=== PATIENT | male | born 1965 | race Caucasian/White ===

== ENCOUNTER → 2016-11-08 | Outpatient (CLI) | payer OTHER ==
--- NOTE | 2016-11-13 09:52 | SLEEPHOME ---
DATE OF PROCEDURE: 11/08/2016 ORDERED BY: Merna Canales NP Diagnostic home sleep testing was performed due to concern for the obstructive sleep apnea syndrome in this patient with a history of nonrestorative. For testing, NOX-T3 respiratory monitoring device was utilized. Continuous record was made of pulse, oxygen saturation, chest and abdominal strain, airflow, and body position. 4 hours and 34 minutes of data were reviewed. Of these, 4 hours and 7 minutes were marked as time in bed. During the interval marked time in bed, there were 56 respiratory events identified of 10 seconds in duration or greater for a respiratory event index of 13.6. The events were primarily obstructive. Occasional central and mixed apneas were also seen. Baseline pulse rate 66 beats per minute. Pulse rate ranged 58-89 beats per minute. Baseline oxygen saturation 91%. Lowest oxygen saturation 83%. Testing was performed in both the supine and non-supine positions. IMPRESSION: Abnormal home sleep testing with repetitive respiratory events and oxygen desaturations to 83% with a respiratory event index of 13.6 is consistent with the obstructive sleep apnea syndrome. RECOMMENDATION: The patient should be referred for a formal sleep evaluation and in-laboratory pressure titration given the significant oxygen desaturations and occurrence of central apneic events.
== END ==
LOC: M SLEEP 09:03
PROVIDERS: ATTEND Nurse Practitioner Adult Health
DX: G47.30 Sleep apnea, unspecified (principal); R40.0 Somnolence

== ENCOUNTER → 2017-03-01 | Outpatient (REF) | payer OTHER | LOC: M SFHCPLAZ 08:53 | PROVIDERS: ATTEND Family Medicine | DX: Z13.9 Encounter for screening, unspecified (principal); R51 Headache ==

== ENCOUNTER → 2017-04-08 | Outpatient (REF) | payer OTHER | LOC: M SFHCPLAZ 10:54 | PROVIDERS: ATTEND Family Medicine | DX: R68.89 Other general symptoms and signs (principal); N52.9 Male erectile dysfunction, unspecified ==

== ENCOUNTER → 2017-04-15 | Outpatient (REF) | payer OTHER ==
[2017-04-18 14:15] LABS: METANEPHRINE URINE 190 ug/24 hr (45-290); NORMETANEPHRINE URINE 254 ug/24 hr (82-500)
== END ==
LOC: M SFHCPLAZ 17:56
PROVIDERS: ATTEND Family Medicine
DX: R68.89 Other general symptoms and signs (principal)

== ENCOUNTER → 2018-01-13 | Outpatient (REF) | payer OTHER ==
[2018-01-13 12:40] LABS: ESTIMATED AVERAGE GLUCOSE 143 MG/DL (60-110); HEMOGLOBIN A1c 6.6 %
[2018-01-13 12:53] LABS: ALKALINE PHOSPHATASE 78 U/L (45-117); ALT/SGPT 46 U/L (12-78); ANION GAP 8 MEQ/L (8-16); AST/SGOT 17 U/L (7-37); BILIRUBIN,TOTAL 0.2 MG/DL (0.2-1.0); BLOOD UREA NITROGEN 19 MG/DL (7-18); CALCIUM LEVEL 8.4 MG/DL (8.5-10.1); CARBON DIOXIDE LEVEL 25 MEQ/L (21-32); CHLORIDE LEVEL 110 MEQ/L (98-107); CREATININE FOR GFR 1.09 MG/DL (0.70-1.30); GLOMERULAR FILTRATION RATE > 60.0 (>56); GLUCOSE, FASTING 108 MG/DL (70-100); POTASSIUM SERUM 4.5 MEQ/L (3.5-5.1); SODIUM LEVEL 143 MEQ/L (136-145)
[2018-01-13 12:54] LABS: ALBUMIN 3.8 GM/DL (3.2-5.2); ALBUMIN/GLOBULIN RATIO 1.23 (1.00-1.93); CHOLESTEROL LEVEL 189 MG/DL (<200); CHOLESTEROL RISK RATIO 5.906 (<5); HDL CHOLESTEROL 32 MG/DL (>40); NON-HDL-C 157 MG/DL; PSA SCREENING 1.14 NG/ML (< 4.0); TOTAL PROTEIN 6.9 GM/DL (6.4-8.2); TRIGLYCERIDES LEVEL 260 MG/DL (<150)
== END ==
LOC: M SFHCPLAZ 09:26
DX: Z00.00 Encounter for general adult medical examination without abnormal findings (principal)
CPT/HCPCS: 83036

== ENCOUNTER → 2018-03-19 | Outpatient (REF) | payer OTHER ==
[2018-03-19 13:10] LABS: ANION GAP 3 MEQ/L (8-16); BLOOD UREA NITROGEN 14 MG/DL (7-18); CARBON DIOXIDE LEVEL 30 MEQ/L (21-32); CHLORIDE LEVEL 110 MEQ/L (98-107); CHOLESTEROL LEVEL 128 MG/DL (<200); CHOLESTEROL RISK RATIO 3.764 (<5); CREATININE FOR GFR 1.04 MG/DL (0.70-1.30); GLOMERULAR FILTRATION RATE > 60.0 (>56); GLUCOSE, FASTING 106 MG/DL (70-100); HDL CHOLESTEROL 34 MG/DL (>40); LDL CHOLESTEROL 54.4 MG/DL (<100); NON-HDL-C 94 MG/DL; POTASSIUM SERUM 4.6 MEQ/L (3.5-5.1); PSA SCREENING 1.41 NG/ML (< 4.0); SODIUM LEVEL 143 MEQ/L (136-145); TRIGLYCERIDES LEVEL 198 MG/DL (<150); URIC ACID 4.9 MG/DL (3.5-7.2)
[2018-03-19 13:31] LABS: CREATININE, URINE 86.4 MG/DL; MALB URINE SIEMENS < 5.0 MG/L; MAU/CREAT RATIO 5.7 MCG/MG (0.0-30.0)
[2018-03-19 13:49] LABS: ESTIMATED AVERAGE GLUCOSE 131 MG/DL (60-110); HEMOGLOBIN A1c 6.2 %
== END ==
LOC: M SFHCPLAZ 08:51
DX: Z12.5 Encounter for screening for malignant neoplasm of prostate (principal); E11.9 Type 2 diabetes mellitus without complications; M70.42 Prepatellar bursitis, left knee

== ENCOUNTER → 2019-05-04 | Outpatient (REF) | payer OTHER ==
[2019-05-04 10:07] LABS: BLOOD UREA NITROGEN 19 MG/DL (7-18); CARBON DIOXIDE LEVEL 26 MEQ/L (21-32); CHLORIDE LEVEL 110 MEQ/L (98-107); CHOLESTEROL LEVEL 198 MG/DL (<200); CHOLESTEROL RISK RATIO 6.187 (<5); CREATININE FOR GFR 1.13 MG/DL (0.70-1.30); GLOMERULAR FILTRATION RATE > 60.0 (>56); GLUCOSE, FASTING 124 MG/DL (70-100); HDL CHOLESTEROL 32 MG/DL (>40); NON-HDL-C 166 MG/DL; POTASSIUM SERUM 4.7 MEQ/L (3.5-5.1); SODIUM LEVEL 141 MEQ/L (136-145); TRIGLYCERIDES LEVEL 511 MG/DL (<150)
[2019-05-04 11:20] LABS: HEMOGLOBIN A1c 6.3 %
== END ==
LOC: M SFHCPLAZ 08:14
PROVIDERS: ATTEND Family Medicine
DX: E11.9 Type 2 diabetes mellitus without complications (principal); I10 Essential (primary) hypertension

== ENCOUNTER → 2019-06-13 | Outpatient (CLI) | payer OTHER ==
--- NOTE | 2019-06-16 07:34 | REP ---
MRI LUMBAR SPINE WITHOUT CONTRAST REASON FOR EXAMINATION: Right sided weakness. COMPARISON: None. TECHNIQUE: MRI of the lumbar spine was performed utilizing sagittal STIR, T1 and T2 and axial T1 and T2 weighted images without contrast. FINDINGS: There is normal alignment and curvature of the lumbar spine. Vertebral body and intervertebral disc heights are maintained. There is mild disc desiccation at L3-L4 and L4-L5. There is no bone marrow edema. There is no significant spinal canal stenosis or neural foraminal compromise. The visualized spinal cord are unremarkable. The conus medullaris terminates at L1-L2. The paraspinal soft-tissue are within normal limits. LEVEL SPECIFIC OBSERVATIONS: L3-L4: Mild disc bulge with indentation along the ventral thecal sac. Bilateral facet arthropathy. Mild spinal canal stenosis. No neural foraminal compromise. L4-L5, L5-S1: Bilateral facet arthropathy. Note is made of a 2.4 cm Tarlov cyst at S2 on the left with effacement of the surrounding fat and scalloping of the S2 vertebral body. IMPRESSION: 1. L3-L4 spondylosis with mild narrowing of the spinal canal. The remaining lumbar levels are without significant spinal canal stenosis of neural foraminal compromise. 2. 2cm Tarlov cyst at S2 on the left with scalloping of S2 vertebral body. Electronically Signed by Jesse Marrero MD 06/17/2019 08:51 A
== END ==
LOC: M RAD 11:22
PROVIDERS: ATTEND Family Medicine
DX: R53.1 Weakness (principal)

== ENCOUNTER → 2019-07-20 | Outpatient (CLI) | payer OTHER ==
--- NOTE | 2019-07-31 01:09 | ECWPNPC ---
PATIENT NAME: VIRIDIANA CASTANEDA : 1965 GENDER: MALE VISIT DATE: 07/20/2019 DISCHARGE DATE: 07/20/19 1208 VISIT LOCKED DATE TIME: PHYSICIAN: PATRICIA MCCOY MD RESOURCE: PATRICIA MCCOY MD REASON FOR APPOINTMENT 1. LBP HISTORY OF PRESENT ILLNESS HISTORY OF PRESENT ILLNESS: PAIN THE PATIENT DESCRIBES THE PAIN... 54 YEAR OLD MALE PATIENT WITH A HISTORY OF CHRONIC LOW BACK AND LEG PAIN. THE PATIENT DESCRIBES THE PAIN ACHING, BURNING, STABBING, SHOOTING, SHARP, AND CONTINUOUS WITH A PAIN SCORE OF 6-10/10 DEPENDING ON PHYSICAL ACTIVITY. THE PATIENT STATES HIS PAIN BEGINS IN HIS LOW BACK AND RADIATES DOWN BOTH LEGS. THE PATIENT STATES HIS PAIN BEGAN AFTER HE TWISTED HIS BACK IN THE BATHROOM IN FEBRUARY OF THIS YEAR AND HAS SINCE GOTTEN WORSE. THE PATIENT SAYS HIS PAIN INCREASES FROM LIFTING OBJECTS AND AFTER STANDING FOR LONG PERIODS OF TIME HE NEEDS TO SIT TO REST FROM THE PAIN. THE PATIENT SAYS HE HAS TRIED GABAPENTIN AND IBUPROFEN TO AID IN PAIN RELIEF, YET THE PAIN PERSISTS. 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 PATIENT DENIES UNEXPLAINABLE WEIGHT LOSS, FEVER, CHILLS, NEW CHANGES ON HIS URINARY OR BOWEL CONTROL. FALL RISK SCREENING: SCREENING :NO FALLS REPORTED IN THE LAST YEAR CURRENT MEDICATIONS TAKING NEXIUM 40 MG CAPSULE DELAYED RELEASE 1 CAPSULE ORALLY ONCE A DAY TAKING GLUCOMETER DIRECTED CHECK SUGAR DAILY TAKING BLOOD GLUCOSE TEST - STRIP DIRECTED IN VITRO DAILY ON SIDE OF FINGER. DX: E11.9 TAKING LANCETS - MISCELLANEOUS DIRECTED ON SIDE OF FINGER DAILY BEFORE BREAKFAST. DX: E11.9 TAKING NITROGLYCERIN 0.4 MG TABLET SUBLINGUAL DIRECTED SUBLINGUAL DAILY TAKING FLONASE ALLERGY RELIEF 50 MCG/ACT SUSPENSION 1 SPRAY IN EACH NOSTRIL NASALLY ONCE A DAY, NOTES: PRN TAKING METHYLPREDNISOLONE 4 MG TABLET 1 TABLET WITH FOOD OR MILK IN THE MORNING ORALLY TAKING TRAMADOL HCL 50 MG TABLET 1 TABLET NEEDED ORALLY THREE TIMES DAILY NEEDED FOR PAIN. MDD 3 TAKING IBUPROFEN 800 MG TABLET 1 TABLET WITH FOOD OR MILK NEEDED ORALLY TWICE DAILY NEEDED FOR SEVERE PAIN, NOTES: ALTERNATE WITH ULTRACET TAKING PREDNISONE 10 MG TABLET 2 TABLET ORALLY TWICE DAILY TAKING ADRENACLICK 0.3 MG/0.3ML SOLUTION AUTO-INJECTOR DIRECTED INJECTION AT ONSET OF BEE STING AND THEN PROCEED TO ER FOR MONITORING, NOTES: KEEP ONE AT HOME AND ONE IN THE CAR. NOT-TAKING NAPROXEN 500 MG TABLET 1 TABLET WITH FOOD OR MILK NEEDED ORALLY EVERY 12 HRS NOT-TAKING METOPROLOL SUCCINATE ER 50 MG TABLET EXTENDED RELEASE 24 HOUR 1 TABLET ORALLY ONCE A DAY NOT-TAKING TIZANIDINE HCL 4 MG TABLET 1 TABLET NEEDED ORALLY THREE TIMES A DAY NOT-TAKING PREDNISONE 20 MG TABLET 3 TABLET ORALLY ONCE A DAY NOT-TAKING LYRICA 50 MG CAPSULE 1 CAPSULE ORALLY BID NOT-TAKING ASPIRIN 81 MG TABLET CHEWABLE 1 TABLET ORALLY ONCE A DAY NOT-TAKING VERAPAMIL HCL ER 120 MG TABLET EXTENDED RELEASE 1 TABLET ORALLY ONCE A DAY NOT-TAKING ATORVASTATIN CALCIUM 40 MG TABLET 1 TABLET ORALLY ONCE A DAY NOT-TAKING BUSPIRONE HCL 10 MG TABLET 1 TABLET ORALLY TWICE A DAY NOT-TAKING SILDENAFIL CITRATE 20 MG TABLET DIRECTED ORALLY 3-5 TABS 30 MIN TO 4 HOURS PRIOR TO SEXUAL ACTIVITY. MDD 4, NOTES: DO NOT SUBMIT TO INSURANCE. PT TO PAY [id number] NOT-TAKING LISINOPRIL 2.5 MG TABLET 1 TABLET ORALLY ONCE A DAY NOT-TAKING METFORMIN HCL 500 MG TABLET 2 TABS AT MEALS ORALLY TWICE A DAY, NOTES: START WITH ONE TAB AT DINNER FOR 5 DAYS, THEN INCREASE TO 1 TAB AT BREAKFAST AND DINNER FOR 5 DAYS, THEN INCREASE TO 2 TABS TWICE DAILY NOT-TAKING GABAPENTIN 300 MG CAPSULE 1 CAPSULE ORALLY THREE TIMES DAILY NOT-TAKING NAPROXEN 500 MG TABLET 1 TABLET WITH FOOD OR MILK NEEDED ORALLY EVERY 12 HRS, NOTES: DUPLICATE NOT-TAKING NAPROXEN 500 MG TABLET 1 TABLET WITH FOOD OR MILK NEEDED ORALLY EVERY 12 HRS NOT-TAKING CHANTIX STARTING MONTH DEA 0.5 MG X 11 & 1 MG X 42 TABLET DIRECTED ORALLY DIRECTED ON PACKAGING NOT-TAKING PREDNISONE 20 MG TABLET 2 TABLET ORALLY ONCE A DAY NOT-TAKING LEVOFLOXACIN 500 MG TABLET 1 TABLET ORALLY ONCE A DAY NOT-TAKING TESSALON PERLES 100 MG CAPSULE 1 CAPSULE NEEDED ORALLY THREE TIMES A DAY NOT-TAKING METFORMIN HCL ER 500 MG TABLET EXTENDED RELEASE 24 HOUR 2 TABLET WITH EVENING MEAL ORALLY ONCE A DAY DISCONTINUED TRAMADOL HCL 50 MG TABLET 1 TABLET NEEDED ORALLY BID MEDICATION LIST REVIEWED AND RECONCILED WITH THE PATIENT PAST MEDICAL HISTORY GERD ALLERGIES PENICILLIN (FOR ALLERGIES USE ONLY): HIVES - ALLERGY BEE STINGS : ANAPHYLAXIS - ALLERGY SURGICAL HISTORY [facility] 2001 FAMILY HISTORY FATHER: 75 YRS MOTHER: ALIVE 75 YRS BROTHER: ALIVE 51 YRS, UNKNOWN SISTER: ALIVE 53 YRS, HEALTHY 1 BROTHER(S) , 3 SISTER(S) . 2DAUGHTER(S) - HEALTHY. SOCIAL HISTORY GENERAL: TOBACCO USE ARE YOU A:CURRENT SMOKER ARE YOU INTERESTED IN QUITTING?READY TO QUIT PREVIOUS QUIT ATTEMPTS?YES, MORE THAN 6 MONTHS AGO. COUNSELED THE PATIENT ON TOBACCO USE, CESSATION [id number]/16/2019 HOW MANY CIGARETTES A DAY DO YOU SMOKE?21-30 HOW SOON AFTER YOU WAKE UP DO YOU SMOKE YOUR FIRST CIGARETTE?6-30 MIN HOW OFTEN DO YOU SMOKE CIGARETTES?EVERY DAY PATIENT COUNSELED ON THE DANGERS OF TOBACCO USE AND URGED TO QUIT:10/08/2016 HIV / HEP-C SCREENING HIV TEST OFFERED TO PATIENT:YES DATE OFFERED:10/08/2016 TEST ACCEPTED:YES HEP-C TEST OFFERED TO PATIENT:YES DATE OFFERED:10/08/2016 TEST ACCEPTED:YES EDUCATION COLLEGE. DIET: REGULAR. LANGUAGE [place]. DOMESTIC VIOLENCE DO YOU FEEL SAFE IN YOUR ENVIRONMENT?YES BMI CARE GOAL FOLLOW-UP ABOVE NORMAL BMI FOLLOW-UPEXERCISE PROMOTION: STRETCHING RECREATIONAL DRUG USE DRUG USE?NO EXERCISE: NO REGULAR EXERCISE. 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 CLINIC PFS, CLERGY, PUBLIC HEALTH REFERRALS HAS THE PATIENT BEEN EDUCATED REGARDING HIS/HER PLAN OF CARE?YES HAS THE PATIENT BEEN EDUCATED REGARDING PAIN, THE RISK FOR PAIN, THE IMPORTANCE OF EFFECTIVE PAIN MANAGEMENT, AND THE PAIN ASSESSMENT PROCESS?YES LATEX QUESTIONNAIRE LATEX ALLERGY : HAVE YOU EVER DEVELOPED ANY TYPE OF REACTION AFTER HANDLING LATEX PRODUCTS SUCH RUBBER GLOVES, CONDOMS, DIAPHRAGMS, BALLOONS, SOCKS, OR UNDERWEAR?NO LATEX ALLERGY : HAVE YOU EVER DEVELOPED ANY TYPE OF REACTION DURING OR AFTER DENTAL APPOINTMENT, VAGINAL/RECTAL EXAMINATION, SURGICAL PROCEDURE, OR ANY OTHER EXPOSURE?NO DATE ASKED : 04/08/2019 LATEX RISK : HAVE YOU EVER HAD ANY DIFFICULTY BREATHING OR HIVES AFTER EATING OR HANDLING ANY FRUITS, OR VEGETABLES; SUCH KIWI, BANANAS, STONE FRUITS, OR CHESTNUTSNO LATEX RISK : DO YOU HAVE A PREVIOUS PERSONAL HISTORY OF MORE THAN NINE SURGERIES, SPINA BIFIDA, OR REPEATED CATHERIZATIONS? NO LATEX RISK : ARE YOU FREQUENTLY EXPOSED TO LATEX PRODUCTS IN YOUR OCCUPATION?YES CAFFEINE CAFFEINE USE?NO ADVANCE DIRECTIVE ADVANCE DIRECTIVE DISCUSSED WITH PATIENT:YES DECLINED CATHOLIC NO YAZIDI BELIEFS THAT WOULD IMPACT HEALTH CARE. MARITAL STATUS: . 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 SEXUAL HX HAD SEX IN THE LAST 12 MONTHS (VAGINAL, ORAL, OR ANAL)?YES WITHWOMEN ONLY PREVENTION STRATEGIES DISCUSSED:OTHER USE PROTECTION?NO HAVE YOU EVER HAD AN STD?NO HOSPITALIZATION/MAJOR DIAGNOSTIC PROCEDURE DENIES PAST HOSPITALIZATION REVIEW OF SYSTEMS REVIEWED BY: PROVIDER: PATRICIA MCCOY MD . CONSTITUTIONAL: ANY CHANGE IN YOUR MEDICAL CONDITION? NO . CHILLS NO . FEVER NO . INFECTION: DO YOU HAVE NEW INFECTIONS? NO . DO YOU HAVE HISTORY OF MRSA? NO . MUSCULOSKELETAL: ANY NEW PATTERNS OF PAIN OR NUMBNESS? NO . GASTROENTEROLOGY: ANY NEW CHANGE IN BOWEL CONTROL? NO . GENITOURINARY: ANY NEW CHANGE IN BLADDER CONTROL? NO . IS THERE A CHANCE YOU COULD BE ? NO . HEMATOLOGY/LYMPH: DO YOU TAKE ANY BLOOD THINNERS? (FOR EXAMPLE- COUMADIN, PLAVIX, AGGRENOX, PLATEL, PRADAXA, OR XARELTO) NO . WHEN WAS YOUR LAST DOSE? DATE: TIME: . NEUROLOGY: HAVE YOU FALLEN IN THE PAST 12 MONTHS? NO . ANY NEW EXTREMITY NUMBNESS OR WEAKNESS? YES, BILAT LEG WEAKNESS, NUMBNESS BURNING PAIN . CARDIOLOGY: DO YOU HAVE A PACEMAKER OR DEFIBRILLATOR? NO . RESPIRATORY: HAVE YOU BEEN SICK IN THE PAST WEEK? NO . FEVER NO . FLU LIKE SYMPTOMS? NO . COUGH NO . INTEGUMENTARY: DO YOU HAVE ANY RASHES OR OPEN SORES? NO . ALLERGIC/IMMUNO: ARE YOU ALLERGIC TO IV DYE? NO . ANY NEW ALLERGIES? NO . PSYCHIATRIC: DO YOU HAVE THOUGHTS OF HURTING YOURSELF OR SOMEONE ELSE? NO . ARE YOU ABUSED, NEGLECTED, OR IN AN UNSAFE ENVIRONMENT? NO . ENDOCRINOLOGY: ARE YOU DIABETIC? NO . OTHER: DO YOU NEED ANY PRESCRIPTIONS? NO . IF YES, PLEASE LIST: ____ . ANY NEW PROBLEMS WITH YOUR MEDICATIONS? NO . WHEN DID YOU LAST EAT? ____ . WHEN DID YOU LAST DRINK? ____ . WHAT DID YOU LAST DRINK? ____ . NAME OF PERSON DRIVING YOU HOME? ____ . DO YOU HAVE ANY OTHER QUESTIONS OR CONCERNS NO . VITAL SIGNS WT 245.8 LBS, HT 67 IN, BMI 38.49 INDEX, BP 135/86 MM HG, HR 78 /MIN, RR 18 /MIN, TEMP 98.0 F, OXYGEN SAT % 98%, NA INITIALS AW 1034, REVIEWED BY: EM. EXAMINATION GENERAL EXAMINATION: PATIENT IS ALERT O X 3 AND COOPERATIVE. LUNGS CLEAR, TO AUSCULTATION. HEART: NO MURMURS OR GALLOPS; FACIAL CRANIAL NERVES ARE GROSSLY NORMAL. GOOD SYMMETRY OF FACIAL MUSCLE MOVEMENT. NORMAL VISUAL CHA. TENDERNESS IN THE LOW BACK, ESPECIALLY ON THE RIGHT SIDE. ANTALGIC WALK. STRAIGHT LEG RAISE OF THE RIGHT LEG IS POSITIVE AT 40 DEGREES AND 50 DEGREES FOR THE LEFT LEG FOR RADICULOPATHY. MRI OF THE LUMBAR SPINE DONE ON 06/13/2019 SHOWS BULGING DISC AT L3-L4, SOME SPINAL STENOSIS, AND FACET ARTHROPATHY CHANGES AT MULTIPLE LEVELS. ASSESSMENTS INTERVERTEBRAL DISC DISORDER WITH RADICULOPATHY OF LUMBAR REGION - M51.16 (PRIMARY) SPINAL STENOSIS OF LUMBAR REGION, UNSPECIFIED WHETHER NEUROGENIC CLAUDICATION PRESENT - M48.061 TREATMENT INTERVERTEBRAL DISC DISORDER WITH RADICULOPATHY OF LUMBAR REGION CLINICAL NOTES: WE DISCUSSED SEVERAL ISSUES WITH MR. CASTANEDA' PAIN MANAGEMENT CASE. DUE TO THE LUMBAR RADICULOPATHY, I WOULD LIKE TO MOVE FORWARD WITH A LUMBAR EPIDURAL STEROID INJECTION AT THIS TIME. WE DISCUSSED THE BENEFITS, RISKS, AND ALTERNATIVES OF THE INJECTION AND THE PATIENT WOULD LIKE TO PROCEED. I AM REQUESTING FOR A DOCTOR TO DOCTOR AGREEMENT FROM THE PRIMARY CARE PHYSICIAN TO PRESCRIBE NARCOTICS FOR THE PATIENT. THE PATIENT WILL FOLLOW UP IN SEVERAL WEEKS AFTER THE INJECTION. INSTRUCTIONS WERE GIVEN, QUESTIONS WERE ANSWERED, PATIENT REPORTS UNDERSTANDING AND AGREES WITH THE PLAN. I, RADHIKA PAK, DOCUMENTED THE ABOVE INFORMATION ACTING A SCRIBE FOR DR. MCCOY. I HAVE REVIEWED THE ABOVE DOCUMENT, WRITTEN BY RADHIKA WHITFIELD AND I VERIFY THAT IT IS ACCURATE. DEAR KENJI CROOK MD: THANK YOU FOR YOUR KIND REFERRAL OF VIRIDIANA CASTANEDA. IF YOU WANT TO DISCUSS HIS CASE WITH ME PLEASE CALL ME AT THE PAIN CENTER AT [phone]. SINCERELY, PATRICIA MCCOY MD PAIN MEDICINE . PROCEDURE CODES FA211 ESTABILISHED PATIENT [facility] FACILITY CHARGE [id number] CURRENT MEDS W/DOSAGES DOCUMENTED G8730 PAIN ASSESS POS TOOL F/U PLAN DOC DISPOSITION & COMMUNICATION FOLLOW UP REASON: LESI ELECTRONICALLY SIGNED BY PATRICIA MCCOY MD, MD ON 07/30/2019 AT 05:56 PM EDT DISCLAIMER : THIS IS A VISIT SUMMARY EXTRACTED FROM THE [employer] CHART. IT IS NOT A COPY OF THE [employer] PROGRESS NOTE. MTDD
== END ==
LOC: M PAIN 10:15
PROVIDERS: ATTEND Anesthesiology
DX: M51.16 Intervertebral disc disorders with radiculopathy, lumbar region (principal); M48.061 Spinal stenosis, lumbar region without neurogenic claudication; K21.9 Gastro-esophageal reflux disease without esophagitis; F17.210 Nicotine dependence, cigarettes, uncomplicated; Z79.891 Long term (current) use of opiate analgesic; Z79.899 Other long term (current) drug therapy; Z96.651 Presence of right artificial knee joint; Z88.0 Allergy status to penicillin; Z91.030 Bee allergy status

== ENCOUNTER → 2019-08-13 | Outpatient (CLI) | payer OTHER, SELFPAY ==
--- NOTE | 2019-08-13 13:00 | REP ---
Lumbar spine four views with the patient standing: There are no comparisons. There is questionable bilateral L5 spondylolysis. A CT or MRI would be confirmatory. There is no spondylolisthesis. There is mild disc space narrowing and anterior osteophytic formation and L3, L4 and L5 compatible with degenerative disc disease at these levels. The disc spaces are otherwise unremarkable. Vertebral body heights and alignment are normal. The facets and pedicles are unremarkable. The sacroiliac articulations are unremarkable. Impression: Questionable bilateral L5 spondylolysis. This could be confirmed with CT or MRI. There is no spondylolisthesis. Multilevel degenerative disc disease. Otherwise, negative lumbar spine. Electronically Signed by Jaylon Bell MD 08/13/2019 12:52 P
== END ==
LOC: M RAD 11:23
PROVIDERS: ATTEND Family Medicine
DX: M51.36 Other intervertebral disc degeneration, lumbar region (principal); M48.062 Spinal stenosis, lumbar region with neurogenic claudication

== ENCOUNTER → 2019-08-25 | Outpatient (CLI) | payer OTHER ==
[~2019-08-25] MED LIST: ISOVUE-M 300 61% 15ML VIAL (Q9967) As Ordered ONE; LIDOCAINE 1% SDV INJ 30 ML VIAL As Ordered ONE; methylPREDNISolone SUSP 40 MG/ML (DEPO-medrol) VIAL (J1030) As Ordered ONE
--- NOTE | 2019-08-25 17:39 | REP ---
C-ARM VIEWS LUMBAR SPINE: CLINICAL HISTORY: Pain. Three C-ARM views lower lumbar spine are performed during injection by Dr. Lazo. Needle is seen at the L4 level and a small amount of contrast was injected. 12 seconds of fluoroscopy time was utilized. Electronically Signed by Jaylon Bell MD 08/26/2019 02:16 P
--- NOTE | 2019-08-29 23:12 | ECWPNPC ---
PATIENT NAME: VIRIDIANA CASTANEDA : 1965 GENDER: MALE VISIT DATE: 08/25/2019 DISCHARGE DATE: 08/25/19 1052 VISIT LOCKED DATE TIME: PHYSICIAN: PATRICIA MCCOY MD RESOURCE: PATRICIA MCCOY MD REASON FOR APPOINTMENT 1. L3-L4 LESI HISTORY OF PRESENT ILLNESS HISTORY OF PRESENT ILLNESS: PAIN THE PATIENT DESCRIBES THE PAIN... FALL RISK SCREENING: SCREENING :NO FALLS REPORTED IN THE LAST YEAR CURRENT MEDICATIONS TAKING NEXIUM 40 MG CAPSULE DELAYED RELEASE 1 CAPSULE ORALLY ONCE A DAY TAKING GLUCOMETER DIRECTED CHECK SUGAR DAILY TAKING BLOOD GLUCOSE TEST - STRIP DIRECTED IN VITRO DAILY ON SIDE OF FINGER. DX: E11.9 TAKING LANCETS - MISCELLANEOUS DIRECTED ON SIDE OF FINGER DAILY BEFORE BREAKFAST. DX: E11.9 TAKING NITROGLYCERIN 0.4 MG TABLET SUBLINGUAL DIRECTED SUBLINGUAL DAILY, NOTES: NEVER TAKEN TAKING FLONASE ALLERGY RELIEF 50 MCG/ACT SUSPENSION 1 SPRAY IN EACH NOSTRIL NASALLY ONCE A DAY, NOTES: PRN TAKING ADRENACLICK 0.3 MG/0.3ML SOLUTION AUTO-INJECTOR DIRECTED INJECTION AT ONSET OF BEE STING AND THEN PROCEED TO ER FOR MONITORING, NOTES: KEEP ONE AT HOME AND ONE IN THE CAR. TAKING NAPROXEN 500 MG TABLET 1 TABLET WITH FOOD OR MILK NEEDED ORALLY EVERY 12 HRS TAKING GABAPENTIN 300 MG CAPSULE 2CAPSULE ORALLY THREE TIMES DAILY, NOTES: 08/24/19 2100 NOT-TAKING METHYLPREDNISOLONE 4 MG TABLET 1 TABLET WITH FOOD OR MILK IN THE MORNING ORALLY NOT-TAKING TRAMADOL HCL 50 MG TABLET 1 TABLET NEEDED ORALLY THREE TIMES DAILY NEEDED FOR PAIN. MDD 3 NOT-TAKING PREDNISONE 10 MG TABLET 2 TABLET ORALLY TWICE DAILY NOT-TAKING IBUPROFEN 800 MG TABLET 1 TABLET WITH FOOD OR MILK NEEDED ORALLY TWICE DAILY NEEDED FOR SEVERE PAIN, NOTES: ALTERNATE WITH ULTRACET NOT-TAKING PREDNISOLONE 5 MG (21) TABLET THERAPY PACK DIRECTED ORALLY NOT-TAKING PREDNISONE 20 MG TABLET 2 TABLET ORALLY ONCE A DAY, NOTES: ONE WEEK AGO NOT-TAKING METOPROLOL SUCCINATE ER 50 MG TABLET EXTENDED RELEASE 24 HOUR 1 TABLET ORALLY ONCE A DAY NOT-TAKING TIZANIDINE HCL 4 MG TABLET 1 TABLET NEEDED ORALLY THREE TIMES A DAY NOT-TAKING PREDNISONE 20 MG TABLET 3 TABLET ORALLY ONCE A DAY NOT-TAKING LYRICA 50 MG CAPSULE 1 CAPSULE ORALLY BID NOT-TAKING ASPIRIN 81 MG TABLET CHEWABLE 1 TABLET ORALLY ONCE A DAY NOT-TAKING VERAPAMIL HCL ER 120 MG TABLET EXTENDED RELEASE 1 TABLET ORALLY ONCE A DAY NOT-TAKING ATORVASTATIN CALCIUM 40 MG TABLET 1 TABLET ORALLY ONCE A DAY NOT-TAKING BUSPIRONE HCL 10 MG TABLET 1 TABLET ORALLY TWICE A DAY NOT-TAKING SILDENAFIL CITRATE 20 MG TABLET DIRECTED ORALLY 3-5 TABS 30 MIN TO 4 HOURS PRIOR TO SEXUAL ACTIVITY. MDD 4, NOTES: DO NOT SUBMIT TO INSURANCE. PT TO PAY [id number] NOT-TAKING LISINOPRIL 2.5 MG TABLET 1 TABLET ORALLY ONCE A DAY NOT-TAKING METFORMIN HCL 500 MG TABLET 2 TABS AT MEALS ORALLY TWICE A DAY, NOTES: START WITH ONE TAB AT DINNER FOR 5 DAYS, THEN INCREASE TO 1 TAB AT BREAKFAST AND DINNER FOR 5 DAYS, THEN INCREASE TO 2 TABS TWICE DAILY NOT-TAKING NAPROXEN 500 MG TABLET 1 TABLET WITH FOOD OR MILK NEEDED ORALLY EVERY 12 HRS, NOTES: DUPLICATE NOT-TAKING NAPROXEN 500 MG TABLET 1 TABLET WITH FOOD OR MILK NEEDED ORALLY EVERY 12 HRS NOT-TAKING CHANTIX STARTING MONTH DEA 0.5 MG X 11 & 1 MG X 42 TABLET DIRECTED ORALLY DIRECTED ON PACKAGING NOT-TAKING PREDNISONE 20 MG TABLET 2 TABLET ORALLY ONCE A DAY NOT-TAKING LEVOFLOXACIN 500 MG TABLET 1 TABLET ORALLY ONCE A DAY NOT-TAKING TESSALON PERLES 100 MG CAPSULE 1 CAPSULE NEEDED ORALLY THREE TIMES A DAY NOT-TAKING METFORMIN HCL ER 500 MG TABLET EXTENDED RELEASE 24 HOUR 2 TABLET WITH EVENING MEAL ORALLY ONCE A DAY MEDICATION LIST REVIEWED AND RECONCILED WITH THE PATIENT PAST MEDICAL HISTORY GERD ALLERGIES PENICILLIN (FOR ALLERGIES USE ONLY): HIVES - ALLERGY BEE STINGS : ANAPHYLAXIS - ALLERGY SURGICAL HISTORY [facility] FAMILY HISTORY FATHER: 75 YRS MOTHER: ALIVE 75 YRS BROTHER: ALIVE 51 YRS, UNKNOWN SISTER: ALIVE 53 YRS, HEALTHY 1 BROTHER(S) , 3 SISTER(S) . 2DAUGHTER(S) - HEALTHY. SOCIAL HISTORY GENERAL: TOBACCO USE ARE YOU A:CURRENT SMOKER ARE YOU INTERESTED IN QUITTING?READY TO QUIT CUTTING DOWN PREVIOUS QUIT ATTEMPTS?YES, MORE THAN 6 MONTHS AGO. COUNSELED THE PATIENT ON TOBACCO USE, CESSATION [id number]/16/2019 HOW MANY CIGARETTES A DAY DO YOU SMOKE?21-30 HOW SOON AFTER YOU WAKE UP DO YOU SMOKE YOUR FIRST CIGARETTE?6-30 MIN HOW OFTEN DO YOU SMOKE CIGARETTES?EVERY DAY PATIENT COUNSELED ON THE DANGERS OF TOBACCO USE AND URGED TO QUIT:10/08/2016 HIV / HEP-C SCREENING HIV TEST OFFERED TO PATIENT:YES DATE OFFERED:10/08/2016 TEST ACCEPTED:YES HEP-C TEST OFFERED TO PATIENT:YES DATE OFFERED:10/08/2016 TEST ACCEPTED:YES EDUCATION COLLEGE. DIET: REGULAR. LANGUAGE LAO. DOMESTIC VIOLENCE DO YOU FEEL SAFE IN YOUR ENVIRONMENT?YES BMI CARE GOAL FOLLOW-UP ABOVE NORMAL BMI FOLLOW-UPEXERCISE PROMOTION: STRETCHING RECREATIONAL DRUG USE DRUG USE?NO EXERCISE: NO REGULAR EXERCISE. LEARNING BARRIERS / SPECIAL NEEDS CHANGE FROM LAST VISIT?NO BARRIERS TO LEARNING?NO HEARING IMPAIRED?NO VISION IMPAIRED?YES COGNITIVELY IMPAIRED?NO :CORRECTIVE LENSES READING READINESS TO LEARN?YES LEARNING PREFERENCES?YES :DEMONSTRATION/VERBAL INSTRUCTION LEARNING CAPABILITIES PRESENT?YES EMOTIONAL BARRIERS?NO SPECIAL DEVICES?NO CORPORATE AIRCRAFT MECHANIC NEEDED?NO PAIN CLINIC PFS, CLERGY, PUBLIC HEALTH REFERRALS HAS THE PATIENT BEEN EDUCATED REGARDING HIS/HER PLAN OF CARE?YES HAS THE PATIENT BEEN EDUCATED REGARDING PAIN, THE RISK FOR PAIN, THE IMPORTANCE OF EFFECTIVE PAIN MANAGEMENT, AND THE PAIN ASSESSMENT PROCESS?YES LATEX QUESTIONNAIRE LATEX ALLERGY : HAVE YOU EVER DEVELOPED ANY TYPE OF REACTION AFTER HANDLING LATEX PRODUCTS SUCH RUBBER GLOVES, CONDOMS, DIAPHRAGMS, BALLOONS, SOCKS, OR UNDERWEAR?NO LATEX ALLERGY : HAVE YOU EVER DEVELOPED ANY TYPE OF REACTION DURING OR AFTER DENTAL APPOINTMENT, VAGINAL/RECTAL EXAMINATION, SURGICAL PROCEDURE, OR ANY OTHER EXPOSURE?NO DATE ASKED : 04/08/2019 LATEX RISK : HAVE YOU EVER HAD ANY DIFFICULTY BREATHING OR HIVES AFTER EATING OR HANDLING ANY FRUITS, OR VEGETABLES; SUCH KIWI, BANANAS, STONE FRUITS, OR CHESTNUTSNO LATEX RISK : DO YOU HAVE A PREVIOUS PERSONAL HISTORY OF MORE THAN NINE SURGERIES, SPINA BIFIDA, OR REPEATED CATHERIZATIONS? NO LATEX RISK : ARE YOU FREQUENTLY EXPOSED TO LATEX PRODUCTS IN YOUR OCCUPATION?YES CAFFEINE CAFFEINE USE?NO ADVANCE DIRECTIVE ADVANCE DIRECTIVE DISCUSSED WITH PATIENT:YES DECLINED INFORMATION OR ASSISTANCE AT THIS TIME ZOROASTRIAN NO METHODIST BELIEFS THAT WOULD IMPACT HEALTH CARE. MARITAL STATUS: . 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 SEXUAL HX HAD SEX IN THE LAST 12 MONTHS (VAGINAL, ORAL, OR ANAL)?YES WITHWOMEN ONLY PREVENTION STRATEGIES DISCUSSED:OTHER USE PROTECTION?NO HAVE YOU EVER HAD AN STD?NO HOSPITALIZATION/MAJOR DIAGNOSTIC PROCEDURE NO HOSPITALIZATION HISTORY. REVIEW OF SYSTEMS REVIEWED BY: PROVIDER: . CONSTITUTIONAL: ANY CHANGE IN YOUR MEDICAL CONDITION? NO . CHILLS NO . FEVER NO . INFECTION: DO YOU HAVE NEW INFECTIONS? NO . DO YOU HAVE HISTORY OF MRSA? NO . MUSCULOSKELETAL: ANY NEW PATTERNS OF PAIN OR NUMBNESS? YES PT REPORTS INCREASED PAIN RADIATING DOWN RIGHT LEG - THIS STARTED AFTER A LONG CAR RIDE BUT CONTINUES TODAY . GASTROENTEROLOGY: ANY NEW CHANGE IN BOWEL CONTROL? NO . GENITOURINARY: ANY NEW CHANGE IN BLADDER CONTROL? NO . IS THERE A CHANCE YOU COULD BE ? NO . HEMATOLOGY/LYMPH: DO YOU TAKE ANY BLOOD THINNERS? (FOR EXAMPLE- COUMADIN, PLAVIX, AGGRENOX, PLATEL, PRADAXA, OR XARELTO) NO . WHEN WAS YOUR LAST DOSE? DATE: TIME: . NEUROLOGY: HAVE YOU FALLEN IN THE PAST 12 MONTHS? NO . ANY NEW EXTREMITY NUMBNESS OR WEAKNESS? NO . CARDIOLOGY: DO YOU HAVE A PACEMAKER OR DEFIBRILLATOR? NO . RESPIRATORY: HAVE YOU BEEN SICK IN THE PAST WEEK? NO . FEVER NO . FLU LIKE SYMPTOMS? NO . COUGH NO . INTEGUMENTARY: DO YOU HAVE ANY RASHES OR OPEN SORES? NO . ALLERGIC/IMMUNO: ARE YOU ALLERGIC TO IV DYE? NO . ANY NEW ALLERGIES? NO . PSYCHIATRIC: DO YOU HAVE THOUGHTS OF HURTING YOURSELF OR SOMEONE ELSE? NO . ARE YOU ABUSED, NEGLECTED, OR IN AN UNSAFE ENVIRONMENT? NO . ENDOCRINOLOGY: ARE YOU DIABETIC? NO . OTHER: DO YOU NEED ANY PRESCRIPTIONS? NO . IF YES, PLEASE LIST: ____ . ANY NEW PROBLEMS WITH YOUR MEDICATIONS? NO . WHEN DID YOU LAST EAT? ____08/24/191999 . WHEN DID YOU LAST DRINK? ____08/25/19 06 . WHAT DID YOU LAST DRINK? ____WATER . NAME OF PERSON DRIVING YOU HOME? ____WIFE . DO YOU HAVE ANY OTHER QUESTIONS OR CONCERNS NO . VITAL SIGNS WT 247.8 LBS, HT 67 IN, BMI 38.81 INDEX, BP 161/90 MM HG, HR 84 /MIN, RR 18 /MIN, TEMP 97.8 F, OXYGEN SAT % 97%, SAFE IN ENV? (Y/N) YES, NA INITIALS AW 0910, REVIEWED BY: BRIAN. ASSESSMENTS INTERVERTEBRAL DISC DISORDER WITH RADICULOPATHY OF LUMBAR REGION - M51.16 (PRIMARY) TREATMENT INTERVERTEBRAL DISC DISORDER WITH RADICULOPATHY OF LUMBAR REGION [facility] FLUORO GUIDE SPINE INJECTION (PAIN)[id number] PROCEDURES PRE PROCEDURE DIAGNOSIS LUMBAR DISC DISORDER WITH RADICULOPATHY POST PROCEDURE DIAGNOSIS LUMBAR DISC DISORDER WITH RADICULOPATHY PROCEDURE LUMBAR EPIDURAL STEROID INJECTION UNDER FLUOROSCOPIC GUIDANCE SURGEON DR. PATRICIA MCCOY HEM MARKER NONE ANESTHESIA LOCAL PRE PROCEDURE NOTE THE PATIENT HAS A HISTORY OF CHRONIC LOW BACK PAIN. I EVALUATED THE PATIENT AND REVIEWED THE CHART. I WENT OVER THE RISKS, ALTERNATIVES, AND BENEFITS ASSOCIATED WITH THIS PROCEDURE. THE PATIENT WOULD LIKE TO PROCEED AND GIVES CONSENT TO PERFORM THE PROCEDURE. THE PATIENT DENIES UNEXPLAINABLE WEIGHT LOSS, FEVER, CHILLS, OR NEW CHANGES IN URINARY OR BOWEL CONTROL. DESCRIPTION OF PROCEDURE THE PATIENT WAS BROUGHT TO THE PROCEDURE ROOM AND PLACED IN THE PRONE POSITION. THE LUMBOSACRAL AREA WAS CLEANED WITH BETADINE SOLUTION AND DRAPED ASEPTICALLY. THE PROCEDURE WAS DONE UNDER STERILE CONDITIONS. I CHECKED LATERALITY AND THE LEVEL WHERE THE PROCEDURE WAS GOING TO BE PERFORMED WITH THE PATIENT AND THE SUPPORTING STAFF AT THE MOMENT OF THE TIME OUT IN THE PROCEDURE ROOM. UNDER FLUOROSCOPIC GUIDANCE, THE TARGET POINT WAS SELECTED AT THE INTERLAMINAR LEVEL OF L3-L4. LIDOCAINE WAS USED TO NUMB THE SKIN AND THE SUBCUTANEOUS TISSUE BELOW IT. EPIDURAL TUOHY NEEDLE, 17-GAUGE, WAS ADVANCED UNDER FLUOROSCOPIC GUIDANCE AND FOLLOWING PATIENT FEEDBACK UNTIL THE EPIDURAL SPACE WAS REACHED, 7 CM DEEP INTO THE SKIN BY THE LOSS OF RESISTANCE TECHNIQUE. ISOVUE M DYE 30%, 0.25 ML, WAS INJECTED SHOWING ADEQUATE SPREAD OF THE DYE. THEN, A SOLUTION OF 3 ML OF NORMAL SALINE WITH DEPO-MEDROL 60 MG WAS INJECTED SLOWLY FOLLOWING PATIENT FEEDBACK. THERE WAS NO EVIDENCE OF BLOOD, PARESTHESIA OR CEREBROSPINAL FLUID DURING THE PROCEDURE. THE PATIENT WAS SENT TO THE RECOVERY ROOM. THE PATIENT WAS MOVING THE EXTREMITIES AND DOING WELL. THERE WAS NO COMPLICATION DURING THE PROCEDURE. FLUOROSCOPY TIME WAS 12 SECONDS. POST PROCEDURE NOTE THE PATIENT WILL BE SEEN IN A FOLLOW UP IN THE NEXT FEW WEEKS. INSTRUCTIONS WERE GIVEN, QUESTIONS WERE ANSWERED, AND THE PATIENT EXPRESSED UNDERSTANDING AND AGREES WITH THE PLAN. I, RADHIKA PAK, DOCUMENTED THE ABOVE INFORMATION ACTING A SCRIBE FOR DR. MCCOY. I HAVE REVIEWED THE ABOVE DOCUMENT, WRITTEN BY RADHIKA WHITFIELD AND I VERIFY THAT IT IS ACCURATE. PROCEDURE CODES 35599 LUMBAR/SACRAL W/ IMAGING 6045F RADXPS IN END [id number] PXD DISPOSITION & COMMUNICATION FOLLOW UP 2 WEEKS ELECTRONICALLY SIGNED BY PATRICIA MCCOY MD, MD ON 08/29/2019 AT 07:37 AM EDT DISCLAIMER : THIS IS A VISIT SUMMARY EXTRACTED FROM THE [employer] CHART. IT IS NOT A COPY OF THE [employer] PROGRESS NOTE. MTDD
== END ==
LOC: M PAIN 09:00
PROVIDERS: ATTEND Anesthesiology
DX: M51.16 Intervertebral disc disorders with radiculopathy, lumbar region (principal); K21.9 Gastro-esophageal reflux disease without esophagitis; F17.210 Nicotine dependence, cigarettes, uncomplicated; Z96.651 Presence of right artificial knee joint; Z79.899 Other long term (current) drug therapy; Z88.0 Allergy status to penicillin; Z91.030 Bee allergy status
CPT/HCPCS: 62323; J1030; Q9967

== ENCOUNTER → 2019-09-09 | Outpatient (REF) | payer OTHER ==
[2019-09-09 14:23] LABS: FREE T4 0.85 NG/DL (0.76-1.46); RHEUMATOID FACTOR QUANT < 10.0 IU/ML (<15.0); TOTAL PROTEIN 6.8 GM/DL (6.4-8.2)
[2019-09-09 14:24] LABS: VITAMIN B12 LEVEL 224 PG/ML
[2019-09-09 14:25] LABS: FOLATE 14.4 NG/ML
[2019-09-09 14:34] LABS: HEMOGLOBIN A1c 6.2 %
[2019-09-10 09:41] LABS: ALBUMIN 4.13 GM/DL (3.29-5.55); ALBUMIN % 60.8 % (55.8-66.1); ALPHA-1-GLOBULINS 0.27 GM/DL (0.17-0.41); ALPHA-2-GLOBULINS % 11.7 % (7.1-11.8); BETA-1-GLOBULINS 0.44 GM/DL (0.28-0.60); BETA-1-GLOBULINS % 6.5 % (4.7-7.2); BETA-2-GLOBULINS 0.39 GM/DL (0.19-0.55); BETA-2-GLOBULINS % 5.8 % (3.2-6.5); GAMMA GLOBULINS 0.76 GM/DL (0.65-1.58)
[2019-09-10 09:42] LABS: GAMMA GLOBULIN % 11.2 % (11.1-18.8)
== END ==
LOC: M LABNEURO 10:47
PROVIDERS: ATTEND Psychiatry & Neurology Neurology
DX: G89.29 Other chronic pain (principal); M54.5 Low back pain; G62.9 Polyneuropathy, unspecified

== ENCOUNTER → 2019-09-14 | Outpatient (CLI) | payer OTHER ==
--- NOTE | 2019-09-30 03:24 | ECWPNPC ---
PATIENT NAME: VIRIDIANA CASTANEDA : 1965 GENDER: MALE VISIT DATE: 09/14/2019 DISCHARGE DATE: 09/14/19 0950 VISIT LOCKED DATE TIME: PHYSICIAN: DAVIAN BAKER RESOURCE: DAVIAN BAKER REASON FOR APPOINTMENT 1. POST PROC HISTORY OF PRESENT ILLNESS HISTORY OF PRESENT ILLNESS: HERE FOR F/U OF CHRONIC RIGHT LBP.HAD L3/4 LESI ON 08/25/19.REPORTING NO IMPROVEMENT POST PROCEDURE.COMPLAINING OF SEVERE RIGHT LOW BACK PAIN THAT RADIATES INTO RIGHT LEG.PAIN IS AGGREVATED WITH GETTING IN AND OUT OF CARS OR WALKING.RATING PAIN VAS 9/10.REVIEWED MRI AND DISCUSSED TREATMENT OPTIONS. PAIN THE PATIENT DESCRIBES THE PAIN... FALL RISK SCREENING: SCREENING :NO FALLS REPORTED IN THE LAST YEAR CURRENT MEDICATIONS TAKING NEXIUM 40 MG CAPSULE DELAYED RELEASE 1 CAPSULE ORALLY ONCE A DAY TAKING GLUCOMETER DIRECTED CHECK SUGAR DAILY TAKING BLOOD GLUCOSE TEST - STRIP DIRECTED IN VITRO DAILY ON SIDE OF FINGER. DX: E11.9 TAKING LANCETS - MISCELLANEOUS DIRECTED ON SIDE OF FINGER DAILY BEFORE BREAKFAST. DX: E11.9 TAKING NITROGLYCERIN 0.4 MG TABLET SUBLINGUAL DIRECTED SUBLINGUAL DAILY, NOTES: NEVER TAKEN TAKING FLONASE ALLERGY RELIEF 50 MCG/ACT SUSPENSION 1 SPRAY IN EACH NOSTRIL NASALLY ONCE A DAY TAKING ADRENACLICK 0.3 MG/0.3ML SOLUTION AUTO-INJECTOR DIRECTED INJECTION AT ONSET OF BEE STING AND THEN PROCEED TO ER FOR MONITORING, NOTES: KEEP ONE AT HOME AND ONE IN THE CAR. TAKING GABAPENTIN 300 MG CAPSULE 2CAPSULE ORALLY THREE TIMES DAILY TAKING CYCLOBENZAPRINE HCL 10 MG TABLET 1 TAB ORALLY THREE TIMES DAILY NEEDED TAKING NAPROXEN 500 MG TABLET 1 TABLET WITH FOOD OR MILK NEEDED ORALLY EVERY 12 HRS MEDICATION LIST REVIEWED AND RECONCILED WITH THE PATIENT PAST MEDICAL HISTORY GERD ALLERGIES PENICILLIN (FOR ALLERGIES USE ONLY): HIVES - ALLERGY BEE STINGS : ANAPHYLAXIS - ALLERGY SURGICAL HISTORY [facility] FAMILY HISTORY FATHER: 75 YRS MOTHER: ALIVE 75 YRS BROTHER: ALIVE 51 YRS, UNKNOWN SISTER: ALIVE 53 YRS, HEALTHY 1 BROTHER(S) , 3 SISTER(S) . 2DAUGHTER(S) - HEALTHY. SOCIAL HISTORY GENERAL: TOBACCO USE ARE YOU A:CURRENT SMOKER ARE YOU INTERESTED IN QUITTING?READY TO QUIT CUTTING DOWN PREVIOUS QUIT ATTEMPTS?YES, MORE THAN 6 MONTHS AGO. COUNSELED THE PATIENT ON TOBACCO USE, CESSATION [id number]/16/2019 HOW MANY CIGARETTES A DAY DO YOU SMOKE?21-30 HOW SOON AFTER YOU WAKE UP DO YOU SMOKE YOUR FIRST CIGARETTE?6-30 MIN HOW OFTEN DO YOU SMOKE CIGARETTES?EVERY DAY PATIENT COUNSELED ON THE DANGERS OF TOBACCO USE AND URGED TO QUIT:09/14/2019 HIV / HEP-C SCREENING HIV TEST OFFERED TO PATIENT:YES DATE OFFERED:10/08/2016 TEST ACCEPTED:YES HEP-C TEST OFFERED TO PATIENT:YES DATE OFFERED:10/08/2016 TEST ACCEPTED:YES EDUCATION COLLEGE. DIET: REGULAR. LANGUAGE HEBREW. DOMESTIC VIOLENCE DO YOU FEEL SAFE IN YOUR ENVIRONMENT?YES BMI CARE GOAL FOLLOW-UP ABOVE NORMAL BMI FOLLOW-UPEXERCISE PROMOTION: STRETCHING RECREATIONAL DRUG USE DRUG USE?NO EXERCISE: NO REGULAR EXERCISE. LEARNING BARRIERS / SPECIAL NEEDS CHANGE FROM LAST VISIT?NO BARRIERS TO LEARNING?NO HEARING IMPAIRED?NO VISION IMPAIRED?YES COGNITIVELY IMPAIRED?NO :CORRECTIVE LENSES READING READINESS TO LEARN?YES LEARNING PREFERENCES?YES :DEMONSTRATION/VERBAL INSTRUCTION LEARNING CAPABILITIES PRESENT?YES EMOTIONAL BARRIERS?NO SPECIAL DEVICES?NO MACHINIST MATE NEEDED?NO PAIN CLINIC PFS, CLERGY, PUBLIC HEALTH REFERRALS HAS THE PATIENT BEEN EDUCATED REGARDING HIS/HER PLAN OF CARE?YES HAS THE PATIENT BEEN EDUCATED REGARDING PAIN, THE RISK FOR PAIN, THE IMPORTANCE OF EFFECTIVE PAIN MANAGEMENT, AND THE PAIN ASSESSMENT PROCESS?YES LATEX QUESTIONNAIRE LATEX ALLERGY : HAVE YOU EVER DEVELOPED ANY TYPE OF REACTION AFTER HANDLING LATEX PRODUCTS SUCH RUBBER GLOVES, CONDOMS, DIAPHRAGMS, BALLOONS, SOCKS, OR UNDERWEAR?NO LATEX ALLERGY : HAVE YOU EVER DEVELOPED ANY TYPE OF REACTION DURING OR AFTER DENTAL APPOINTMENT, VAGINAL/RECTAL EXAMINATION, SURGICAL PROCEDURE, OR ANY OTHER EXPOSURE?NO LATEX RISK : HAVE YOU EVER HAD ANY DIFFICULTY BREATHING OR HIVES AFTER EATING OR HANDLING ANY FRUITS, OR VEGETABLES; SUCH KIWI, BANANAS, STONE FRUITS, OR CHESTNUTSNO LATEX RISK : DO YOU HAVE A PREVIOUS PERSONAL HISTORY OF MORE THAN NINE SURGERIES, SPINA BIFIDA, OR REPEATED CATHERIZATIONS? NO LATEX RISK : ARE YOU FREQUENTLY EXPOSED TO LATEX PRODUCTS IN YOUR OCCUPATION?YES DATE ASKED : 04/08/2019 CAFFEINE CAFFEINE USE?NO ADVANCE DIRECTIVE ADVANCE DIRECTIVE DISCUSSED WITH PATIENT:YES DECLINED INFORMATION OR ASSISTANCE AT THIS TIME YARSANISM NO CONFUCIANISM BELIEFS THAT WOULD IMPACT HEALTH CARE. MARITAL STATUS: . 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 SEXUAL HX HAD SEX IN THE LAST 12 MONTHS (VAGINAL, ORAL, OR ANAL)?YES WITHWOMEN ONLY PREVENTION STRATEGIES DISCUSSED:OTHER USE PROTECTION?NO HAVE YOU EVER HAD AN STD?NO REVIEWED WITH PATIENT 09/14/19 0921 JS. HOSPITALIZATION/MAJOR DIAGNOSTIC PROCEDURE NO HOSPITALIZATION HISTORY. REVIEW OF SYSTEMS REVIEWED BY: PROVIDER: DAVIAN LYON . CONSTITUTIONAL: ANY CHANGE IN YOUR MEDICAL CONDITION? NO . CHILLS NO . FEVER NO . INFECTION: DO YOU HAVE NEW INFECTIONS? NO . DO YOU HAVE HISTORY OF MRSA? NO . MUSCULOSKELETAL: ANY NEW PATTERNS OF PAIN OR NUMBNESS? NO . GASTROENTEROLOGY: ANY NEW CHANGE IN BOWEL CONTROL? NO . GENITOURINARY: ANY NEW CHANGE IN BLADDER CONTROL? YES, STATES URINARY URGENCY FOR THE PAST FEW WEEKS . IS THERE A CHANCE YOU COULD BE ? NO . HEMATOLOGY/LYMPH: DO YOU TAKE ANY BLOOD THINNERS? (FOR EXAMPLE- COUMADIN, PLAVIX, AGGRENOX, PLATEL, PRADAXA, OR XARELTO) NO . WHEN WAS YOUR LAST DOSE? DATE: TIME: . NEUROLOGY: HAVE YOU FALLEN IN THE PAST 12 MONTHS? NO . ANY NEW EXTREMITY NUMBNESS OR WEAKNESS? NO . CARDIOLOGY: DO YOU HAVE A PACEMAKER OR DEFIBRILLATOR? NO . RESPIRATORY: HAVE YOU BEEN SICK IN THE PAST WEEK? NO . FEVER NO . FLU LIKE SYMPTOMS? NO . COUGH NO . INTEGUMENTARY: DO YOU HAVE ANY RASHES OR OPEN SORES? NO . ALLERGIC/IMMUNO: ARE YOU ALLERGIC TO IV DYE? NO . ANY NEW ALLERGIES? NO . PSYCHIATRIC: DO YOU HAVE THOUGHTS OF HURTING YOURSELF OR SOMEONE ELSE? NO . ARE YOU ABUSED, NEGLECTED, OR IN AN UNSAFE ENVIRONMENT? NO . ENDOCRINOLOGY: ARE YOU DIABETIC? NO . OTHER: DO YOU NEED ANY PRESCRIPTIONS? NO . IF YES, PLEASE LIST: ____ . ANY NEW PROBLEMS WITH YOUR MEDICATIONS? NO . WHEN DID YOU LAST EAT? ____ . WHEN DID YOU LAST DRINK? ____ . WHAT DID YOU LAST DRINK? ____ . NAME OF PERSON DRIVING YOU HOME? ____ . DO YOU HAVE ANY OTHER QUESTIONS OR CONCERNS NO . VITAL SIGNS WT 247.6 LBS, HT 67 IN, BMI 38.78 INDEX, BP 132/84 MM HG, HR 91 /MIN, RR 18 /MIN, TEMP 96.9 F, OXYGEN SAT % 98%, SAFE IN ENV? (Y/N) YES, NA INITIALS OK 09:06, REVIEWED BY: DESTINY. EXAMINATION GENERAL EXAMINATION: GENERAL ALERT,NO DISTRESS . PSYCH AFFECT NORMAL . LUNGS: LUNG SOUNDS ARE CLEAR . HEART: HEART RATE REGULAR . MUSCULOSKELETAL: MST 5/5 BILAT. LOWER EXTREMITIES . LUMBAR SACRAL SPINE TENDERNESS RIGHT SIJ . DIAGNOSTIC TESTS REVIEWEDMRI L/S SPINE-06/13/19. ASSESSMENTS SACROILIITIS - M46.1 (PRIMARY) TREATMENT SACROILIITIS NOTES: RIGHT SIJ. OTHERS NOTES: SACROILIAC JOINT PAIN MATERIAL WAS PRINTED. PREVENTIVE MEDICINE PAIN CLINIC TEACHING: PROCEDURE TEACHING PRINTED AND REVIEWED INFORMATION ON SACROILIAC JOINT INJECTION WITH PATIENT. ALSO REVIEWED PRE-PROCEDURE INSTRUCTIONS. PATIENT VERBALIZED AN UNDERSTANDING. MERA MCELROY 09/14/2019 11:59:28 AM > . PROCEDURE CODES FA211 ESTABILISHED PATIENT [facility] CHARGE DISPOSITION & COMMUNICATION FOLLOW UP POST (REASON: RIGHT SIJ) ELECTRONICALLY SIGNED BY SONALI AVELAR ON 09/29/2019 AT 09:00 AM EST DISCLAIMER : THIS IS A VISIT SUMMARY EXTRACTED FROM THE [employer] CHART. IT IS NOT A COPY OF THE [employer] PROGRESS NOTE. CURTIS
== END ==
LOC: M PAIN 08:45
PROVIDERS: ATTEND Nurse Practitioner Family
DX: M46.1 Sacroiliitis, not elsewhere classified (principal)

== ENCOUNTER → 2019-11-09 | Outpatient (CLI) | payer OTHER ==
[~2019-11-09] MED LIST changes: +BUPIVACAINE HCL 0.25% 30 ML VIAL As Ordered ONE; +TRIAMCINOLONE ACETONIDE SUSP 40 MG/ML VIAL (J3301) As Ordered ONE; -methylPREDNISolone SUSP 40 MG/ML (DEPO-medrol) VIAL (J1030) As Ordered ONE
--- NOTE | 2019-11-09 14:04 | REP ---
Right SI joint series: Three views. History: SI joint injection for pain. 26 seconds of fluoroscopy time is reported. Findings: A sequence of three last image hold fluoroscopically obtained spot radiographs of the right SI joint document needle position and contrast injection associated with injection procedure. Electronically Signed by Babak Bolton MD 11/09/2019 01:55 P
--- NOTE | 2019-11-18 04:33 | ECWPNPC ---
PATIENT NAME: VIRIDIANA CASTANEDA : 1965 GENDER: MALE VISIT DATE: 11/09/2019 DISCHARGE DATE: 11/09/19 1319 VISIT LOCKED DATE TIME: PHYSICIAN: PATRICIA MCCOY MD RESOURCE: PATRICIA MCCOY MD REASON FOR APPOINTMENT 1. RIGHT SIJ HISTORY OF PRESENT ILLNESS HISTORY OF PRESENT ILLNESS: PAIN THE PATIENT DESCRIBES THE PAIN... FALL RISK SCREENING: SCREENING :NO FALLS REPORTED IN THE LAST YEAR CURRENT MEDICATIONS TAKING NEXIUM 40 MG CAPSULE DELAYED RELEASE 1 CAPSULE ORALLY ONCE A DAY, NOTES: 11/09/19 0730 TAKING GLUCOMETER DIRECTED CHECK SUGAR DAILY TAKING BLOOD GLUCOSE TEST - STRIP DIRECTED IN VITRO DAILY ON SIDE OF FINGER. DX: E11.9 TAKING LANCETS - MISCELLANEOUS DIRECTED ON SIDE OF FINGER DAILY BEFORE BREAKFAST. DX: E11.9 TAKING NITROGLYCERIN 0.4 MG TABLET SUBLINGUAL DIRECTED SUBLINGUAL DAILY, NOTES: NEVER TAKEN TAKING FLONASE ALLERGY RELIEF 50 MCG/ACT SUSPENSION 1 SPRAY IN EACH NOSTRIL NASALLY ONCE A DAY, NOTES: A FEW DAYS AGO TAKING ADRENACLICK 0.3 MG/0.3ML SOLUTION AUTO-INJECTOR DIRECTED INJECTION AT ONSET OF BEE STING AND THEN PROCEED TO ER FOR MONITORING, NOTES: KEEP ONE AT HOME AND ONE IN THE CAR. TAKING CYCLOBENZAPRINE HCL 10 MG TABLET 1 TAB ORALLY THREE TIMES DAILY NEEDED, NOTES: 11/08/19 AFTERNOON TAKING NAPROXEN 500 MG TABLET 1 TABLET WITH FOOD OR MILK NEEDED ORALLY EVERY 12 HRS, NOTES: 11/08/19 AFTERNOON TAKING GABAPENTIN 300 MG CAPSULE 2 CAPSULE ORALLY THREE TIMES DAILY, NOTES: 11/08/19 AFTERNOON PAST MEDICAL HISTORY GERD ALLERGIES PENICILLIN (FOR ALLERGIES USE ONLY): HIVES - ALLERGY BEE STINGS : ANAPHYLAXIS - ALLERGY SURGICAL HISTORY LEFT INGUINAL HERNIA REPAIR FROM [place] 1999 RIGHT KNEE ARTHROPLASTY 2001 FAMILY HISTORY FATHER: 75 YRS MOTHER: ALIVE 75 YRS BROTHER: ALIVE 51 YRS, UNKNOWN SISTER: ALIVE 53 YRS, HEALTHY 1 BROTHER(S) , 3 SISTER(S) . 2DAUGHTER(S) - HEALTHY. SOCIAL HISTORY GENERAL: TOBACCO USE ARE YOU A:CURRENT SMOKER ARE YOU INTERESTED IN QUITTING?READY TO QUIT CUTTING DOWN PREVIOUS QUIT ATTEMPTS?YES, MORE THAN 6 MONTHS AGO. COUNSELED THE PATIENT ON TOBACCO USE, CESSATION [id number]/16/2019 HOW MANY CIGARETTES A DAY DO YOU SMOKE?21-30 HOW SOON AFTER YOU WAKE UP DO YOU SMOKE YOUR FIRST CIGARETTE?6-30 MIN HOW OFTEN DO YOU SMOKE CIGARETTES?EVERY DAY PATIENT COUNSELED ON THE DANGERS OF TOBACCO USE AND URGED TO QUIT:09/14/2019 SMOKING CESSATION INFORMATION GIVEN11/02/2019 HIV / HEP-C SCREENING HIV TEST OFFERED TO PATIENT:YES DATE OFFERED:10/08/2016 TEST ACCEPTED:YES HEP-C TEST OFFERED TO PATIENT:YES DATE OFFERED:10/08/2016 TEST ACCEPTED:YES EDUCATION COLLEGE. DIET: REGULAR. LANGUAGE SCOTTISH. DOMESTIC VIOLENCE DO YOU FEEL SAFE IN YOUR ENVIRONMENT?YES BMI CARE GOAL FOLLOW-UP ABOVE NORMAL BMI FOLLOW-UPEXERCISE PROMOTION: STRETCHING RECREATIONAL DRUG USE DRUG USE?NO EXERCISE: NO REGULAR EXERCISE. LEARNING BARRIERS / SPECIAL NEEDS CHANGE FROM LAST VISIT?NO BARRIERS TO LEARNING?NO HEARING IMPAIRED?NO VISION IMPAIRED?YES COGNITIVELY IMPAIRED?NO :CORRECTIVE LENSES READING READINESS TO LEARN?YES LEARNING PREFERENCES?YES :DEMONSTRATION/VERBAL INSTRUCTION LEARNING CAPABILITIES PRESENT?YES EMOTIONAL BARRIERS?NO SPECIAL DEVICES?NO FIRE CHIEF DEPUTY NEEDED?NO PAIN CLINIC PFS, CLERGY, PUBLIC HEALTH REFERRALS HAS THE PATIENT BEEN EDUCATED REGARDING HIS/HER PLAN OF CARE?YES HAS THE PATIENT BEEN EDUCATED REGARDING PAIN, THE RISK FOR PAIN, THE IMPORTANCE OF EFFECTIVE PAIN MANAGEMENT, AND THE PAIN ASSESSMENT PROCESS?YES LATEX QUESTIONNAIRE LATEX ALLERGY : HAVE YOU EVER DEVELOPED ANY TYPE OF REACTION AFTER HANDLING LATEX PRODUCTS SUCH RUBBER GLOVES, CONDOMS, DIAPHRAGMS, BALLOONS, SOCKS, OR UNDERWEAR?NO LATEX ALLERGY : HAVE YOU EVER DEVELOPED ANY TYPE OF REACTION DURING OR AFTER DENTAL APPOINTMENT, VAGINAL/RECTAL EXAMINATION, SURGICAL PROCEDURE, OR ANY OTHER EXPOSURE?NO LATEX RISK : HAVE YOU EVER HAD ANY DIFFICULTY BREATHING OR HIVES AFTER EATING OR HANDLING ANY FRUITS, OR VEGETABLES; SUCH KIWI, BANANAS, STONE FRUITS, OR CHESTNUTSNO LATEX RISK : DO YOU HAVE A PREVIOUS PERSONAL HISTORY OF MORE THAN NINE SURGERIES, SPINA BIFIDA, OR REPEATED CATHERIZATIONS? NO LATEX RISK : ARE YOU FREQUENTLY EXPOSED TO LATEX PRODUCTS IN YOUR OCCUPATION?YES DATE ASKED : 04/08/2019 CAFFEINE CAFFEINE USE?NO ADVANCE DIRECTIVE ADVANCE DIRECTIVE DISCUSSED WITH PATIENT:YES DECLINED INFORMATION OR ASSISTANCE AT THIS TIME AGAIN OFFERED PRINTED MATERIAL SCIENTOLOGIST NO SPIRITISM BELIEFS THAT WOULD IMPACT HEALTH CARE. MARITAL STATUS: . 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 SEXUAL HX HAD SEX IN THE LAST 12 MONTHS (VAGINAL, ORAL, OR ANAL)?YES WITHWOMEN ONLY PREVENTION STRATEGIES DISCUSSED:OTHER USE PROTECTION?NO HAVE YOU EVER HAD AN STD?NO REVIEWED WITH PATIENT 09/14/19 0921 [id number] PREADMISSION COMPLETED FOR 11-09-19 PROCEDURE KEG. HOSPITALIZATION/MAJOR DIAGNOSTIC PROCEDURE NO HOSPITALIZATION HISTORY. REVIEW OF SYSTEMS REVIEWED BY: PROVIDER: . CONSTITUTIONAL: ANY CHANGE IN YOUR MEDICAL CONDITION? NO . CHILLS NO . FEVER NO . INFECTION: DO YOU HAVE NEW INFECTIONS? NO . DO YOU HAVE HISTORY OF MRSA? NO . MUSCULOSKELETAL: ANY NEW PATTERNS OF PAIN OR NUMBNESS? NO . GASTROENTEROLOGY: ANY NEW CHANGE IN BOWEL CONTROL? NO . GENITOURINARY: ANY NEW CHANGE IN BLADDER CONTROL? NO . IS THERE A CHANCE YOU COULD BE ? NO . HEMATOLOGY/LYMPH: DO YOU TAKE ANY BLOOD THINNERS? (FOR EXAMPLE- COUMADIN, PLAVIX, AGGRENOX, PLATEL, PRADAXA, OR XARELTO) NO . WHEN WAS YOUR LAST DOSE? DATE: TIME: . NEUROLOGY: HAVE YOU FALLEN IN THE PAST 12 MONTHS? NO . ANY NEW EXTREMITY NUMBNESS OR WEAKNESS? NO . CARDIOLOGY: DO YOU HAVE A PACEMAKER OR DEFIBRILLATOR? NO . RESPIRATORY: HAVE YOU BEEN SICK IN THE PAST WEEK? NO . FEVER NO . FLU LIKE SYMPTOMS? NO . COUGH NO . INTEGUMENTARY: DO YOU HAVE ANY RASHES OR OPEN SORES? NO . ALLERGIC/IMMUNO: ARE YOU ALLERGIC TO IV DYE? NO . ANY NEW ALLERGIES? NO . PSYCHIATRIC: DO YOU HAVE THOUGHTS OF HURTING YOURSELF OR SOMEONE ELSE? NO . ARE YOU ABUSED, NEGLECTED, OR IN AN UNSAFE ENVIRONMENT? NO . ENDOCRINOLOGY: ARE YOU DIABETIC? NO . OTHER: DO YOU NEED ANY PRESCRIPTIONS? NO . IF YES, PLEASE LIST: ____ . ANY NEW PROBLEMS WITH YOUR MEDICATIONS? NO . WHEN DID YOU LAST EAT? 11/08/192199 . WHEN DID YOU LAST DRINK? 11/08/192199 . WHAT DID YOU LAST DRINK? ____ . NAME OF PERSON DRIVING YOU HOME? ELVIA- . DO YOU HAVE ANY OTHER QUESTIONS OR CONCERNS NO . VITAL SIGNS WT 256.8 LBS, HT 67 IN, BMI 40.22 INDEX, BP 141/89 MM HG, HR 89 /MIN, RR 18 /MIN, TEMP 98.5 F, OXYGEN SAT % 97%, SAFE IN ENV? (Y/N) YES, NA INITIALS AW 1105, REVIEWED BY: AZRA. ASSESSMENTS SACROILIITIS - M46.1 (PRIMARY) TREATMENT SACROILIITIS [facility] FLUORO GUIDANCE (PAIN)[id number] PROCEDURES PN SI PRE PROCEDURE DIAGNOSIS SACROILIITIS, SACROILIAC JOINT DYSFUNCTION POST PROCEDURE DIAGNOSIS SACROILIITIS, SACROILIAC JOINT DYSFUNCTION PROCEDURE RIGHT SACROILIAC JOINT BLOCK SURGEON DR. PATRICIA MCCOY DISTILLERY MILLER HELPER NONE ANESTHESIA LOCAL PRE PROCEDURE NOTE PATIENT WITH HISTORY OF CHRONIC LOW BACK PAIN. I EVALUATED THE PATIENT AND REVIEWED THE CHART. I WENT OVER THE RISKS, ALTERNATIVES, AND BENEFITS ASSOCIATED WITH THIS PROCEDURE. THE PATIENT WOULD LIKE TO PROCEED AND GAVE CONSENT TO PERFORM THE PROCEDURE. THE PATIENT DENIES UNEXPLAINABLE WEIGHT LOSS, FEVER, CHILLS, OR NEW CHANGES IN URINARY OR BOWEL CONTROL DESCRIPTION OF PROCEDURE THE PATIENT WAS BROUGHT TO THE PROCEDURE ROOM AND PLACED IN THE PRONE POSITION. THE LUMBOSACRAL AREA WAS CLEANED WITH CHLORAPREP SOLUTION AND DRAPED ASEPTICALLY. THE PROCEDURE WAS DONE UNDER STERILE CONDITIONS. I CHECKED LATERALITY AND THE LEVEL WHERE THE PROCEDURE WAS GOING TO BE PERFORMED WITH THE PATIENT AND THE SUPPORTING STAFF AT THE MOMENT OF THE TIME OUT IN THE PROCEDURE ROOM. UNDER FLUOROSCOPIC GUIDANCE, TARGET POINT WAS SELECTED AT THE LOWER BORDER OF THE RIGHT SACROILIAC JOINT. TARGET POINT WAS SELECTED AFTER MEDIAL ROTATION AND TILT OF THE MAGNIFIER OF THE C-ARM. LIDOCAINE WAS USED TO NUMB THE SKIN AND SUBCUTANEOUS TISSUE BELOW IT. A SPINAL NEEDLE, 22-GAUGE, WAS ADVANCED UNDER FLUOROSCOPIC GUIDANCE AND FOLLOWING PATIENT FEEDBACK UNTIL THE TARGET AREA WAS TOUCHED. THE POSITION OF THE NEEDLE WAS VERIFIED WITH AP AND LATERAL VIEWS. AFTER PROPER POSITION OF THE NEEDLE WAS ACHIEVED, ISOVUE M DYE 30%, 0.25 ML, WAS INJECTED SHOWING SPREAD OF THE DYE. THEN, A SOLUTION OF 40 MG OF KENALOG WAS INJECTED IN RIGHT JOINT WITH 3 ML OF BUPIVACAINE 0.125%. THERE WAS NO EVIDENCE OF BLOOD, PARESTHESIA OR CEREBROSPINAL FLUID DURING THE PROCEDURE. THE PATIENT WAS SENT TO THE RECOVERY ROOM. THE PATIENT WAS MOVING THE EXTREMITIES AND DOING WELL. THERE WAS NO COMPLICATION DURING THE PROCEDURE. FLUOROSCOPY TIME WAS 26 SECONDS POST PROCEDURE NOTE THE PATIENT WILL BE SEEN IN A FOLLOW UP IN THE NEXT FEW WEEKS. I AM LOOKING FOR LONG-LASTING PAIN RELIEF WITH THIS INJECTION. INSTRUCTIONS WERE GIVEN, QUESTIONS WERE ANSWERED, AND THE PATIENT EXPRESSED UNDERSTANDING AND AGREED WITH THE PLAN. I, JAIDA MCCONNELL, DOCUMENTED THE ABOVE INFORMATION ACTING A SCRIBE FOR DR. MCCOY. I HAVE REVIEWED THE ABOVE DOCUMENT, WRITTEN BY JAIDA WHITFIELD AND I VERIFY THAT IT IS ACCURATE. PROCEDURE CODES 81925 INJECT SACROILIAC JOINT, MODIFIERS: RT [id number] RADXPS IN END [id number] PXD DISPOSITION & COMMUNICATION FOLLOW UP 3 WEEKS ELECTRONICALLY SIGNED BY PATRICIA MCCOY MD, MD ON 11/17/2019 AT 09:22 AM EST DISCLAIMER : THIS IS A VISIT SUMMARY EXTRACTED FROM THE [employer] CHART. IT IS NOT A COPY OF THE [employer] PROGRESS NOTE. CURTIS
== END ==
LOC: M PAIN 11:00
PROVIDERS: ATTEND Anesthesiology
DX: M46.1 Sacroiliitis, not elsewhere classified (principal); K21.9 Gastro-esophageal reflux disease without esophagitis; F17.210 Nicotine dependence, cigarettes, uncomplicated; Z88.0 Allergy status to penicillin; Z91.030 Bee allergy status; Z79.899 Other long term (current) drug therapy
CPT/HCPCS: 27096; J3301; Q9967

== ENCOUNTER → 2019-11-23 | Outpatient (CLI) | payer OTHER ==
--- NOTE | 2019-12-09 04:31 | ECWPNPC ---
PATIENT NAME: VIRIDIANA CASTANEDA : 1965 GENDER: MALE VISIT DATE: 11/23/2019 DISCHARGE DATE: 11/23/19 0956 VISIT LOCKED DATE TIME: PHYSICIAN: DAVIAN BAKER RESOURCE: DAVIAN BAKER REASON FOR APPOINTMENT 1. POST SIJ HISTORY OF PRESENT ILLNESS HISTORY OF PRESENT ILLNESS: HERE FOR POST PROCEDURE F/U.HAD RIGHT SIJ ON 11/09/19.REPORTING IMPROVEMENT POST PROCEDURE.REPORTING LESS INTENSE RIGHT LOW BACK PAIN. COMPLAINING OF LOW BACK PAIN THAT RADIATESINTO LEGS WITH WALKING.RATING PAIN VAS 7/10.REVIEWED MRI AND DISCUSSED TREATMENT OPTIONS. DISCUSSED RADIOFREQUENCY AND LUMBAR FACET DIAGNOSTIC TESTING. PAIN THE PATIENT DESCRIBES THE PAIN... FALL RISK SCREENING: SCREENING :NO FALLS REPORTED IN THE LAST YEAR CURRENT MEDICATIONS TAKING NEXIUM 40 MG CAPSULE DELAYED RELEASE 1 CAPSULE ORALLY ONCE A DAY TAKING GLUCOMETER DIRECTED CHECK SUGAR DAILY TAKING BLOOD GLUCOSE TEST - STRIP DIRECTED IN VITRO DAILY ON SIDE OF FINGER. DX: E11.9 TAKING LANCETS - MISCELLANEOUS DIRECTED ON SIDE OF FINGER DAILY BEFORE BREAKFAST. DX: E11.9 TAKING NITROGLYCERIN 0.4 MG TABLET SUBLINGUAL DIRECTED SUBLINGUAL DAILY, NOTES: NEVER TAKEN TAKING FLONASE ALLERGY RELIEF 50 MCG/ACT SUSPENSION 1 SPRAY IN EACH NOSTRIL NASALLY ONCE A DAY TAKING ADRENACLICK 0.3 MG/0.3ML SOLUTION AUTO-INJECTOR DIRECTED INJECTION AT ONSET OF BEE STING AND THEN PROCEED TO ER FOR MONITORING, NOTES: KEEP ONE AT HOME AND ONE IN THE CAR. TAKING CYCLOBENZAPRINE HCL 10 MG TABLET 1 TAB ORALLY THREE TIMES DAILY NEEDED TAKING NAPROXEN 500 MG TABLET 1 TABLET WITH FOOD OR MILK NEEDED ORALLY EVERY 12 HRS TAKING GABAPENTIN 300 MG CAPSULE 2 CAPSULE ORALLY THREE TIMES DAILY MEDICATION LIST REVIEWED AND RECONCILED WITH THE PATIENT PAST MEDICAL HISTORY GERD ALLERGIES PENICILLIN (FOR ALLERGIES USE ONLY): HIVES - ALLERGY BEE STINGS : ANAPHYLAXIS - ALLERGY SURGICAL HISTORY LEFT INGUINAL HERNIA REPAIR FROM [place] 1999 RIGHT KNEE ARTHROPLASTY 2001 FAMILY HISTORY FATHER: 75 YRS MOTHER: ALIVE 75 YRS BROTHER: ALIVE 51 YRS, UNKNOWN SISTER: ALIVE 53 YRS, HEALTHY 1 BROTHER(S) , 3 SISTER(S) . 2DAUGHTER(S) - HEALTHY. SOCIAL HISTORY GENERAL: TOBACCO USE ARE YOU A:CURRENT SMOKER ARE YOU INTERESTED IN QUITTING?READY TO QUIT CUTTING DOWN PREVIOUS QUIT ATTEMPTS?YES, MORE THAN 6 MONTHS AGO. COUNSELED THE PATIENT ON TOBACCO USE, CESSATION [id number]/20/2020 HOW MANY CIGARETTES A DAY DO YOU SMOKE?21-30 HOW SOON AFTER YOU WAKE UP DO YOU SMOKE YOUR FIRST CIGARETTE?6-30 MIN HOW OFTEN DO YOU SMOKE CIGARETTES?EVERY DAY PATIENT COUNSELED ON THE DANGERS OF TOBACCO USE AND URGED TO QUIT:11/23/2019 SMOKING CESSATION INFORMATION GIVEN11/02/2019 HIV / HEP-C SCREENING HIV TEST OFFERED TO PATIENT:YES DATE OFFERED:10/08/2016 TEST ACCEPTED:YES HEP-C TEST OFFERED TO PATIENT:YES DATE OFFERED:10/08/2016 TEST ACCEPTED:YES EDUCATION COLLEGE. DIET: REGULAR. LANGUAGE NORWEGIAN. DOMESTIC VIOLENCE DO YOU FEEL SAFE IN YOUR ENVIRONMENT?YES BMI CARE GOAL FOLLOW-UP ABOVE NORMAL BMI FOLLOW-UPEXERCISE PROMOTION: STRETCHING RECREATIONAL DRUG USE DRUG USE?NO EXERCISE: NO REGULAR EXERCISE. LEARNING BARRIERS / SPECIAL NEEDS CHANGE FROM LAST VISIT?NO BARRIERS TO LEARNING?NO HEARING IMPAIRED?NO VISION IMPAIRED?YES COGNITIVELY IMPAIRED?NO :CORRECTIVE LENSES READING READINESS TO LEARN?YES LEARNING PREFERENCES?YES :DEMONSTRATION/VERBAL INSTRUCTION LEARNING CAPABILITIES PRESENT?YES EMOTIONAL BARRIERS?NO SPECIAL DEVICES?NO SUPERVISOR FINISHING NEEDED?NO PAIN CLINIC PFS, CLERGY, PUBLIC HEALTH REFERRALS HAS THE PATIENT BEEN EDUCATED REGARDING HIS/HER PLAN OF CARE?YES HAS THE PATIENT BEEN EDUCATED REGARDING PAIN, THE RISK FOR PAIN, THE IMPORTANCE OF EFFECTIVE PAIN MANAGEMENT, AND THE PAIN ASSESSMENT PROCESS?YES LATEX QUESTIONNAIRE LATEX ALLERGY : HAVE YOU EVER DEVELOPED ANY TYPE OF REACTION AFTER HANDLING LATEX PRODUCTS SUCH RUBBER GLOVES, CONDOMS, DIAPHRAGMS, BALLOONS, SOCKS, OR UNDERWEAR?NO LATEX ALLERGY : HAVE YOU EVER DEVELOPED ANY TYPE OF REACTION DURING OR AFTER DENTAL APPOINTMENT, VAGINAL/RECTAL EXAMINATION, SURGICAL PROCEDURE, OR ANY OTHER EXPOSURE?NO LATEX RISK : HAVE YOU EVER HAD ANY DIFFICULTY BREATHING OR HIVES AFTER EATING OR HANDLING ANY FRUITS, OR VEGETABLES; SUCH KIWI, BANANAS, STONE FRUITS, OR CHESTNUTSNO LATEX RISK : DO YOU HAVE A PREVIOUS PERSONAL HISTORY OF MORE THAN NINE SURGERIES, SPINA BIFIDA, OR REPEATED CATHERIZATIONS? NO LATEX RISK : ARE YOU FREQUENTLY EXPOSED TO LATEX PRODUCTS IN YOUR OCCUPATION?YES DATE ASKED : 04/08/2019 CAFFEINE CAFFEINE USE?NO ADVANCE DIRECTIVE ADVANCE DIRECTIVE DISCUSSED WITH PATIENT:YES 11/23/2019 PATIENT HAS NO ADVANCED DIRECTIVES AND DECLINED INFORMATION ON HCP AT THIS TIME. JS VOODOO NO RESTORATIONISM BELIEFS THAT WOULD IMPACT HEALTH CARE. MARITAL STATUS: . 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 SEXUAL HX HAD SEX IN THE LAST 12 MONTHS (VAGINAL, ORAL, OR ANAL)?YES WITHWOMEN ONLY PREVENTION STRATEGIES DISCUSSED:OTHER USE PROTECTION?NO HAVE YOU EVER HAD AN STD?NO REVIEWED WITH PATIENT 09/14/19 0921 [id number] PREADMISSION COMPLETED FOR 11-09-19 PROCEDURE KEGREVIEWED WITH PATIENT 11/23/2019 0915 JS. HOSPITALIZATION/MAJOR DIAGNOSTIC PROCEDURE NO HOSPITALIZATION HISTORY. REVIEW OF SYSTEMS REVIEWED BY: PROVIDER: DAVIAN LYON . CONSTITUTIONAL: ANY CHANGE IN YOUR MEDICAL CONDITION? NO . CHILLS NO . FEVER NO . INFECTION: DO YOU HAVE NEW INFECTIONS? NO . DO YOU HAVE HISTORY OF MRSA? NO . MUSCULOSKELETAL: ANY NEW PATTERNS OF PAIN OR NUMBNESS? YES, STATES PAIN NOT INTENSE - STARTED TO NOTICE THE DECREASE IN PAIN JUST A FEW DAYS AGO . GASTROENTEROLOGY: ANY NEW CHANGE IN BOWEL CONTROL? NO . GENITOURINARY: ANY NEW CHANGE IN BLADDER CONTROL? NO . IS THERE A CHANCE YOU COULD BE ? NO . HEMATOLOGY/LYMPH: DO YOU TAKE ANY BLOOD THINNERS? (FOR EXAMPLE- COUMADIN, PLAVIX, AGGRENOX, PLATEL, PRADAXA, OR XARELTO) NO . WHEN WAS YOUR LAST DOSE? DATE: TIME: . NEUROLOGY: HAVE YOU FALLEN IN THE PAST 12 MONTHS? NO . ANY NEW EXTREMITY NUMBNESS OR WEAKNESS? NO . CARDIOLOGY: DO YOU HAVE A PACEMAKER OR DEFIBRILLATOR? NO . RESPIRATORY: HAVE YOU BEEN SICK IN THE PAST WEEK? NO . FEVER NO . FLU LIKE SYMPTOMS? NO . COUGH NO . INTEGUMENTARY: DO YOU HAVE ANY RASHES OR OPEN SORES? NO . ALLERGIC/IMMUNO: ARE YOU ALLERGIC TO IV DYE? NO . ANY NEW ALLERGIES? NO . PSYCHIATRIC: DO YOU HAVE THOUGHTS OF HURTING YOURSELF OR SOMEONE ELSE? NO . ARE YOU ABUSED, NEGLECTED, OR IN AN UNSAFE ENVIRONMENT? NO . ENDOCRINOLOGY: ARE YOU DIABETIC? NO . OTHER: DO YOU NEED ANY PRESCRIPTIONS? NO . IF YES, PLEASE LIST: ____ . ANY NEW PROBLEMS WITH YOUR MEDICATIONS? NO . WHEN DID YOU LAST EAT? ____ . WHEN DID YOU LAST DRINK? ____ . WHAT DID YOU LAST DRINK? ____ . NAME OF PERSON DRIVING YOU HOME? ____ . DO YOU HAVE ANY OTHER QUESTIONS OR CONCERNS NO . VITAL SIGNS WT 255.2 LBS, HT 67 IN, BMI 39.97 INDEX, BP 146/85 MM HG, HR 81 /MIN, RR 18 /MIN, TEMP 97.8 F, OXYGEN SAT % 99%, SAFE IN ENV? (Y/N) YES, REVIEWED BY: DESTINY. EXAMINATION GENERAL EXAMINATION: GENERAL ALERT,NO DISTRESS . PSYCH AFFECT NORMAL . LUNGS: LUNG SOUNDS ARE CLEAR . HEART: HEART RATE REGULAR . MUSCULOSKELETAL: MST 5/5 BILAT. LOWER EXTREMITIES . TENDERNESS NOTED OVER BILATERAL L45 L5-S1 LUMBAR FACETS WITH FACET LOADING.. DIAGNOSTIC TESTS REVIEWEDMRI L/S SPINE-06/13/19. ASSESSMENTS LUMBAR FACET ARTHROPATHY - M47.816 (PRIMARY) TREATMENT OTHERS NOTES: BILATERAL L4-5/L5-S1 LUMBAR FACET BLOCK, DIAGNOSTIC,FACET JOINT INJECTION MATERIAL WAS PRINTED. PREVENTIVE MEDICINE PAIN CLINIC TEACHING: PROCEDURE TEACHING PRINTED AND REVIEWED INFORMATION ON DIAGNOSTIC FACET BLOCK PROCEDURE WITH PATIENT. ALSO REVIEWED PRE-RPOCEDURE INSTRUCTIONS. PATIENT VERBALIZED AN UNDERSTANDING. MERA MCELROY 11/23/2019 3:35:50 PM > . PROCEDURE CODES FA211 ESTABILISHED PATIENT [facility] CHARGE DISPOSITION & COMMUNICATION FOLLOW UP POST (REASON: BILATERAL L4-5/L5-S1 LUMBAR FACET BLOCK, DIAGNOSTIC) ELECTRONICALLY SIGNED BY SONALI AVELAR ON 12/08/2019 AT 08:45 AM EST DISCLAIMER : THIS IS A VISIT SUMMARY EXTRACTED FROM THE [employer] CHART. IT IS NOT A COPY OF THE [employer] PROGRESS NOTE. CURTIS
== END ==
LOC: M PAIN 08:45
PROVIDERS: ATTEND Nurse Practitioner Family
DX: M47.816 Spondylosis without myelopathy or radiculopathy, lumbar region (principal); K21.9 Gastro-esophageal reflux disease without esophagitis; F17.210 Nicotine dependence, cigarettes, uncomplicated; Z88.0 Allergy status to penicillin; Z91.030 Bee allergy status; Z79.899 Other long term (current) drug therapy

== ENCOUNTER → 2020-01-05 | Outpatient (CLI) | payer OTHER ==
[~2020-01-05] MED LIST changes: -TRIAMCINOLONE ACETONIDE SUSP 40 MG/ML VIAL (J3301) As Ordered ONE
--- NOTE | 2020-01-05 14:24 | REP ---
Partial lumbar spine series: Three views . History: Injection procedure for pain. 49 seconds of fluoroscopy time is reported. Findings: A sequence of three fluoroscopically obtained last image hold procedural spot radiographs of the lumbar spine document needle position and contrast injection associated with injection procedure. Electronically Signed by Babak Bolton MD 01/05/2020 02:15 P
--- NOTE | 2020-01-08 02:06 | ECWPNPC ---
PATIENT NAME: VIRIDIANA CASTANEDA : 1965 GENDER: MALE VISIT DATE: 01/05/2020 DISCHARGE DATE: 01/05/20 1128 VISIT LOCKED DATE TIME: PHYSICIAN: PATRICIA MCCOY MD RESOURCE: PATRICIA MCCOY MD REASON FOR APPOINTMENT 1. DIAGNOSTIC LUMBAR FACET BLOCK L4/L5, L5/S1 HISTORY OF PRESENT ILLNESS HISTORY OF PRESENT ILLNESS: PAIN THE PATIENT DESCRIBES THE PAIN... FALL RISK SCREENING: SCREENING :NO FALLS REPORTED IN THE LAST YEAR CURRENT MEDICATIONS TAKING NEXIUM 40 MG CAPSULE DELAYED RELEASE 1 CAPSULE ORALLY ONCE A DAY, NOTES: 3/2 6AM TAKING NITROGLYCERIN 0.4 MG TABLET SUBLINGUAL DIRECTED SUBLINGUAL DAILY, NOTES: NEVER TAKEN TAKING FLONASE ALLERGY RELIEF 50 MCG/ACT SUSPENSION 1 SPRAY IN EACH NOSTRIL NASALLY ONCE A DAY NEEDED, NOTES: 1 WEEK AGO TAKING ADRENACLICK 0.3 MG/0.3ML SOLUTION AUTO-INJECTOR DIRECTED INJECTION AT ONSET OF BEE STING AND THEN PROCEED TO ER FOR MONITORING, NOTES: KEEP ONE AT HOME AND ONE IN THE CAR. TAKING CYCLOBENZAPRINE HCL 10 MG TABLET 1 TAB ORALLY THREE TIMES DAILY NEEDED, NOTES: 2 WEEKS TAKING NAPROXEN 500 MG TABLET 1 TABLET WITH FOOD OR MILK NEEDED ORALLY EVERY 12 HRS, NOTES: 1 WEEK TAKING GABAPENTIN 300 MG CAPSULE 2 CAPSULE ORALLY THREE TIMES DAILY, NOTES: NOT USED IN 3 WEEKS NAUSEATED NOT-TAKING CYANOCOBALAMIN 1000 MCG/ML SOLUTION 1 ML INJECTION NOT-TAKING GLUCOMETER DIRECTED CHECK SUGAR DAILY NOT-TAKING BLOOD GLUCOSE TEST - STRIP DIRECTED IN VITRO DAILY ON SIDE OF FINGER. DX: E11.9 NOT-TAKING LANCETS - MISCELLANEOUS DIRECTED ON SIDE OF FINGER DAILY BEFORE BREAKFAST. DX: E11.9 MEDICATION LIST REVIEWED AND RECONCILED WITH THE PATIENT PAST MEDICAL HISTORY GERD LOW BACK PAIN ALLERGIES PENICILLIN (FOR ALLERGIES USE ONLY): HIVES - ALLERGY BEE STINGS : ANAPHYLAXIS - ALLERGY SURGICAL HISTORY LEFT INGUINAL HERNIA REPAIR FROM [facility] 1999 RIGHT KNEE ARTHROPLASTY 2001 FAMILY HISTORY FATHER: 75 YRS, HEART DISEASE, HIGH CHOLESTEROL, DIAGNOSED WITH HYPERTENSION MOTHER: ALIVE 75 YRS, DOES NOT KNOW ANY MEDICAL HISTORY ON HER BROTHER: ALIVE 51 YRS, UNKNOWN SISTER: ALIVE 53 YRS, HEALTHY 1 BROTHER(S) , 3 SISTER(S) . 2DAUGHTER(S) - HEALTHY. SOCIAL HISTORY GENERAL: TOBACCO USE ARE YOU A:CURRENT SMOKER ARE YOU INTERESTED IN QUITTING?READY TO QUIT CUTTING DOWN PREVIOUS QUIT ATTEMPTS?YES, MORE THAN 6 MONTHS AGO. COUNSELED THE PATIENT ON TOBACCO USE, CESSATION [id number]/19/2020 HOW MANY CIGARETTES A DAY DO YOU SMOKE?21-30 HOW SOON AFTER YOU WAKE UP DO YOU SMOKE YOUR FIRST CIGARETTE?6-30 MIN HOW OFTEN DO YOU SMOKE CIGARETTES?EVERY DAY PATIENT COUNSELED ON THE DANGERS OF TOBACCO USE AND URGED TO QUIT:01/05/2020 SMOKING CESSATION INFORMATION GIVEN11/02/2019 HIV / HEP-C SCREENING HIV TEST OFFERED TO PATIENT:YES DATE OFFERED:10/08/2016 TEST ACCEPTED:YES HEP-C TEST OFFERED TO PATIENT:YES DATE OFFERED:10/08/2016 TEST ACCEPTED:YES EDUCATION COLLEGE. DIET: REGULAR. LANGUAGE NORTHERN IRISH. DOMESTIC VIOLENCE DO YOU FEEL SAFE IN YOUR ENVIRONMENT?YES BMI CARE GOAL FOLLOW-UP ABOVE NORMAL BMI FOLLOW-UPEXERCISE PROMOTION: STRETCHING RECREATIONAL DRUG USE DRUG USE?NO EXERCISE: NO REGULAR EXERCISE. LEARNING BARRIERS / SPECIAL NEEDS CHANGE FROM LAST VISIT?NO BARRIERS TO LEARNING?NO HEARING IMPAIRED?NO VISION IMPAIRED?YES :CORRECTIVE LENSES READING COGNITIVELY IMPAIRED?NO READINESS TO LEARN?YES LEARNING PREFERENCES?YES :DEMONSTRATION/VERBAL INSTRUCTION LEARNING CAPABILITIES PRESENT?YES EMOTIONAL BARRIERS?NO SPECIAL DEVICES?NO STATION HELPER NEEDED?NO PAIN CLINIC PFS, CLERGY, PUBLIC HEALTH REFERRALS WAS THE PROVIDER NOTIFIED OF ANY PERTINENT INFO?YES HAS THE PATIENT BEEN EDUCATED REGARDING HIS/HER PLAN OF CARE?YES HAS THE PATIENT BEEN EDUCATED REGARDING PAIN, THE RISK FOR PAIN, THE IMPORTANCE OF EFFECTIVE PAIN MANAGEMENT, AND THE PAIN ASSESSMENT PROCESS?YES LATEX QUESTIONNAIRE LATEX ALLERGY : HAVE YOU EVER DEVELOPED ANY TYPE OF REACTION AFTER HANDLING LATEX PRODUCTS SUCH RUBBER GLOVES, CONDOMS, DIAPHRAGMS, BALLOONS, SOCKS, OR UNDERWEAR?NO LATEX ALLERGY : HAVE YOU EVER DEVELOPED ANY TYPE OF REACTION DURING OR AFTER DENTAL APPOINTMENT, VAGINAL/RECTAL EXAMINATION, SURGICAL PROCEDURE, OR ANY OTHER EXPOSURE?NO LATEX RISK : HAVE YOU EVER HAD ANY DIFFICULTY BREATHING OR HIVES AFTER EATING OR HANDLING ANY FRUITS, OR VEGETABLES; SUCH KIWI, BANANAS, STONE FRUITS, OR CHESTNUTSNO LATEX RISK : DO YOU HAVE A PREVIOUS PERSONAL HISTORY OF MORE THAN NINE SURGERIES, SPINA BIFIDA, OR REPEATED CATHERIZATIONS? NO LATEX RISK : ARE YOU FREQUENTLY EXPOSED TO LATEX PRODUCTS IN YOUR OCCUPATION?YES DATE ASKED : 12/23/2019 CAFFEINE CAFFEINE USE?NO ADVANCE DIRECTIVE ADVANCE DIRECTIVE DISCUSSED WITH PATIENT:YES PATIENT HAS NO ADVANCED DIRECTIVES AND DECLINED INFORMATION ON HCP AT THIS TIME. EPISCOPALIAN NO SCIENTOLOGY BELIEFS THAT WOULD IMPACT HEALTH CARE. MARITAL STATUS: . 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 SEXUAL HX HAD SEX IN THE LAST 12 MONTHS (VAGINAL, ORAL, OR ANAL)?YES WITHWOMEN ONLY PREVENTION STRATEGIES DISCUSSED:OTHER USE PROTECTION?NO HAVE YOU EVER HAD AN STD?NO REVIEWED WITH PATIENT 09/14/19 0921 [id number] PREADMISSION COMPLETED FOR 11-09-19 PROCEDURE KEGREVIEWED WITH PATIENT 11/23/2019 0915 12/23/2019 1557 PRE-PROCEDURE CALL COMPLETED ADREVIEWED WITH PATIENT 01/05/2020 DS. HOSPITALIZATION/MAJOR DIAGNOSTIC PROCEDURE DENIES PAST HOSPITALIZATION REVIEW OF SYSTEMS REVIEWED BY: PROVIDER: . CONSTITUTIONAL: ANY CHANGE IN YOUR MEDICAL CONDITION? NO . CHILLS NO . FEVER NO . INFECTION: DO YOU HAVE NEW INFECTIONS? NO . DO YOU HAVE HISTORY OF MRSA? NO . MUSCULOSKELETAL: ANY NEW PATTERNS OF PAIN OR NUMBNESS? NO . GASTROENTEROLOGY: ANY NEW CHANGE IN BOWEL CONTROL? NO . GENITOURINARY: ANY NEW CHANGE IN BLADDER CONTROL? NO . IS THERE A CHANCE YOU COULD BE ? NO . HEMATOLOGY/LYMPH: DO YOU TAKE ANY BLOOD THINNERS? (FOR EXAMPLE- COUMADIN, PLAVIX, AGGRENOX, PLATEL, PRADAXA, OR XARELTO) NO . WHEN WAS YOUR LAST DOSE? DATE: TIME: . NEUROLOGY: HAVE YOU FALLEN IN THE PAST 12 MONTHS? NO . ANY NEW EXTREMITY NUMBNESS OR WEAKNESS? NO . CARDIOLOGY: DO YOU HAVE A PACEMAKER OR DEFIBRILLATOR? NO . RESPIRATORY: HAVE YOU BEEN SICK IN THE PAST WEEK? NO . FEVER NO . FLU LIKE SYMPTOMS? NO . COUGH NO . INTEGUMENTARY: DO YOU HAVE ANY RASHES OR OPEN SORES? NO . ALLERGIC/IMMUNO: ARE YOU ALLERGIC TO IV DYE? NO . ANY NEW ALLERGIES? NO . PSYCHIATRIC: DO YOU HAVE THOUGHTS OF HURTING YOURSELF OR SOMEONE ELSE? NO . ARE YOU ABUSED, NEGLECTED, OR IN AN UNSAFE ENVIRONMENT? NO . ENDOCRINOLOGY: ARE YOU DIABETIC? NO . OTHER: DO YOU NEED ANY PRESCRIPTIONS? NO . IF YES, PLEASE LIST: ____ . ANY NEW PROBLEMS WITH YOUR MEDICATIONS? NO . WHEN DID YOU LAST EAT? 01/03 830PM . WHEN DID YOU LAST DRINK? 01/03 11PM . WHAT DID YOU LAST DRINK? LEMONADE . NAME OF PERSON DRIVING YOU HOME? ELVIA . DO YOU HAVE ANY OTHER QUESTIONS OR CONCERNS NO . VITAL SIGNS WT 250.6 LBS, HT 67 IN, BMI 39.25 INDEX, BP 137/87 MM HG, HR 80 /MIN, RR 18 /MIN, TEMP 97.6 F, OXYGEN SAT % 96%, SAFE IN ENV? (Y/N) Y, NA INITIALS AW 0926, REVIEWED BY: DS. ASSESSMENTS SPONDYLOSIS WITHOUT MYELOPATHY OR RADICULOPATHY, LUMBAR REGION - M47.816 (PRIMARY) SPONDYLOSIS WITHOUT MYELOPATHY OR RADICULOPATHY, LUMBOSACRAL REGION - M47.817 PROCEDURES PN LUMBAR FACET BLOCK DIAGNOSTIC PRE PROCEDURE DIAGNOSIS LUMBAR SPONDYLOSIS, LUMBOSACRAL SPONDYLOSIS POST PROCEDURE DIAGNOSIS LUMBAR SPONDYLOSIS, LUMBOSACRAL SPONDYLOSIS PROCEDURE BILATERAL L4-L5 AND L5-S1 FACET BLOCK DIAGNOSTIC NUMBER [address] PATRICIA MCCOY SERVICE MEMBER NONE ANESTHESIA LOCAL PRE PROCEDURE NOTE THE PATIENT WITH HISTORY OF CHRONIC LOW BACK PAIN. I EVALUATED THE PATIENT AND REVIEWED THE CHART. I WENT OVER THE RISKS, ALTERNATIVES, AND BENEFITS ASSOCIATED WITH THIS PROCEDURE. THE PATIENT WOULD LIKE TO PROCEED AND GAVE CONSENT TO PERFORM THE PROCEDURE. AGREED WITH THE PATIENT WE ARE DOING THIS PROCEDURE TO DETERMINE IF THE PATIENT IS A CANDIDATE FOR A RADIOFREQUENCY ABLATION OF THE FACETS JOINTS. THE PATIENT DENIES UNEXPLAINABLE WEIGHT LOSS, FEVER, CHILLS, OR NEW CHANGES IN URINARY OR BOWEL CONTROL DESCRIPTION OF PROCEDURE THE PATIENT WAS BROUGHT TO THE PROCEDURE ROOM AND PLACED IN THE PRONE POSITION. THE LUMBOSACRAL AREA WAS CLEANED WITH CHLORAPREP SOLUTION AND DRAPED ASEPTICALLY. THE PROCEDURE WAS DONE UNDER STERILE CONDITIONS. I CHECKED LATERALITY AND THE LEVEL WHERE THE PROCEDURE WAS GOING TO BE PERFORMED WITH THE PATIENT AND THE SUPPORTING STAFF AT THE MOMENT OF THE TIME OUT IN THE PROCEDURE ROOM. UNDER FLUOROSCOPIC GUIDANCE, TARGETS WERE SELECTED AT THE INTERSECTION OF THE RIGHT AND LEFT TRANSVERSE PROCESS OF L4, L5 AND ALA OF S1 WITH ITS RESPECTIVE SUPERIOR ARTICULAR PROCESS. LIDOCAINE WAS USED TO NUMB THE SKIN AND THE SUBCUTANEOUS TISSUE BELOW IT. SPINAL NEEDLE, 22-GAUGE WAS ADVANCED UNDER FLUOROSCOPIC GUIDANCE AND FOLLOWING PATIENT FEEDBACK UNTIL THE TARGETS WERE REACHED. POSITION OF THE NEEDLES WAS VERIFIED WITH AP AND LATERAL VIEWS. AFTER PROPER POSITION OF THE NEEDLES WAS ACHIEVED, ISOVUE-M DYE 30% 0.1 ML WAS INJECTED AT EACH SITE SHOWING ADEQUATE SPREAD OF THE DYE. THEN A SOLUTION OF 0.4 ML OF BUPIVACAINE 0.25% WAS INJECTED AT EACH SITE. THERE WAS NO EVIDENCE OF BLOOD, PARESTHESIA OR CEREBROSPINAL FLUID DURING THE PROCEDURE. THE PATIENT WAS SENT TO THE RECOVERY ROOM. THE PATIENT WAS MOVING THE EXTREMITIES AND DOING WELL. THERE WAS NO COMPLICATION DURING THE PROCEDURE. FLUOROSCOPY TIME WAS 49 SECONDS POST PROCEDURE NOTE THE PATIENT WILL DOCUMENT HIS PAIN LEVEL AND RESPONSE TO THIS PROCEDURE EVERY 30 MINUTES. THE PATIENT WILL BE SEEN IN A FOLLOW UP IN THE NEXT FEW WEEKS. FURTHER DETERMINATION FOR HIS CASE WILL BE DONE AT THE NEXT VISIT. INSTRUCTIONS WERE GIVEN, QUESTIONS WERE ANSWERED, AND THE PATIENT EXPRESSED UNDERSTANDING AND AGREED WITH THE PLAN. I, RADHIKA PAK, DOCUMENTED THE ABOVE INFORMATION ACTING A SCRIBE FOR DR. MCCOY. I HAVE REVIEWED THE ABOVE DOCUMENT, WRITTEN BY RADHIKA PAK SCRIBE AND I VERIFY THAT IT IS ACCURATE. DIAGNOSTIC IMAGING [facility] FACET BLOCK (PAIN)[id number] PROCEDURE CODES 43152 INJ PARAVERT F JNT L/S 1 LEV, MODIFIERS: 50 [id number] INJ PARAVERT F JNT L/S 2 LEV, MODIFIERS: 50 [id number] RADXPS IN END [id number] PXD DISPOSITION & COMMUNICATION FOLLOW UP 3 WEEKS ELECTRONICALLY SIGNED BY PATRICIA MCCOY MD, MD ON 01/07/2020 AT 03:16 PM EST DISCLAIMER : THIS IS A VISIT SUMMARY EXTRACTED FROM THE [employer] CHART. IT IS NOT A COPY OF THE [employer] PROGRESS NOTE. MTDD
== END ==
LOC: M PAIN 09:00
PROVIDERS: ATTEND Anesthesiology
DX: M47.816 Spondylosis without myelopathy or radiculopathy, lumbar region (principal); M47.817 Spondylosis without myelopathy or radiculopathy, lumbosacral region
CPT/HCPCS: 64493; 64494; Q9967

== ENCOUNTER → 2020-01-26 | Outpatient (CLI) | payer OTHER ==
--- NOTE | 2020-02-09 02:00 | ECWPNPC ---
PATIENT NAME: VIRIDIANA CASTANEDA : 1965 GENDER: MALE VISIT DATE: 01/26/2020 DISCHARGE DATE: 01/26/20 1004 VISIT LOCKED DATE TIME: PHYSICIAN: DAVIAN BAKER RESOURCE: DAVIAN BAKER REASON FOR APPOINTMENT 1. POST BILATERAL LUMBAR HISTORY OF PRESENT ILLNESS HISTORY OF PRESENT ILLNESS: HERE FOR POST PROCEDURE FOLLOW-UP. HAD BILATERAL L4-5, L5-S1 DIAGNOSTIC LUMBAR FACET BLOCK ON 01/05/2020. REPORTING NO IMPROVEMENT, EVEN FOR A SHORT PERIOD OF TIME POST PROCEDURE. RATING PAIN VAS 9/10. PAIN IS ACROSS LOW BACK. PAIN IS AGGRAVATED WITH ANY ACTIVITY. PAIN IS RELIEVED AT REST. PAIN THE PATIENT DESCRIBES THE PAIN... FALL RISK SCREENING: SCREENING :NO FALLS REPORTED IN THE LAST YEAR CURRENT MEDICATIONS TAKING NEXIUM 40 MG CAPSULE DELAYED RELEASE 1 CAPSULE ORALLY ONCE A DAY TAKING NITROGLYCERIN 0.4 MG TABLET SUBLINGUAL DIRECTED SUBLINGUAL DAILY TAKING FLONASE ALLERGY RELIEF 50 MCG/ACT SUSPENSION 1 SPRAY IN EACH NOSTRIL NASALLY ONCE A DAY NEEDED TAKING ADRENACLICK 0.3 MG/0.3ML SOLUTION AUTO-INJECTOR DIRECTED INJECTION AT ONSET OF BEE STING AND THEN PROCEED TO ER FOR MONITORING, NOTES: KEEP ONE AT HOME AND ONE IN THE CAR. TAKING CYCLOBENZAPRINE HCL 10 MG TABLET 1 TAB ORALLY THREE TIMES DAILY NEEDED TAKING NAPROXEN 500 MG TABLET 1 TABLET WITH FOOD OR MILK NEEDED ORALLY EVERY 12 HRS TAKING GABAPENTIN 300 MG CAPSULE 2 CAPSULE ORALLY THREE TIMES DAILY, NOTES: NOT USED IN 3 WEEKS NAUSEATED NOT-TAKING CYANOCOBALAMIN 1000 MCG/ML SOLUTION 1 ML INJECTION NOT-TAKING GLUCOMETER DIRECTED CHECK SUGAR DAILY NOT-TAKING BLOOD GLUCOSE TEST - STRIP DIRECTED IN VITRO DAILY ON SIDE OF FINGER. DX: E11.9 NOT-TAKING LANCETS - MISCELLANEOUS DIRECTED ON SIDE OF FINGER DAILY BEFORE BREAKFAST. DX: E11.9 MEDICATION LIST REVIEWED AND RECONCILED WITH THE PATIENT PAST MEDICAL HISTORY GERD LOW BACK PAIN ALLERGIES PENICILLIN (FOR ALLERGIES USE ONLY): HIVES - ALLERGY BEE STINGS : ANAPHYLAXIS - ALLERGY SURGICAL HISTORY [facility] 2001 FAMILY HISTORY FATHER: 75 YRS, HEART DISEASE, HIGH CHOLESTEROL, DIAGNOSED WITH HYPERTENSION MOTHER: ALIVE 75 YRS, DOES NOT KNOW ANY MEDICAL HISTORY ON HER BROTHER: ALIVE 51 YRS, UNKNOWN SISTER: ALIVE 53 YRS, HEALTHY 1 BROTHER(S) , 3 SISTER(S) . 2DAUGHTER(S) - HEALTHY. SOCIAL HISTORY GENERAL: TOBACCO USE ARE YOU A:CURRENT SMOKER ARE YOU INTERESTED IN QUITTING?READY TO QUIT CUTTING DOWN PREVIOUS QUIT ATTEMPTS?YES, MORE THAN 6 MONTHS AGO. COUNSELED THE PATIENT ON TOBACCO USE, CESSATION [id number]/19/2020 HOW MANY CIGARETTES A DAY DO YOU SMOKE?21-30 HOW SOON AFTER YOU WAKE UP DO YOU SMOKE YOUR FIRST CIGARETTE?6-30 MIN HOW OFTEN DO YOU SMOKE CIGARETTES?EVERY DAY PATIENT COUNSELED ON THE DANGERS OF TOBACCO USE AND URGED TO QUIT:01/26/2020 SMOKING CESSATION INFORMATION GIVEN11/02/2019 HIV / HEP-C SCREENING HIV TEST OFFERED TO PATIENT:YES DATE OFFERED:10/08/2016 TEST ACCEPTED:YES HEP-C TEST OFFERED TO PATIENT:YES DATE OFFERED:10/08/2016 TEST ACCEPTED:YES EDUCATION COLLEGE. DIET: REGULAR. LANGUAGE KOREAN. DOMESTIC VIOLENCE DO YOU FEEL SAFE IN YOUR ENVIRONMENT?YES NEW PATIENT PAIN DIARY TODAY'S VISIT 01/26/2020 PATIENT DESCRIBES PAIN :BURNING, HAVE IT ALL THE TIME, SHARP, STABBING, TENDER, THROBBING, OTHER FROM 0-10, WHAT LEVEL IS YOUR PAIN TODAY?9 PRECIPITATING FACTORS STANDING AND WALKING ALLEVIATING FACTORS SITTING HAVE YOU BEEN SICK IN THE LAST WEEK (COLD, COUGH, FEVER, FLU, ETC)NO DO YOU TAKE ANY BLOOD THINNERS?NO DO YOU HAVE ANY RASHES OR OPEN SORES?NO ANY CHANGE IN BOWEL OR BLADDER CONTROL?NO ARE YOU ALLERGIC TO SHELLFISH OR IV DYE?NO ARE YOU DIABETIC?NO DO YOU HAVE A PACEMAKER OR DEFIBRILLATOR?NO ANY NEW PROBLEMS WITH MEDICINES OR NEW ALLERGIESYES GABAPENTIN, PT STATES THAT HE FEELS LIGHT-HEADED, CONFUSED, HARD TO FOCUS WHEN TAKING GABAPENTIN ANY NEW PATTERNS OF PAIN OR NUMBNESS?NO ANY CHANGE IN YOUR MEDICAL CONDITION?NO HAVE YOU FALLEN IN THE LAST 6 MONTHS?NO DO YOU USE ANY TYPE OF TOBACCO (SMOKE, SMOKELESS, CHEW, ETC.)YES ARE YOU ABUSED, NEGLECTED, OR IN AN UNSAFE ENVIRONMENT?NO DO YOU HAVE THOUGHTS OF HURTING YOURSELF OR SOMEONE ELSE?NO DO YOU NEED ANY PRESCRIPTIONS?NO DO YOU HAVE ANY OTHER QUESTIONS OR CONCERNS?YES BMI CARE GOAL FOLLOW-UP ABOVE NORMAL BMI FOLLOW-UPEXERCISE PROMOTION: STRETCHING RECREATIONAL DRUG USE DRUG USE?NO EXERCISE: NO REGULAR EXERCISE. LEARNING BARRIERS / SPECIAL NEEDS CHANGE FROM LAST VISIT?NO BARRIERS TO LEARNING?NO HEARING IMPAIRED?NO VISION IMPAIRED?YES COGNITIVELY IMPAIRED?NO :CORRECTIVE LENSES READING READINESS TO LEARN?YES LEARNING PREFERENCES?YES :DEMONSTRATION/VERBAL INSTRUCTION LEARNING CAPABILITIES PRESENT?YES EMOTIONAL BARRIERS?NO SPECIAL DEVICES?NO RESEARCHER NEEDED?NO PAIN CLINIC PFS, CLERGY, PUBLIC HEALTH REFERRALS WAS THE PROVIDER NOTIFIED OF ANY PERTINENT INFO?YES HAS THE PATIENT BEEN EDUCATED REGARDING HIS/HER PLAN OF CARE?YES HAS THE PATIENT BEEN EDUCATED REGARDING PAIN, THE RISK FOR PAIN, THE IMPORTANCE OF EFFECTIVE PAIN MANAGEMENT, AND THE PAIN ASSESSMENT PROCESS?YES LATEX QUESTIONNAIRE LATEX ALLERGY : HAVE YOU EVER DEVELOPED ANY TYPE OF REACTION AFTER HANDLING LATEX PRODUCTS SUCH RUBBER GLOVES, CONDOMS, DIAPHRAGMS, BALLOONS, SOCKS, OR UNDERWEAR?NO LATEX ALLERGY : HAVE YOU EVER DEVELOPED ANY TYPE OF REACTION DURING OR AFTER DENTAL APPOINTMENT, VAGINAL/RECTAL EXAMINATION, SURGICAL PROCEDURE, OR ANY OTHER EXPOSURE?NO LATEX RISK : HAVE YOU EVER HAD ANY DIFFICULTY BREATHING OR HIVES AFTER EATING OR HANDLING ANY FRUITS, OR VEGETABLES; SUCH KIWI, BANANAS, STONE FRUITS, OR CHESTNUTSNO LATEX RISK : DO YOU HAVE A PREVIOUS PERSONAL HISTORY OF MORE THAN NINE SURGERIES, SPINA BIFIDA, OR REPEATED CATHERIZATIONS? NO LATEX RISK : ARE YOU FREQUENTLY EXPOSED TO LATEX PRODUCTS IN YOUR OCCUPATION?YES DATE ASKED : 01/26/2020 CAFFEINE CAFFEINE USE?NO ADVANCE DIRECTIVE ADVANCE DIRECTIVE DISCUSSED WITH PATIENT:YES PATIENT HAS NO ADVANCED DIRECTIVES AND DECLINED INFORMATION ON HCP AT THIS TIME. ANABAPTIST NO LUTHERAN BELIEFS THAT WOULD IMPACT HEALTH CARE. MARITAL STATUS: . 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 SEXUAL HX HAD SEX IN THE LAST 12 MONTHS (VAGINAL, ORAL, OR ANAL)?YES WITHWOMEN ONLY PREVENTION STRATEGIES DISCUSSED:OTHER USE PROTECTION?NO HAVE YOU EVER HAD AN STD?NO HOSPITALIZATION/MAJOR DIAGNOSTIC PROCEDURE NO HOSPITALIZATION HISTORY. REVIEW OF SYSTEMS REVIEWED BY: PROVIDER: DAVIAN LYON . CONSTITUTIONAL: ANY CHANGE IN YOUR MEDICAL CONDITION? NO . CHILLS NO . FEVER NO . INFECTION: DO YOU HAVE NEW INFECTIONS? NO . DO YOU HAVE HISTORY OF MRSA? NO . MUSCULOSKELETAL: ANY NEW PATTERNS OF PAIN OR NUMBNESS? NO . GASTROENTEROLOGY: ANY NEW CHANGE IN BOWEL CONTROL? NO . GENITOURINARY: ANY NEW CHANGE IN BLADDER CONTROL? NO . IS THERE A CHANCE YOU COULD BE ? NO . HEMATOLOGY/LYMPH: DO YOU TAKE ANY BLOOD THINNERS? (FOR EXAMPLE- COUMADIN, PLAVIX, AGGRENOX, PLATEL, PRADAXA, OR XARELTO) NO . WHEN WAS YOUR LAST DOSE? DATE: TIME: . NEUROLOGY: HAVE YOU FALLEN IN THE PAST 12 MONTHS? NO . ANY NEW EXTREMITY NUMBNESS OR WEAKNESS? NO . CARDIOLOGY: DO YOU HAVE A PACEMAKER OR DEFIBRILLATOR? NO . RESPIRATORY: HAVE YOU BEEN SICK IN THE PAST WEEK? NO . FEVER NO . FLU LIKE SYMPTOMS? NO . COUGH NO . INTEGUMENTARY: DO YOU HAVE ANY RASHES OR OPEN SORES? NO . ALLERGIC/IMMUNO: ARE YOU ALLERGIC TO IV DYE? NO . ANY NEW ALLERGIES? NO . PSYCHIATRIC: DO YOU HAVE THOUGHTS OF HURTING YOURSELF OR SOMEONE ELSE? NO . ARE YOU ABUSED, NEGLECTED, OR IN AN UNSAFE ENVIRONMENT? NO . ENDOCRINOLOGY: ARE YOU DIABETIC? NO . OTHER: DO YOU NEED ANY PRESCRIPTIONS? NO . IF YES, PLEASE LIST: ____ . ANY NEW PROBLEMS WITH YOUR MEDICATIONS? NO . WHEN DID YOU LAST EAT? ____ . WHEN DID YOU LAST DRINK? ____ . WHAT DID YOU LAST DRINK? ____ . NAME OF PERSON DRIVING YOU HOME? ____ . DO YOU HAVE ANY OTHER QUESTIONS OR CONCERNS NO . VITAL SIGNS WT 250 LBS, HT 67 IN, BMI 39.15 INDEX, BP 146/96 MM HG, HR 91 /MIN, RR 18 /MIN, TEMP 96.0 F, OXYGEN SAT % 98%, SAFE IN ENV? (Y/N) Y, NA INITIALS AW 0916, REVIEWED BY: DORA. EXAMINATION GENERAL EXAMINATION: GENERAL AWAKE,ALERT ,PLEAASANT . PSYCH AFFECT NORMAL . LUNGS: LUNG CHA ARE CLEAR TO AUSCULTATION BILATERALLY. GOOD MOVEMENT OF AIR . HEART: S1, S2 IN A REGULAR RATE AND RHYTHM. NO SIGNIFICANT MURMURS, RUBS OR GALLOPS NOTED . MUSCULOSKELETAL: MUSCLE STRENGTH TESTING 4/5 BILATERAL LOWER EXTREMITIES. LUMBAR: TRIGGER POINTS:, ELICITED WITH PALPATION OVER RIGHT LUMBAR PARAVERTEBRAL MUSCLES AND BUTTOCKS.INCREASE PAIN IN THIS REGION WITH ROJM SPINE. ASSESSMENTS MYALGIA, OTHER SITE - M79.18 (PRIMARY) TREATMENT MYALGIA, OTHER SITE START TIZANIDINE HCL TABLET, 4 MG, 1 TABLET NEEDED, ORALLY, BEFORE BEDTIME MAY REPEAT IN 4 HRS, 30 DAYS, 45, REFILLS 2 NOTES: TPI RIGHT LOW BACK/BUTTOCK. PREVENTIVE MEDICINE PAIN CLINIC TEACHING: THE PATIENT HAS BEEN EDUCATED REGARDING HIS/HER PLAN OF CARE : EDUCATED PT REGARDING PRE-PROCEDURE INSTRUCTIONS, DISCUSSED WRITTEN AND VERBAL INSTRUCTIONS, PT ACKNOWLEDGED UNDERSTANDING. DS PROCEDURE CODES [id number] ESTABILISHED PATIENT [facility] CHARGE DISPOSITION & COMMUNICATION FOLLOW UP POST (REASON: TPI RIGHT LOW BACK/BUTTOCK) ELECTRONICALLY SIGNED BY SONALI AVELAR ON 02/08/2020 AT 02:48 PM EDT DISCLAIMER : THIS IS A VISIT SUMMARY EXTRACTED FROM THE [employer] CHART. IT IS NOT A COPY OF THE [employer] PROGRESS NOTE. CURTIS
== END ==
LOC: M PAIN 08:45
PROVIDERS: ATTEND Nurse Practitioner Family
DX: M79.18 Myalgia, other site (principal); K21.9 Gastro-esophageal reflux disease without esophagitis; F17.210 Nicotine dependence, cigarettes, uncomplicated; Z88.0 Allergy status to penicillin; Z91.030 Bee allergy status; Z79.899 Other long term (current) drug therapy

== ENCOUNTER → 2020-02-18 | Outpatient (CLI) | payer OTHER ==
--- NOTE | 2020-02-24 00:52 | ECWPNPC ---
PATIENT NAME: VIRIDIANA CASTANEDA : 1965 GENDER: MALE VISIT DATE: 02/18/2020 DISCHARGE DATE: 02/18/20 1149 VISIT LOCKED DATE TIME: PHYSICIAN: PATRICIA MCCOY MD RESOURCE: PATRICIA MCCOY MD REASON FOR APPOINTMENT 1. LOW BACK PAIN HISTORY OF PRESENT ILLNESS HISTORY OF PRESENT ILLNESS: PAIN THE PATIENT DESCRIBES THE PAIN... PERMISSION FROM PATIENT WAS RECEIVED TO DO TELEMEDICINE OFFICE VISIT VIA ZOOM. 54-YEAR-OLD MALE PATIENT WITH A HISTORY OF CHRONIC LOW BACK PAIN. THE PATIENT DESCRIBES THE PAIN BURNING, CONSTANT, SHARP, SHOOTING, STABBING, THROBBING AND SORE WITH A PAIN SCORE RANGING FROM 5-9/10 DEPENDING ON PHYSICAL ACTIVITY. THE PATIENT STATES THAT THE PAIN IS MOSTLY LOCATED IN THE BACK AND RADIATES TO BOTH LEGS, WITH NUMBNESS AND TINGLING IN THE LEGS. THE PATIENT HAS HAD MULTIPLE INJECTIONS IN THE PAST WITH NO RELIEF FROM ANY OF THEM. THE PATIENT IS CURRENTLY TAKING NAPROXEN, CYCLOBENZAPRINE AND TIZANIDINE FOR THE PAIN AND HAS NOT NOTICED ANY CHANGE IN SYMPTOMS. THE PATIENT STATES THAT LAST YEAR, ON MORNING, HE WAS GETTING READY FOR THE DAY AND STEPPED OUT OF THE SHOWER AND TWISTED TO GRAB A TOWEL AND EVER SINCE THEN HAS HAD THE PAIN IN HIS BACK. THE PATIENT STATES THAT HE CANNOT STAND FOR LONG PERIODS OF TIME. PATIENT DENIES UNEXPLAINABLE WEIGHT LOSS, FEVER, CHILLS, NEW CHANGES ON HIS URINARY OR BOWEL CONTROL. FALL RISK SCREENING: SCREENING :NO FALLS REPORTED IN THE LAST YEAR CURRENT MEDICATIONS TAKING NEXIUM 40 MG CAPSULE DELAYED RELEASE 1 CAPSULE ORALLY ONCE A DAY TAKING NITROGLYCERIN 0.4 MG TABLET SUBLINGUAL DIRECTED SUBLINGUAL DAILY TAKING FLONASE ALLERGY RELIEF 50 MCG/ACT SUSPENSION 1 SPRAY IN EACH NOSTRIL NASALLY ONCE A DAY NEEDED TAKING ADRENACLICK 0.3 MG/0.3ML SOLUTION AUTO-INJECTOR DIRECTED INJECTION AT ONSET OF BEE STING AND THEN PROCEED TO ER FOR MONITORING, NOTES: KEEP ONE AT HOME AND ONE IN THE CAR. TAKING CYCLOBENZAPRINE HCL 10 MG TABLET 1 TAB ORALLY THREE TIMES DAILY NEEDED TAKING NAPROXEN 500 MG TABLET 1 TABLET WITH FOOD OR MILK NEEDED ORALLY EVERY 12 HRS TAKING TIZANIDINE HCL 4 MG TABLET 1 TABLET NEEDED ORALLY BEFORE BEDTIME MAY REPEAT IN 4 HRS NOT-TAKING GABAPENTIN 300 MG CAPSULE 2 CAPSULE ORALLY THREE TIMES DAILY, NOTES: NOT USED IN 3 WEEKS NAUSEATED NOT-TAKING CYANOCOBALAMIN 1000 MCG/ML SOLUTION 1 ML INJECTION NOT-TAKING GLUCOMETER DIRECTED CHECK SUGAR DAILY NOT-TAKING BLOOD GLUCOSE TEST - STRIP DIRECTED IN VITRO DAILY ON SIDE OF FINGER. DX: E11.9 NOT-TAKING LANCETS - MISCELLANEOUS DIRECTED ON SIDE OF FINGER DAILY BEFORE BREAKFAST. DX: E11.9 MEDICATION LIST REVIEWED AND RECONCILED WITH THE PATIENT PAST MEDICAL HISTORY GERD LOW BACK PAIN HTN-PT STATES B/P WAS ONLY HIGH ONCE ALLERGIES PENICILLIN (FOR ALLERGIES USE ONLY): HIVES - ALLERGY BEE STINGS : ANAPHYLAXIS - ALLERGY GABAPENTIN: HEADACHE, ABD. PAIN, TROUBLE FOCUSING AND MAKES SHAKEY - SIDE EFFECTS SURGICAL HISTORY LEFT INGUINAL HERNIA REPAIR FROM [place] 1999 RIGHT KNEE ARTHROPLASTY 2001 FAMILY HISTORY FATHER: 75 YRS, HEART DISEASE, HIGH CHOLESTEROL, DIAGNOSED WITH HYPERTENSION MOTHER: ALIVE 75 YRS, DOES NOT KNOW ANY MEDICAL HISTORY ON HER BROTHER: ALIVE 51 YRS, UNKNOWN SISTER: ALIVE 53 YRS, HEALTHY 1 BROTHER(S) , 3 SISTER(S) . 2DAUGHTER(S) - HEALTHY. SOCIAL HISTORY GENERAL: TOBACCO USE ARE YOU A:CURRENT SMOKER ARE YOU INTERESTED IN QUITTING?READY TO QUIT CUTTING DOWN PREVIOUS QUIT ATTEMPTS?YES, MORE THAN 6 MONTHS AGO. COUNSELED THE PATIENT ON TOBACCO USE, CESSATION [id number]/16/2020 HOW MANY CIGARETTES A DAY DO YOU SMOKE?21-30 HOW SOON AFTER YOU WAKE UP DO YOU SMOKE YOUR FIRST CIGARETTE?6-30 MIN HOW OFTEN DO YOU SMOKE CIGARETTES?EVERY DAY PATIENT COUNSELED ON THE DANGERS OF TOBACCO USE AND URGED TO QUIT:02/18/2020 SMOKING CESSATION INFORMATION GIVEN11/02/2019 LATEX QUESTIONNAIRE LATEX ALLERGY : HAVE YOU EVER DEVELOPED ANY TYPE OF REACTION AFTER HANDLING LATEX PRODUCTS SUCH RUBBER GLOVES, CONDOMS, DIAPHRAGMS, BALLOONS, SOCKS, OR UNDERWEAR?NO LATEX ALLERGY : HAVE YOU EVER DEVELOPED ANY TYPE OF REACTION DURING OR AFTER DENTAL APPOINTMENT, VAGINAL/RECTAL EXAMINATION, SURGICAL PROCEDURE, OR ANY OTHER EXPOSURE?NO DATE ASKED : 01/26/2020 LATEX RISK : HAVE YOU EVER HAD ANY DIFFICULTY BREATHING OR HIVES AFTER EATING OR HANDLING ANY FRUITS, OR VEGETABLES; SUCH KIWI, BANANAS, STONE FRUITS, OR CHESTNUTSNO LATEX RISK : DO YOU HAVE A PREVIOUS PERSONAL HISTORY OF MORE THAN NINE SURGERIES, SPINA BIFIDA, OR REPEATED CATHERIZATIONS? NO LATEX RISK : ARE YOU FREQUENTLY EXPOSED TO LATEX PRODUCTS IN YOUR OCCUPATION?YES BMI CARE GOAL FOLLOW-UP ABOVE NORMAL BMI FOLLOW-UPEXERCISE PROMOTION: STRETCHING ALCOHOL SCREENING DID YOU HAVE A DRINK CONTAINING ALCOHOL IN THE PAST YEAR?NO POINTS0 INTERPRETATIONNEGATIVE RECREATIONAL DRUG USE DRUG USE?NO CAFFEINE CAFFEINE USE?NO SEXUAL HX HAD SEX IN THE LAST 12 MONTHS (VAGINAL, ORAL, OR ANAL)?YES WITHWOMEN ONLY PREVENTION STRATEGIES DISCUSSED:OTHER USE PROTECTION?NO HAVE YOU EVER HAD AN STD?NO HIV / HEP-C SCREENING HIV TEST OFFERED TO PATIENT:YES DATE OFFERED:10/08/2016 TEST ACCEPTED:YES HEP-C TEST OFFERED TO PATIENT:YES DATE OFFERED:10/08/2016 TEST ACCEPTED:YES LATTER DAY NO SAMARITAN BELIEFS THAT WOULD IMPACT HEALTH CARE. LANGUAGE [place]. EDUCATION COLLEGE. 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 EXERCISE: NO REGULAR EXERCISE. MARITAL STATUS: . NEW PATIENT PAIN DIARY TODAY'S VISIT 02/18/2020 PATIENT DESCRIBES PAIN :BURNING, HAVE IT ALL THE TIME, SHARP, STABBING, THROBBING, SORE, SHOOTING FROM 0-10, WHAT LEVEL IS YOUR PAIN TODAY?10 PRECIPITATING FACTORS WALKING AND STANDING. CAN ONLY STAND FOR 2-3 MINS THEN HE HAS TO SIT DOWN ALLEVIATING FACTORS SITTING OR LYING DOWN--GETTING OFF LEGS AND FEET IMPACT ON FUNCTION IS WORKING BUT IT LIMITS WHAT HE IS ABLE TO DO DO YOU TAKE ANY BLOOD THINNERS?NO ANY NEW PROBLEMS WITH MEDICINES OR NEW ALLERGIES GABAPENTIN, PT STATES THAT HE FEELS LIGHT-HEADED, CONFUSED, HARD TO FOCUS WHEN TAKING GABAPENTIN PAIN CLINIC PFS, CLERGY, PUBLIC HEALTH REFERRALS HAS THE PATIENT BEEN EDUCATED REGARDING HIS/HER PLAN OF CARE?YES HAS THE PATIENT BEEN EDUCATED REGARDING PAIN, THE RISK FOR PAIN, THE IMPORTANCE OF EFFECTIVE PAIN MANAGEMENT, AND THE PAIN ASSESSMENT PROCESS?YES ADVANCE DIRECTIVE ADVANCE DIRECTIVE DISCUSSED WITH PATIENT:YES 02/18/2020 PATIENT DOES NOT HAVE ANY ADVANCED DIRECTIVES AND DECLINED INFORMATION ON HCP AT THIS TIME. AD HOSPITALIZATION/MAJOR DIAGNOSTIC PROCEDURE DENIES PAST HOSPITALIZATION REVIEW OF SYSTEMS REVIEWED BY: PROVIDER: PATRICIA MCCOY MD . CONSTITUTIONAL: ANY CHANGE IN YOUR MEDICAL CONDITION? NO . CHILLS NO . FEVER NO . INFECTION: DO YOU HAVE NEW INFECTIONS? NO . DO YOU HAVE HISTORY OF MRSA? NO . MUSCULOSKELETAL: ANY NEW PATTERNS OF PAIN OR NUMBNESS? NO . GASTROENTEROLOGY: ANY NEW CHANGE IN BOWEL CONTROL? NO . GENITOURINARY: ANY NEW CHANGE IN BLADDER CONTROL? NO . IS THERE A CHANCE YOU COULD BE ? NO . HEMATOLOGY/LYMPH: DO YOU TAKE ANY BLOOD THINNERS? (FOR EXAMPLE- COUMADIN, PLAVIX, AGGRENOX, PLATEL, PRADAXA, OR XARELTO) NO . WHEN WAS YOUR LAST DOSE? DATE: TIME: . NEUROLOGY: HAVE YOU FALLEN IN THE PAST 12 MONTHS? NO . ANY NEW EXTREMITY NUMBNESS OR WEAKNESS? NO . CARDIOLOGY: DO YOU HAVE A PACEMAKER OR DEFIBRILLATOR? NO . RESPIRATORY: HAVE YOU BEEN SICK IN THE PAST WEEK? NO . FEVER NO . FLU LIKE SYMPTOMS? NO . COUGH NO . INTEGUMENTARY: DO YOU HAVE ANY RASHES OR OPEN SORES? NO . ALLERGIC/IMMUNO: ARE YOU ALLERGIC TO IV DYE? NO . ANY NEW ALLERGIES? NO . PSYCHIATRIC: DO YOU HAVE THOUGHTS OF HURTING YOURSELF OR SOMEONE ELSE? NO . ARE YOU ABUSED, NEGLECTED, OR IN AN UNSAFE ENVIRONMENT? NO . ENDOCRINOLOGY: ARE YOU DIABETIC? NO . OTHER: DO YOU NEED ANY PRESCRIPTIONS? NO . IF YES, PLEASE LIST: ____ . ANY NEW PROBLEMS WITH YOUR MEDICATIONS? NO . WHEN DID YOU LAST EAT? ____ . WHEN DID YOU LAST DRINK? ____ . WHAT DID YOU LAST DRINK? ____ . NAME OF PERSON DRIVING YOU HOME? ____ . DO YOU HAVE ANY OTHER QUESTIONS OR CONCERNS YES, TIZANIDINE WAS UNEFFETIVE. WAS WONDERING IF HE SHOULD HAVE A REPEAT MRI DUE TO PAIN INCREASING OVER THE PAST COUPLE OF MONTHS. IT IS GETTING TO THE POINT THAT HE ISN'T SURE IF HE IS GOING TO BE ABLE TO CONTINUE TO WORK . EXAMINATION GENERAL EXAMINATION: TELEMEDICINE VISIT VIA ZOOM. THE PATIENT IS ALERT, ORIENTED TIMES THREE AND COOPERATIVE. MRI OF THE LUMBAR SPINE DATED 06/13/2019 SHOWS DISC DEGENERATION AND NARROW SPINAL CANAL. ASSESSMENTS INTERVERTEBRAL DISC DISORDERS WITH RADICULOPATHY, LUMBAR REGION - M51.16 (PRIMARY) SPINAL STENOSIS, LUMBAR REGION WITHOUT NEUROGENIC CLAUDICATION - M48.061 TREATMENT INTERVERTEBRAL DISC DISORDERS WITH RADICULOPATHY, LUMBAR REGION CLINICAL NOTES: WE DISCUSSED SEVERAL ALTERNATIVES WITH MR. CASTANEDA REGARDING HIS TREATMENT OPTIONS AND CARE. I AM GOING TO START THE PATIENT ON CYMBALTA 30 MG CAPSULE ONCE A DAY. THE PATIENT WAS INFORMED THAT CYMBALTA IS AN ANTI-DEPRESSANT; HOWEVER, IT IS FDA APPROVED TO TREAT MUSCULOSKELETAL AND NEUROPATHIC PAIN. CYMBALTA SHOULD BE TAKEN WITH FOOD TO AVOID NAUSEA. FOR SOME PEOPLE, CYMBALTA WAKES THEM UP AND FOR SOME PEOPLE IT MAKES THEM TIRED. THE PATIENT SHOULD TRY IT IN THE MORNING; HOWEVER, IF IT MAKES THEM TIRED, THEY SHOULD TRY TO TAKE IT AT NIGHT. I WILL ALSO GIVE THE PATIENT A PRESCRIPTION FOR KETOROLAC 10 MG NEEDED FOR SEVERE PAIN. THE CONSTANT USE OF THIS MEDICATIONS CAN CAUSE GASTRIC PROBLEMS, SUCH GASTRITIS AND ULCERS, KIDNEY PROBLEMS, WHICH LEAD TO RENAL INSUFFICIENCY, AND CARDIAC EVENTS, SUCH MYOCARDIAL INFARCTIONS. THE PATIENT IS AWARE THAT THEY HAVE TO BE VERY CAREFUL WITH THE USE OF THIS MEDICATION. THE PATIENT REPORTS UNDERSTANDING THESE RISKS. THE PATIENT WILL TRY TO AVOID THE USE OF THIS MEDICATION MUCH POSSIBLE. THE PATIENT KNOWS TO STOP THE MEDICATION IMMEDIATELY IF HE EXPERIENCES ANY SIDE EFFECTS. THE PATIENT IS A CANDIDATE FOR AN EPIDURAL INJECTION ONCE WE ARE ABLE TO DO ELECTIVE PROCEDURES AGAIN. I WANT THE PATIENT TO COME IN TO SEE ME FOR A PHYSICAL EXAM ONCE HE IS ABLE TO. I SPOKE OVER 30 MINUTES WITH THE PATIENT TODAY. MORE THAN HALF OF THE TIME WAS DISCUSSING OPTIONS ON HIS CARE, DISCUSSING MEDICATION MANAGEMENT, CLARIFYING HOW THE PROCEDURE IS DONE AND ANSWERING QUESTIONS. THE PATIENT WILL FOLLOWUP WITH ME VIA TELEMEDICINE IN 2 WEEKS. THE PATIENT KNOWS TO CALL THE OFFICE IF HE HAS ANY QUESTIONS OR CONCERNS. THE PATIENT UNDERSTANDS AND IS IN AGREEMENT WITH THE TREATMENT PLAN. I, ROSE MARY PARK, DOCUMENTED THE ABOVE INFORMATION ACTING A SCRIBE FOR DR. MCCOY. I HAVE REVIEWED THE ABOVE DOCUMENT, WRITTEN BY ROSE MARY PARK, HOSPICE VOLUNTEER, AND I VERIFY THAT IT IS ACCURATE . OTHERS START CYMBALTA CAPSULE DELAYED RELEASE PARTICLES, 30 MG, 1 CAPSULE, ORALLY WITH FOOD FOR PAIN, ONCE A DAY MDD1, 30 DAY(S), 30, REFILLS 0 START KETOROLAC TROMETHAMINE TABLET, 10 MG, 1 TABLET WITH FOOD OR MILK NEEDED, ORALLY FOR PAIN, EVERY 8 HRS MDD3, 5 DAY(S), 15, REFILLS 0 NOTES: UNABLE TO DO V/S DUE TO VIRTUAL VISIT . DISPOSITION & COMMUNICATION FOLLOW UP F/UP DR. Nixon TELEMED 2 WEEKS (REASON: LOW BACK PAIN) ELECTRONICALLY SIGNED BY PATRICIA MCCOY MD, MD ON 02/23/2020 AT 03:47 PM EDT DISCLAIMER : THIS IS A VISIT SUMMARY EXTRACTED FROM THE [employer] CHART. IT IS NOT A COPY OF THE [employer] PROGRESS NOTE. MTDD
== END ==
LOC: M PAIN 10:15
PROVIDERS: ATTEND Anesthesiology
DX: M51.16 Intervertebral disc disorders with radiculopathy, lumbar region (principal); M48.061 Spinal stenosis, lumbar region without neurogenic claudication; G89.29 Other chronic pain; K21.9 Gastro-esophageal reflux disease without esophagitis; F17.210 Nicotine dependence, cigarettes, uncomplicated; Z88.0 Allergy status to penicillin; Z88.8 Allergy status to other drugs, medicaments and biological substances; Z91.030 Bee allergy status; Z79.899 Other long term (current) drug therapy

== ENCOUNTER → 2020-03-02 | Outpatient (CLI) | payer OTHER ==
--- NOTE | 2020-03-08 02:00 | ECWPNPC ---
PATIENT NAME: VIRIDIANA CASTANEDA : 1965 GENDER: MALE VISIT DATE: 03/02/2020 DISCHARGE DATE: 03/02/20 0950 VISIT LOCKED DATE TIME: PHYSICIAN: PATRICIA MCCOY MD RESOURCE: PATRICIA MCCOY MD REASON FOR APPOINTMENT 1. LOW BACK [phone] HISTORY OF PRESENT ILLNESS HISTORY OF PRESENT ILLNESS: PAIN THE PATIENT DESCRIBES THE PAIN... PERMISSION FROM PATIENT WAS RECEIVED TO DO TELEMEDICINE VISIT USING ZOOM APPLICATION. 54 YEAR OLD MALE PATIENT WITH A HISTORY OF CHRONIC LOW BACK PAIN. THE PATIENT DESCRIBES HIS PAIN ACHING, BURNING, HAVE IT ALL THE TIME, SHARP, STABBING, THROBBING, SORE, SHOOTING WITH A PAIN SCORE OF 6-9/10 DEPENDING ON PHYSICAL ACTIVITY. THE PATIENT STATES HIS LOW BACK PAIN IS STILL CONSTANT AND AFFECTING HIS ABILITY TO PERFORM HIS DAILY ACTIVITIES SUCH MOVING, WORKING AROUND HIS HOUSE, AND GROCERY SHOPPING. THE PATIENT SAYS HE STARTED USING CYMBALTA, BUT HE BEGAN EXPERIENCING NAUSEA FROM THE MEDICATION SO HE STOPPED USING IT. THE PATIENT SAYS TORADOL DID NOT HELP MUCH WITH HIS PAIN AND ALSO EXPERIENCED SIDE EFFECTS FROM IT. PATIENT DENIES UNEXPLAINABLE WEIGHT LOSS, FEVER, CHILLS, NEW CHANGES ON HIS URINARY OR BOWEL CONTROL. FALL RISK SCREENING: SCREENING :NO FALLS REPORTED IN THE LAST YEAR CURRENT MEDICATIONS TAKING NEXIUM 40 MG CAPSULE DELAYED RELEASE 1 CAPSULE ORALLY ONCE A DAY TAKING NITROGLYCERIN 0.4 MG TABLET SUBLINGUAL DIRECTED SUBLINGUAL DAILY TAKING FLONASE ALLERGY RELIEF 50 MCG/ACT SUSPENSION 1 SPRAY IN EACH NOSTRIL NASALLY ONCE A DAY NEEDED TAKING ADRENACLICK 0.3 MG/0.3ML SOLUTION AUTO-INJECTOR DIRECTED INJECTION AT ONSET OF BEE STING AND THEN PROCEED TO ER FOR MONITORING, NOTES: KEEP ONE AT HOME AND ONE IN THE CAR. TAKING TIZANIDINE HCL 4 MG TABLET 1 TABLET NEEDED ORALLY BEFORE BEDTIME MAY REPEAT IN 4 HRS NOT-TAKING CYCLOBENZAPRINE HCL 10 MG TABLET 1 TAB ORALLY THREE TIMES DAILY NEEDED NOT-TAKING NAPROXEN 500 MG TABLET 1 TABLET WITH FOOD OR MILK NEEDED ORALLY EVERY 12 HRS NOT-TAKING CYMBALTA 30 MG CAPSULE DELAYED RELEASE PARTICLES 1 CAPSULE ORALLY WITH FOOD FOR PAIN ONCE A DAY MDD1 NOT-TAKING KETOROLAC TROMETHAMINE 10 MG TABLET 1 TABLET WITH FOOD OR MILK NEEDED ORALLY FOR PAIN EVERY 8 HRS MDD3 NOT-TAKING GABAPENTIN 300 MG CAPSULE 2 CAPSULE ORALLY THREE TIMES DAILY, NOTES: NOT USED IN 3 WEEKS NAUSEATED NOT-TAKING CYANOCOBALAMIN 1000 MCG/ML SOLUTION 1 ML INJECTION NOT-TAKING GLUCOMETER DIRECTED CHECK SUGAR DAILY NOT-TAKING BLOOD GLUCOSE TEST - STRIP DIRECTED IN VITRO DAILY ON SIDE OF FINGER. DX: E11.9 NOT-TAKING LANCETS - MISCELLANEOUS DIRECTED ON SIDE OF FINGER DAILY BEFORE BREAKFAST. DX: E11.9 MEDICATION LIST REVIEWED AND RECONCILED WITH THE PATIENT PAST MEDICAL HISTORY GERD LOW BACK PAIN HTN-PT STATES B/P WAS ONLY HIGH ONCE ALLERGIES PENICILLIN (FOR ALLERGIES USE ONLY): HIVES - ALLERGY BEE STINGS : ANAPHYLAXIS - ALLERGY GABAPENTIN: HEADACHE, ABD. PAIN, TROUBLE FOCUSING AND MAKES SHAKEY - SIDE EFFECTS SURGICAL HISTORY LEFT INGUINAL HERNIA REPAIR FROM [place] 1999 RIGHT KNEE ARTHROPLASTY 2001 FAMILY HISTORY FATHER: 75 YRS, HEART DISEASE, HIGH CHOLESTEROL, DIAGNOSED WITH HYPERTENSION MOTHER: ALIVE 75 YRS, DOES NOT KNOW ANY MEDICAL HISTORY ON HER BROTHER: ALIVE 51 YRS, UNKNOWN SISTER: ALIVE 53 YRS, HEALTHY 1 BROTHER(S) , 3 SISTER(S) . 2DAUGHTER(S) - HEALTHY. SOCIAL HISTORY GENERAL: TOBACCO USE ARE YOU A:CURRENT SMOKER ARE YOU INTERESTED IN QUITTING?READY TO QUIT CUTTING DOWN PREVIOUS QUIT ATTEMPTS?YES, MORE THAN 6 MONTHS AGO. COUNSELED THE PATIENT ON TOBACCO USE, CESSATION [id number]/29/2020 HOW MANY CIGARETTES A DAY DO YOU SMOKE?21-30 HOW SOON AFTER YOU WAKE UP DO YOU SMOKE YOUR FIRST CIGARETTE?6-30 MIN HOW OFTEN DO YOU SMOKE CIGARETTES?EVERY DAY PATIENT COUNSELED ON THE DANGERS OF TOBACCO USE AND URGED TO QUIT:02/18/2020 SMOKING CESSATION INFORMATION GIVEN11/02/2019 LATEX QUESTIONNAIRE LATEX ALLERGY : HAVE YOU EVER DEVELOPED ANY TYPE OF REACTION AFTER HANDLING LATEX PRODUCTS SUCH RUBBER GLOVES, CONDOMS, DIAPHRAGMS, BALLOONS, SOCKS, OR UNDERWEAR?NO LATEX ALLERGY : HAVE YOU EVER DEVELOPED ANY TYPE OF REACTION DURING OR AFTER DENTAL APPOINTMENT, VAGINAL/RECTAL EXAMINATION, SURGICAL PROCEDURE, OR ANY OTHER EXPOSURE?NO DATE ASKED : 01/26/2020 LATEX RISK : HAVE YOU EVER HAD ANY DIFFICULTY BREATHING OR HIVES AFTER EATING OR HANDLING ANY FRUITS, OR VEGETABLES; SUCH KIWI, BANANAS, STONE FRUITS, OR CHESTNUTSNO LATEX RISK : DO YOU HAVE A PREVIOUS PERSONAL HISTORY OF MORE THAN NINE SURGERIES, SPINA BIFIDA, OR REPEATED CATHERIZATIONS? NO LATEX RISK : ARE YOU FREQUENTLY EXPOSED TO LATEX PRODUCTS IN YOUR OCCUPATION?YES BMI CARE GOAL FOLLOW-UP ABOVE NORMAL BMI FOLLOW-UPEXERCISE PROMOTION: STRETCHING ALCOHOL SCREENING DID YOU HAVE A DRINK CONTAINING ALCOHOL IN THE PAST YEAR?NO POINTS0 INTERPRETATIONNEGATIVE RECREATIONAL DRUG USE DRUG USE?NO CAFFEINE CAFFEINE USE?NO SEXUAL HX HAD SEX IN THE LAST 12 MONTHS (VAGINAL, ORAL, OR ANAL)?YES WITHWOMEN ONLY PREVENTION STRATEGIES DISCUSSED:OTHER USE PROTECTION?NO HAVE YOU EVER HAD AN STD?NO HIV / HEP-C SCREENING HIV TEST OFFERED TO PATIENT:YES DATE OFFERED:10/08/2016 TEST ACCEPTED:YES HEP-C TEST OFFERED TO PATIENT:YES DATE OFFERED:10/08/2016 TEST ACCEPTED:YES MU-ISM NO RESTORATION BELIEFS THAT WOULD IMPACT HEALTH CARE. LANGUAGE TURKISH. EDUCATION COLLEGE. 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 EXERCISE: NO REGULAR EXERCISE. MARITAL STATUS: . NEW PATIENT PAIN DIARY TODAY'S VISIT 03/02/2020 PATIENT DESCRIBES PAIN :ACHING, BURNING, HAVE IT ALL THE TIME, SHARP, STABBING, THROBBING, SORE, SHOOTING FROM 0-10, WHAT LEVEL IS YOUR PAIN TODAY?9 PRECIPITATING FACTORS WALKING AND STANDING. CAN ONLY STAND FOR 2-3 MINS THEN HE HAS TO SIT DOWN ALLEVIATING FACTORS SITTING OR LYING DOWN--GETTING OFF LEGS AND FEET IMPACT ON FUNCTION IS WORKING BUT IT LIMITS WHAT HE IS ABLE TO DO DO YOU TAKE ANY BLOOD THINNERS?NO ANY NEW PROBLEMS WITH MEDICINES OR NEW ALLERGIES GABAPENTIN, PT STATES THAT HE FEELS LIGHT-HEADED, CONFUSED, HARD TO FOCUS WHEN TAKING GABAPENTIN PAIN CLINIC PFS, CLERGY, PUBLIC HEALTH REFERRALS HAS THE PATIENT BEEN EDUCATED REGARDING HIS/HER PLAN OF CARE?YES HAS THE PATIENT BEEN EDUCATED REGARDING PAIN, THE RISK FOR PAIN, THE IMPORTANCE OF EFFECTIVE PAIN MANAGEMENT, AND THE PAIN ASSESSMENT PROCESS?YES ADVANCE DIRECTIVE ADVANCE DIRECTIVE DISCUSSED WITH PATIENT:YES PATIENT DOES NOT HAVE ANY ADVANCED DIRECTIVES AND DECLINED INFORMATION ON HCP AT THIS TIME. HOSPITALIZATION/MAJOR DIAGNOSTIC PROCEDURE NO HOSPITALIZATION HISTORY. REVIEW OF SYSTEMS REVIEWED BY: PROVIDER: PATRICIA MCCOY MD . CONSTITUTIONAL: ANY CHANGE IN YOUR MEDICAL CONDITION? NO . CHILLS NO . FEVER NO . INFECTION: DO YOU HAVE NEW INFECTIONS? NO . DO YOU HAVE HISTORY OF MRSA? NO . MUSCULOSKELETAL: ANY NEW PATTERNS OF PAIN OR NUMBNESS? NO . GASTROENTEROLOGY: ANY NEW CHANGE IN BOWEL CONTROL? NO . GENITOURINARY: ANY NEW CHANGE IN BLADDER CONTROL? NO . IS THERE A CHANCE YOU COULD BE ? NO . HEMATOLOGY/LYMPH: DO YOU TAKE ANY BLOOD THINNERS? (FOR EXAMPLE- COUMADIN, PLAVIX, AGGRENOX, PLATEL, PRADAXA, OR XARELTO) NO . WHEN WAS YOUR LAST DOSE? DATE: TIME: . NEUROLOGY: HAVE YOU FALLEN IN THE PAST 12 MONTHS? NO . ANY NEW EXTREMITY NUMBNESS OR WEAKNESS? NO . CARDIOLOGY: DO YOU HAVE A PACEMAKER OR DEFIBRILLATOR? NO . RESPIRATORY: HAVE YOU BEEN SICK IN THE PAST WEEK? NO . FEVER NO . FLU LIKE SYMPTOMS? NO . COUGH NO . INTEGUMENTARY: DO YOU HAVE ANY RASHES OR OPEN SORES? NO . ALLERGIC/IMMUNO: ARE YOU ALLERGIC TO IV DYE? NO . ANY NEW ALLERGIES? NO . PSYCHIATRIC: DO YOU HAVE THOUGHTS OF HURTING YOURSELF OR SOMEONE ELSE? NO . ARE YOU ABUSED, NEGLECTED, OR IN AN UNSAFE ENVIRONMENT? NO . ENDOCRINOLOGY: ARE YOU DIABETIC? NO . OTHER: DO YOU NEED ANY PRESCRIPTIONS? NO . IF YES, PLEASE LIST: ____ . ANY NEW PROBLEMS WITH YOUR MEDICATIONS? NO . WHEN DID YOU LAST EAT? ____ . WHEN DID YOU LAST DRINK? ____ . WHAT DID YOU LAST DRINK? ____ . NAME OF PERSON DRIVING YOU HOME? ____ . DO YOU HAVE ANY OTHER QUESTIONS OR CONCERNS NO . EXAMINATION GENERAL EXAMINATION: TELEMEDICINE USING ZOOM APPLICATION. PATIENT IS ALERT O X 3 AND COOPERATIVE. MRI OF THE LUMBAR SPINE DONE ON 06/13/2019 SHOWS FACET ARTHROPATHY CHANGES. ASSESSMENTS MYALGIA, OTHER SITE - M79.18 (PRIMARY) TREATMENT MYALGIA, OTHER SITE CLINICAL NOTES: WE DISCUSSED SEVERAL ISSUES WITH MR. CASTANEDA' PAIN MANAGEMENT CASE. I DISCUSSED WITH THE PATIENT ABOUT INCREASING THE CYMBALTA TO HELP WITH HIS PAIN, HOWEVER THE PATIENT STATES HE HAS BEEN EXPERIENCING SIDE EFFECTS FROM THE MEDICATION, INCLUDING NAUSEA, THEREFORE HE HAD STOPPED TAKING IT. THE PATIENT IS IN A LOT OF PAIN. I WOULD LIKE TO EVALUATE THE PATIENT PERSONALLY IN THE CLINIC AND CONSIDER OPTIONS THAT MAY INCLUDE THE TPI PREVIOUSLY REQUESTED. I DISCUSSED WITH THE PATIENT ABOUT NOT USING STEROIDS AND ONLY A LOCAL ANESTHETIC DUE TO THE RISK OF IMMUNOSUPPRESSION FROM STEROIDS. INSTRUCTIONS WERE GIVEN, QUESTIONS WERE ANSWERED, PATIENT REPORTS UNDERSTANDING AND AGREES WITH THE PLAN. I, RADHIKA PAK, DOCUMENTED THE ABOVE INFORMATION ACTING A SCRIBE FOR DR. MCCOY. I HAVE REVIEWED THE ABOVE DOCUMENT, WRITTEN BY RADHIKA PAK SCRIBE AND I VERIFY THAT IT IS ACCURATE. . DISPOSITION & COMMUNICATION FOLLOW UP 2 - 3 DAYS (REASON: TOMM @ 2:[address] Santoyo PLEASE CHECK TPI APPROVED IN JANUARY IS STILL OK) ELECTRONICALLY SIGNED BY PATRICIA MCCOY MD, MD ON 03/07/2020 AT 01:14 PM EDT DISCLAIMER : THIS IS A VISIT SUMMARY EXTRACTED FROM THE [employer] CHART. IT IS NOT A COPY OF THE [employer] PROGRESS NOTE. CURTIS
== END ==
LOC: M PAIN 14:30
PROVIDERS: ATTEND Anesthesiology
DX: M79.18 Myalgia, other site (principal); K21.9 Gastro-esophageal reflux disease without esophagitis; F17.210 Nicotine dependence, cigarettes, uncomplicated; Z88.0 Allergy status to penicillin; Z88.8 Allergy status to other drugs, medicaments and biological substances; Z91.030 Bee allergy status; Z79.899 Other long term (current) drug therapy

== ENCOUNTER → 2020-03-03 | Outpatient (CLI) | payer OTHER ==
[~2020-03-03] MED LIST changes: +BUPIVACAINE HCL 0.25% 10ML VIAL As Ordered ONE; -BUPIVACAINE HCL 0.25% 30 ML VIAL As Ordered ONE; +BUPIVACAINE HCL 0.25% 30ML VIAL As Ordered ONE; -ISOVUE-M 300 61% 15ML VIAL (Q9967) As Ordered ONE; -LIDOCAINE 1% SDV INJ 30 ML VIAL As Ordered ONE
--- NOTE | 2020-03-09 00:02 | ECWPNPC ---
PATIENT NAME: VIRIDIANA CASTANEDA : 1965 GENDER: MALE VISIT DATE: 03/03/2020 DISCHARGE DATE: 03/03/20 1635 VISIT LOCKED DATE TIME: PHYSICIAN: PATRICIA MCCOY MD RESOURCE: PATRICIA MCCOY MD REASON FOR APPOINTMENT 1. TPI-NO STEROID HISTORY OF PRESENT ILLNESS HISTORY OF PRESENT ILLNESS: PAIN THE PATIENT DESCRIBES THE PAIN... FALL RISK SCREENING: SCREENING :NO FALLS REPORTED IN THE LAST YEAR CURRENT MEDICATIONS TAKING NEXIUM 40 MG CAPSULE DELAYED RELEASE 1 CAPSULE ORALLY ONCE A DAY, NOTES: 03/03 615 TAKING NITROGLYCERIN 0.4 MG TABLET SUBLINGUAL DIRECTED SUBLINGUAL DAILY, NOTES: NEVER TAKING FLONASE ALLERGY RELIEF 50 MCG/ACT SUSPENSION 1 SPRAY IN EACH NOSTRIL NASALLY ONCE A DAY NEEDED, NOTES: 3 WEEKS AGO TAKING ADRENACLICK 0.3 MG/0.3ML SOLUTION AUTO-INJECTOR DIRECTED INJECTION AT ONSET OF BEE STING AND THEN PROCEED TO ER FOR MONITORING, NOTES: KEEP ONE AT HOME AND ONE IN THE CAR. TAKING TIZANIDINE HCL 4 MG TABLET 1 TABLET NEEDED ORALLY BEFORE BEDTIME MAY REPEAT IN 4 HRS, NOTES: NONE RECENT NOT-TAKING CYCLOBENZAPRINE HCL 10 MG TABLET 1 TAB ORALLY THREE TIMES DAILY NEEDED NOT-TAKING NAPROXEN 500 MG TABLET 1 TABLET WITH FOOD OR MILK NEEDED ORALLY EVERY 12 HRS NOT-TAKING CYMBALTA 30 MG CAPSULE DELAYED RELEASE PARTICLES 1 CAPSULE ORALLY WITH FOOD FOR PAIN ONCE A DAY MDD1 NOT-TAKING KETOROLAC TROMETHAMINE 10 MG TABLET 1 TABLET WITH FOOD OR MILK NEEDED ORALLY FOR PAIN EVERY 8 HRS MDD3 NOT-TAKING GABAPENTIN 300 MG CAPSULE 2 CAPSULE ORALLY THREE TIMES DAILY, NOTES: NOT USED IN 3 WEEKS NAUSEATED NOT-TAKING CYANOCOBALAMIN 1000 MCG/ML SOLUTION 1 ML INJECTION DISCONTINUED GLUCOMETER DIRECTED CHECK SUGAR DAILY DISCONTINUED BLOOD GLUCOSE TEST - STRIP DIRECTED IN VITRO DAILY ON SIDE OF FINGER. DX: E11.9 DISCONTINUED LANCETS - MISCELLANEOUS DIRECTED ON SIDE OF FINGER DAILY BEFORE BREAKFAST. DX: E11.9 MEDICATION LIST REVIEWED AND RECONCILED WITH THE PATIENT PAST MEDICAL HISTORY GERD LOW BACK PAIN HTN-PT STATES B/P WAS ONLY HIGH ONCE ALLERGIES PENICILLIN (FOR ALLERGIES USE ONLY): HIVES - ALLERGY BEE STINGS : ANAPHYLAXIS - ALLERGY GABAPENTIN: HEADACHE, ABD. PAIN, TROUBLE FOCUSING AND MAKES SHAKEY - SIDE EFFECTS SURGICAL HISTORY LEFT INGUINAL HERNIA REPAIR FROM [facility] 1999 RIGHT KNEE ARTHROPLASTY 2002 FAMILY HISTORY FATHER: 75 YRS, HEART DISEASE, HIGH CHOLESTEROL, DIAGNOSED WITH HYPERTENSION MOTHER: ALIVE 75 YRS, DOES NOT KNOW ANY MEDICAL HISTORY ON HER BROTHER: ALIVE 51 YRS, UNKNOWN SISTER: ALIVE 53 YRS, HEALTHY 1 BROTHER(S) , 3 SISTER(S) . 2DAUGHTER(S) - HEALTHY. SOCIAL HISTORY GENERAL: TOBACCO USE ARE YOU A:CURRENT SMOKER ARE YOU INTERESTED IN QUITTING?READY TO QUIT CUTTING DOWN PREVIOUS QUIT ATTEMPTS?YES, MORE THAN 6 MONTHS AGO. COUNSELED THE PATIENT ON TOBACCO USE, CESSATION [id number]/29/2020 HOW MANY CIGARETTES A DAY DO YOU SMOKE?6-10 HOW SOON AFTER YOU WAKE UP DO YOU SMOKE YOUR FIRST CIGARETTE?6-30 MIN HOW OFTEN DO YOU SMOKE CIGARETTES?EVERY DAY PATIENT COUNSELED ON THE DANGERS OF TOBACCO USE AND URGED TO QUIT:03/03/2020 SMOKING CESSATION INFORMATION GIVEN11/02/2019 LATEX QUESTIONNAIRE LATEX ALLERGY : HAVE YOU EVER DEVELOPED ANY TYPE OF REACTION AFTER HANDLING LATEX PRODUCTS SUCH RUBBER GLOVES, CONDOMS, DIAPHRAGMS, BALLOONS, SOCKS, OR UNDERWEAR?NO LATEX ALLERGY : HAVE YOU EVER DEVELOPED ANY TYPE OF REACTION DURING OR AFTER DENTAL APPOINTMENT, VAGINAL/RECTAL EXAMINATION, SURGICAL PROCEDURE, OR ANY OTHER EXPOSURE?NO DATE ASKED : 01/26/2020 LATEX RISK : HAVE YOU EVER HAD ANY DIFFICULTY BREATHING OR HIVES AFTER EATING OR HANDLING ANY FRUITS, OR VEGETABLES; SUCH KIWI, BANANAS, STONE FRUITS, OR CHESTNUTSNO LATEX RISK : DO YOU HAVE A PREVIOUS PERSONAL HISTORY OF MORE THAN NINE SURGERIES, SPINA BIFIDA, OR REPEATED CATHERIZATIONS? NO LATEX RISK : ARE YOU FREQUENTLY EXPOSED TO LATEX PRODUCTS IN YOUR OCCUPATION?YES BMI CARE GOAL FOLLOW-UP ABOVE NORMAL BMI FOLLOW-UPEXERCISE PROMOTION: STRETCHING ALCOHOL SCREENING DID YOU HAVE A DRINK CONTAINING ALCOHOL IN THE PAST YEAR?NO POINTS0 INTERPRETATIONNEGATIVE RECREATIONAL DRUG USE DRUG USE?NO CAFFEINE CAFFEINE USE?NO SEXUAL HX HAD SEX IN THE LAST 12 MONTHS (VAGINAL, ORAL, OR ANAL)?YES WITHWOMEN ONLY PREVENTION STRATEGIES DISCUSSED:OTHER USE PROTECTION?NO HAVE YOU EVER HAD AN STD?NO HIV / HEP-C SCREENING HIV TEST OFFERED TO PATIENT:YES DATE OFFERED:10/08/2016 TEST ACCEPTED:YES HEP-C TEST OFFERED TO PATIENT:YES DATE OFFERED:10/08/2016 TEST ACCEPTED:YES [place]HER[place] NO JAINISM BELIEFS THAT WOULD IMPACT HEALTH CARE. LANGUAGE HEBREW. EDUCATION COLLEGE. 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 EXERCISE: NO REGULAR EXERCISE. MARITAL STATUS: . NEW PATIENT PAIN DIARY TODAY'S VISIT 03/03/2020 PATIENT DESCRIBES PAIN :ACHING, BURNING, HAVE IT ALL THE TIME, SHARP, STABBING, THROBBING, SORE, SHOOTING FROM 0-10, WHAT LEVEL IS YOUR PAIN TODAY?9 PRECIPITATING FACTORS WALKING AND STANDING. CAN ONLY STAND FOR 2-3 MINS THEN HE HAS TO SIT DOWN ALLEVIATING FACTORS SITTING OR LYING DOWN--GETTING OFF LEGS AND FEET IMPACT ON FUNCTION IS WORKING BUT IT LIMITS WHAT HE IS ABLE TO DO PAIN CLINIC PFS, CLERGY, PUBLIC HEALTH REFERRALS HAS THE PATIENT BEEN EDUCATED REGARDING HIS/HER PLAN OF CARE?YES HAS THE PATIENT BEEN EDUCATED REGARDING PAIN, THE RISK FOR PAIN, THE IMPORTANCE OF EFFECTIVE PAIN MANAGEMENT, AND THE PAIN ASSESSMENT PROCESS?YES ADVANCE DIRECTIVE ADVANCE DIRECTIVE DISCUSSED WITH PATIENT:YES 03/03/20 PATIENT DOES NOT HAVE ANY ADVANCED DIRECTIVES AND DECLINED INFORMATION ON HCP AT THIS TIME. AD HOSPITALIZATION/MAJOR DIAGNOSTIC PROCEDURE NO HOSPITALIZATION HISTORY. REVIEW OF SYSTEMS REVIEWED BY: PROVIDER: PATRICIA MCCOY MD . CONSTITUTIONAL: ANY CHANGE IN YOUR MEDICAL CONDITION? NO . CHILLS NO . FEVER NO . INFECTION: DO YOU HAVE NEW INFECTIONS? NO . DO YOU HAVE HISTORY OF MRSA? NO . MUSCULOSKELETAL: ANY NEW PATTERNS OF PAIN OR NUMBNESS? NO . GASTROENTEROLOGY: ANY NEW CHANGE IN BOWEL CONTROL? NO . GENITOURINARY: ANY NEW CHANGE IN BLADDER CONTROL? NO . IS THERE A CHANCE YOU COULD BE ? NO . HEMATOLOGY/LYMPH: DO YOU TAKE ANY BLOOD THINNERS? (FOR EXAMPLE- COUMADIN, PLAVIX, AGGRENOX, PLATEL, PRADAXA, OR XARELTO) NO . WHEN WAS YOUR LAST DOSE? DATE: TIME: . NEUROLOGY: HAVE YOU FALLEN IN THE PAST 12 MONTHS? NO . ANY NEW EXTREMITY NUMBNESS OR WEAKNESS? NO . CARDIOLOGY: DO YOU HAVE A PACEMAKER OR DEFIBRILLATOR? NO . RESPIRATORY: HAVE YOU BEEN SICK IN THE PAST WEEK? NO . FEVER NO . FLU LIKE SYMPTOMS? NO . COUGH NO . INTEGUMENTARY: DO YOU HAVE ANY RASHES OR OPEN SORES? NO . ALLERGIC/IMMUNO: ARE YOU ALLERGIC TO IV DYE? NO . ANY NEW ALLERGIES? NO . PSYCHIATRIC: DO YOU HAVE THOUGHTS OF HURTING YOURSELF OR SOMEONE ELSE? NO . ARE YOU ABUSED, NEGLECTED, OR IN AN UNSAFE ENVIRONMENT? NO . ENDOCRINOLOGY: ARE YOU DIABETIC? NO . OTHER: DO YOU NEED ANY PRESCRIPTIONS? NO . IF YES, PLEASE LIST: ____ . ANY NEW PROBLEMS WITH YOUR MEDICATIONS? NO . WHEN DID YOU LAST EAT? 03/03 730 . WHEN DID YOU LAST DRINK? 03/03 730 . WHAT DID YOU LAST DRINK? V8, ICE TEA . NAME OF PERSON DRIVING YOU HOME? ELVIA- . DO YOU HAVE ANY OTHER QUESTIONS OR CONCERNS NO . VITAL SIGNS WT 244 LBS, HT 67 IN, BMI 38.21 INDEX, BP 127/81 MM HG, HR 87 /MIN, RR 18 /MIN, TEMP 98.4 F, OXYGEN SAT % 96%, SAFE IN ENV? (Y/N) Y, NA INITIALS AW 1413, REVIEWED BY: AD. ASSESSMENTS MYALGIA, OTHER SITE - M79.18 (PRIMARY) PROCEDURES PN TRIGGER POINT INJECTION NO STEROIDS DATE OF PROCEDURE : PRE PROCEDURE DIAGNOSIS 1. MYALGIA 2. PAIN AT BILATERAL LOWER BACK AREA POST PROCEDURE DIAGNOSIS 1. MYALGIA 2. PAIN AT BILATERAL LOWER BACK AREA PROCEDURE TRIGGER POINT INJECTION AT BILATERAL LOWER BACK AREA SURGEON DR. PATRICIA MCCOY GASKET NOTCHER NONE ANESTHESIA LOCAL PRE PROCEDURE NOTE 54-YEAR-OLD PATIENT WITH HISTORY OF CHRONIC PAIN AT BILATERAL LOWER BACK AREA. I EVALUATED THE PATIENT AND REVIEWED THE CHART. THERE IS EVIDENCE OF BANDS OF TISSUE WITH RESTRICTION OF MOVEMENT AND PRESENCE OF TRIGGER POINT AT THE BILATERAL LOWER BACK AREA. I WENT OVER THE RISKS, ALTERNATIVES, AND BENEFITS ASSOCIATED WITH THIS PROCEDURE. THE PATIENT WOULD LIKE TO PROCEED AND GAVE CONSENT TO PERFORM THE PROCEDURE. THE PATIENT DENIES UNEXPLAINABLE WEIGHT LOSS, FEVER, CHILLS, OR NEW CHANGES IN URINARY OR BOWEL CONTROL DESCRIPTION OF PROCEDURE THE PATIENT WAS BROUGHT TO THE PROCEDURE ROOM AND PLACED IN THE SITTING POSITION. THE AREA WAS CLEANED WITH ALCOHOL. THE PROCEDURE WAS DONE USING ASEPTIC STERILE TECHNIQUES. I CHECKED LATERALITY AND THE LEVEL WHERE THE PROCEDURE WAS GOING TO BE PERFORMED WITH THE PATIENT AND THE SUPPORTING STAFF AT THE MOMENT OF THE TIME OUT IN THE PROCEDURE ROOM. USING A 25-GAUGE NEEDLE, TRIGGER POINTS WERE INJECTED INTO THE BILATERAL LOWER BACK AREA WITH A TOTAL OF 40 ML OF BUPIVACAINE 0.25%. AGREED WITH THE PATIENT THE PROCEDURE WAS DONE WITHOUT STEROIDS. THERE WAS NO EVIDENCE OF BLOOD, PARESTHESIA OR CEREBROSPINAL FLUID DURING THE PROCEDURE. THE PATIENT WAS SENT TO THE RECOVERY ROOM. THE PATIENT WAS MOVING THE EXTREMITIES AND DOING WELL. THERE WAS NO COMPLICATION DURING THE PROCEDURE POST PROCEDURE NOTE IF THE PATIENT DOES NOT RECEIVE BENEFIT FROM THIS INJECTION, WE CAN TRY TO DO A TRIGGER POINT INJECTION WITH STEROIDS. THE PATIENT HAS ALREADY RECEIVED A LUMBAR EPIDURAL THAT DID NOT HELP. WE CAN CONSIDER DOING A TRANSFORAMINAL EPIDURAL INJECTION. THE PATIENT WILL BE SEEN IN A FOLLOW UP IN THE NEXT FEW WEEKS. INSTRUCTIONS WERE GIVEN, QUESTIONS WERE ANSWERED, AND THE PATIENT EXPRESSED UNDERSTANDING AND AGREED WITH THE PLAN. I, ROSE MARY PARK, DOCUMENTED THE ABOVE INFORMATION ACTING A SCRIBE FOR DR. MCCOY. 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 IT IS NOT A COPY OF THE [employer] PROGRESS NOTE. MTDD
== END ==
LOC: M PAIN 14:15
PROVIDERS: ATTEND Anesthesiology
DX: M79.18 Myalgia, other site (principal); K21.9 Gastro-esophageal reflux disease without esophagitis; F17.210 Nicotine dependence, cigarettes, uncomplicated; Z88.0 Allergy status to penicillin; Z88.8 Allergy status to other drugs, medicaments and biological substances; Z91.030 Bee allergy status; Z79.899 Other long term (current) drug therapy

== ENCOUNTER → 2020-03-17 | Outpatient (CLI) | payer OTHER ==
--- NOTE | 2020-03-22 02:09 | ECWPNPC ---
PATIENT NAME: VIRIDIANA CASTANEDA : 1965 GENDER: MALE VISIT DATE: 03/17/2020 DISCHARGE DATE: 03/17/20 0845 VISIT LOCKED DATE TIME: PHYSICIAN: DAVIAN BAKER RESOURCE: DAVIAN BAKER REASON FOR APPOINTMENT 1. POST TPI [phone] HISTORY OF PRESENT ILLNESS HISTORY OF PRESENT ILLNESS: PATIENT IS AGREEABLE TO TELEMED VISIT TODAY. REPORTING SEVERE INCREASE IN LOW BACK PAIN. THIS HAS BEEN GOING ON FOR A FEW MONTHS. RATING PAIN LEVEL A 10 OVER 10 VAS. REPORTING NEW ONSET OF LUMBAR RADICULAR SYMPTOMS INDICATIVE OF NERVE IMPINGEMENT. REPORTING THE PAIN HAS PROGRESSED SINCE LAST MRI. HAS TRIALED MULTIPLE PROCEDURES HERE WITHOUT IMPROVEMENT AND SOME AGGRAVATION IN HIS PAIN. HAS HAD ADVERSE EFFECTS WITH MEDICATION TRIALS. DENIES CHANGES IN BOWEL OR BLADDER FUNCTION. NO RECENT FEVER, ILLNESS OR WEIGHT LOSS. PAIN THE PATIENT DESCRIBES THE PAIN... FALL RISK SCREENING: SCREENING :NO FALLS REPORTED IN THE LAST YEAR CURRENT MEDICATIONS TAKING NEXIUM 40 MG CAPSULE DELAYED RELEASE 1 CAPSULE ORALLY ONCE A DAY TAKING NITROGLYCERIN 0.4 MG TABLET SUBLINGUAL DIRECTED SUBLINGUAL DAILY TAKING FLONASE ALLERGY RELIEF 50 MCG/ACT SUSPENSION 1 SPRAY IN EACH NOSTRIL NASALLY ONCE A DAY NEEDED TAKING ADRENACLICK 0.3 MG/0.3ML SOLUTION AUTO-INJECTOR DIRECTED INJECTION AT ONSET OF BEE STING AND THEN PROCEED TO ER FOR MONITORING, NOTES: KEEP ONE AT HOME AND ONE IN THE CAR. TAKING TIZANIDINE HCL 4 MG TABLET 1 TABLET NEEDED ORALLY BEFORE BEDTIME MAY REPEAT IN 4 HRS TAKING IBUPROFEN 800 MG TABLET 1 TABLET WITH FOOD OR MILK NEEDED ORALLY THREE TIMES A DAY TAKING CYCLOBENZAPRINE HCL 10 MG TABLET 1 TAB ORALLY THREE TIMES DAILY NEEDED NOT-TAKING NAPROXEN 500 MG TABLET 1 TABLET WITH FOOD OR MILK NEEDED ORALLY EVERY 12 HRS NOT-TAKING CYMBALTA 30 MG CAPSULE DELAYED RELEASE PARTICLES 1 CAPSULE ORALLY WITH FOOD FOR PAIN ONCE A DAY MDD1 NOT-TAKING KETOROLAC TROMETHAMINE 10 MG TABLET 1 TABLET WITH FOOD OR MILK NEEDED ORALLY FOR PAIN EVERY 8 HRS MDD3 NOT-TAKING GABAPENTIN 300 MG CAPSULE 2 CAPSULE ORALLY THREE TIMES DAILY, NOTES: NOT USED IN 3 WEEKS NAUSEATED NOT-TAKING CYANOCOBALAMIN 1000 MCG/ML SOLUTION 1 ML INJECTION MEDICATION LIST REVIEWED AND RECONCILED WITH THE PATIENT PAST MEDICAL HISTORY GERD LOW BACK PAIN HTN-PT STATES B/P WAS ONLY HIGH ONCE ALLERGIES PENICILLIN (FOR ALLERGIES USE ONLY): HIVES - ALLERGY BEE STINGS : ANAPHYLAXIS - ALLERGY GABAPENTIN: HEADACHE, ABD. PAIN, TROUBLE FOCUSING AND MAKES SHAKEY - SIDE EFFECTS SURGICAL HISTORY LEFT INGUINAL HERNIA REPAIR FROM 1999 RIGHT KNEE ARTHROPLASTY 2001 FAMILY HISTORY FATHER: 75 YRS, HEART DISEASE, HIGH CHOLESTEROL, DIAGNOSED WITH HYPERTENSION MOTHER: ALIVE 75 YRS, DOES NOT KNOW ANY MEDICAL HISTORY ON HER BROTHER: ALIVE 51 YRS, UNKNOWN SISTER: ALIVE 53 YRS, HEALTHY 1 BROTHER(S) , 3 SISTER(S) . 2DAUGHTER(S) - HEALTHY. SOCIAL HISTORY GENERAL: TOBACCO USE ARE YOU A:CURRENT SMOKER ARE YOU INTERESTED IN QUITTING?READY TO QUIT CUTTING DOWN PREVIOUS QUIT ATTEMPTS?YES, MORE THAN 6 MONTHS AGO. COUNSELED THE PATIENT ON TOBACCO USE, CESSATION [id number]/29/2020 HOW MANY CIGARETTES A DAY DO YOU SMOKE?6-10 HOW SOON AFTER YOU WAKE UP DO YOU SMOKE YOUR FIRST CIGARETTE?6-30 MIN HOW OFTEN DO YOU SMOKE CIGARETTES?EVERY DAY PATIENT COUNSELED ON THE DANGERS OF TOBACCO USE AND URGED TO QUIT:03/17/2020 SMOKING CESSATION INFORMATION GIVEN11/02/2019 LATEX QUESTIONNAIRE LATEX ALLERGY : HAVE YOU EVER DEVELOPED ANY TYPE OF REACTION AFTER HANDLING LATEX PRODUCTS SUCH RUBBER GLOVES, CONDOMS, DIAPHRAGMS, BALLOONS, SOCKS, OR UNDERWEAR?NO LATEX ALLERGY : HAVE YOU EVER DEVELOPED ANY TYPE OF REACTION DURING OR AFTER DENTAL APPOINTMENT, VAGINAL/RECTAL EXAMINATION, SURGICAL PROCEDURE, OR ANY OTHER EXPOSURE?NO LATEX RISK : HAVE YOU EVER HAD ANY DIFFICULTY BREATHING OR HIVES AFTER EATING OR HANDLING ANY FRUITS, OR VEGETABLES; SUCH KIWI, BANANAS, STONE FRUITS, OR CHESTNUTSNO LATEX RISK : DO YOU HAVE A PREVIOUS PERSONAL HISTORY OF MORE THAN NINE SURGERIES, SPINA BIFIDA, OR REPEATED CATHERIZATIONS? NO LATEX RISK : ARE YOU FREQUENTLY EXPOSED TO LATEX PRODUCTS IN YOUR OCCUPATION?YES DATE ASKED : 03/17/2020 BMI CARE GOAL FOLLOW-UP ABOVE NORMAL BMI FOLLOW-UPEXERCISE PROMOTION: STRETCHING ALCOHOL SCREENING DID YOU HAVE A DRINK CONTAINING ALCOHOL IN THE PAST YEAR?NO POINTS0 INTERPRETATIONNEGATIVE RECREATIONAL DRUG USE DRUG USE?NO CAFFEINE CAFFEINE USE?NO SEXUAL HX HAD SEX IN THE LAST 12 MONTHS (VAGINAL, ORAL, OR ANAL)?YES WITHWOMEN ONLY PREVENTION STRATEGIES DISCUSSED:OTHER USE PROTECTION?NO HAVE YOU EVER HAD AN STD?NO HIV / HEP-C SCREENING HIV TEST OFFERED TO PATIENT:YES DATE OFFERED:10/08/2016 TEST ACCEPTED:YES HEP-C TEST OFFERED TO PATIENT:YES DATE OFFERED:10/08/2016 TEST ACCEPTED:YES MORMONISM NO WORSHIP BELIEFS THAT WOULD IMPACT HEALTH CARE. LANGUAGE JAPANESE. EDUCATION COLLEGE. 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 EXERCISE: NO REGULAR EXERCISE. MARITAL STATUS: . NEW PATIENT PAIN DIARY TODAY'S VISIT PATIENT DESCRIBES PAIN :ACHING, BURNING, HAVE IT ALL THE TIME, SHARP, STABBING, THROBBING, SORE, SHOOTING FROM 0-10, WHAT LEVEL IS YOUR PAIN TODAY?10 PRECIPITATING FACTORS WALKING AND STANDING. CAN ONLY STAND FOR 2-3 MINS THEN HE HAS TO SIT DOWN ALLEVIATING FACTORS SITTING OR LYING DOWN--GETTING OFF LEGS AND FEET IMPACT ON FUNCTION IS WORKING BUT IT LIMITS WHAT HE IS ABLE TO DO PAIN CLINIC PFS, CLERGY, PUBLIC HEALTH REFERRALS WAS THE PROVIDER NOTIFIED OF ANY PERTINENT INFO?YES HAS THE PATIENT BEEN EDUCATED REGARDING HIS/HER PLAN OF CARE?YES HAS THE PATIENT BEEN EDUCATED REGARDING PAIN, THE RISK FOR PAIN, THE IMPORTANCE OF EFFECTIVE PAIN MANAGEMENT, AND THE PAIN ASSESSMENT PROCESS?YES ADVANCE DIRECTIVE ADVANCE DIRECTIVE DISCUSSED WITH PATIENT:YES PATIENT DOES NOT HAVE ANY ADVANCED DIRECTIVES AND DECLINED INFORMATION ON HCP AT THIS TIME. HOSPITALIZATION/MAJOR DIAGNOSTIC PROCEDURE NO HOSPITALIZATION HISTORY. REVIEW OF SYSTEMS REVIEWED BY: PROVIDER: DAVIAN LYON . CONSTITUTIONAL: ANY CHANGE IN YOUR MEDICAL CONDITION? NO . CHILLS NO . FEVER NO . INFECTION: DO YOU HAVE NEW INFECTIONS? NO . DO YOU HAVE HISTORY OF MRSA? NO . MUSCULOSKELETAL: ANY NEW PATTERNS OF PAIN OR NUMBNESS? PAIN IS MORE INTENSE SINCE LAST PROCEDURE, LEFT LEG WEAKNESS AND PAIN, LEG CRAMP . GASTROENTEROLOGY: ANY NEW CHANGE IN BOWEL CONTROL? NO . GENITOURINARY: ANY NEW CHANGE IN BLADDER CONTROL? NO . IS THERE A CHANCE YOU COULD BE ? NO . HEMATOLOGY/LYMPH: DO YOU TAKE ANY BLOOD THINNERS? (FOR EXAMPLE- COUMADIN, PLAVIX, AGGRENOX, PLATEL, PRADAXA, OR XARELTO) NO . WHEN WAS YOUR LAST DOSE? DATE: TIME: . NEUROLOGY: HAVE YOU FALLEN IN THE PAST 12 MONTHS? NO . ANY NEW EXTREMITY NUMBNESS OR WEAKNESS? NO . CARDIOLOGY: DO YOU HAVE A PACEMAKER OR DEFIBRILLATOR? NO . RESPIRATORY: HAVE YOU BEEN SICK IN THE PAST WEEK? NO . FEVER NO . FLU LIKE SYMPTOMS? NO . COUGH NO . INTEGUMENTARY: DO YOU HAVE ANY RASHES OR OPEN SORES? NO . ALLERGIC/IMMUNO: ARE YOU ALLERGIC TO IV DYE? NO . ANY NEW ALLERGIES? NO . PSYCHIATRIC: DO YOU HAVE THOUGHTS OF HURTING YOURSELF OR SOMEONE ELSE? NO . ARE YOU ABUSED, NEGLECTED, OR IN AN UNSAFE ENVIRONMENT? NO . ENDOCRINOLOGY: ARE YOU DIABETIC? NO . OTHER: DO YOU NEED ANY PRESCRIPTIONS? NO . IF YES, PLEASE LIST: ____ . ANY NEW PROBLEMS WITH YOUR MEDICATIONS? NO . WHEN DID YOU LAST EAT? ____ . WHEN DID YOU LAST DRINK? ____ . WHAT DID YOU LAST DRINK? ____ . NAME OF PERSON DRIVING YOU HOME? ____ . DO YOU HAVE ANY OTHER QUESTIONS OR CONCERNS WANTS TO DISCUSS OTHER OPTIONS FOR PAIN TREATMENT . EXAMINATION GENERAL EXAMINATION: GENERALAPPEARS UNCOMFORTABLE . PSYCHAPPROPRIATE MOOD AND AFFECT . FACE:UNREMARKABLE. DIAGNOSTIC:MRI L/S SPINE 2019 . 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 NOTES: DUE TO SIGNIFICANT INCREASE IN PAIN DESPITE INTERVENTIONAL TRIALS/STEROID INJECTIONS, ETC. AND NEW ONSET OF LUMBAR RADICULAR SYMPTOMS, I WILL ORDER AN MRI OF THE LS-SPINE. FOLLOW-UP IS SCHEDULED AT PAIN CENTER AFTER MRI TO EVALUATE FOR TREATMENT OPTIONS. PATIENT IS ADVISED TO GO TO THE ER SHOULD HE HAVE SEVERE INCREASE IN PAIN OR LOSS OF MOBILITY/NUMBNESS OF THE LOWER EXTREMITIES. HE IS ADVISED TO GO TO THE EMERGENCY ROOM IMMEDIATELY IF HE DEVELOPS BOWEL OR BLADDER INCONTINENCE. TOTAL TIME SPENT DURING TELEMED VISIT WAS APPROXIMATELY 15 MINUTES. OTHERS NOTES: UNABLE TO OBTAIN VITAL SIGNS DUE TO VIRTUAL VISIT, PT GIVES CONSENT TO ACCESS RECORDS AND AGREES TO VIRTUAL VISIT. DS. DISPOSITION & COMMUNICATION FOLLOW UP 6-0VWC-PLEVRI MRI (REASON: MRI L/S SPINE) ELECTRONICALLY SIGNED BY SONALI AVELAR ON 03/21/2020 AT 01:47 PM EDT DISCLAIMER : THIS IS A VISIT SUMMARY EXTRACTED FROM THE [employer] CHART. IT IS NOT A COPY OF THE [employer] PROGRESS NOTE. CURTIS
== END ==
LOC: M PAIN 09:45 → M TMPAIN 09:45
PROVIDERS: ATTEND Nurse Practitioner Family
DX: M47.816 Spondylosis without myelopathy or radiculopathy, lumbar region (principal); F17.210 Nicotine dependence, cigarettes, uncomplicated; Z79.899 Other long term (current) drug therapy; Z88.0 Allergy status to penicillin; Z88.8 Allergy status to other drugs, medicaments and biological substances; Z91.030 Bee allergy status

== ENCOUNTER → 2020-03-30 | Outpatient (CLI) | payer OTHER ==
--- NOTE | 2020-03-30 10:00 | REP ---
MRI LUMBAR SPINE WITHOUT CONTRAST: HISTORY: Lumbar arthropathy. Comparison lumbar spine MRI study June 13, 2019. TECHNIQUE: Sagittal and axial T1- and T2-weighted scans are acquired in the usual fashion with and without fat saturation. Sequences include spin echo, turbo spin-echo, and STIR imaging sequences. MRI FINDINGS: Lumbar vertebral body heights are preserved. Alignment is maintained. No fracture or collapse is seen. No bony destructive lesion is noted. There is a perineural cyst in the second to sacral segment on the left unchanged. The tip of the conus medullaris is normal in position and appearance at L1. There is mild degenerative narrowing and desiccation in the L2-3 disc unchanged from the comparison study. No disc protrusion or central canal stenosis is seen. At L3-4, there is degenerative disc narrowing and decreased signal intensity. Diffuse disc bulging is seen effacing the ventral subarachnoid space. Along with mild facet and ligamentum flavum hypertrophy, these factors contribute to central canal stenosis at L3-4. This was seen previously and is unchanged. The mid line AP dimension of the thecal sac at the L3-4 disc level is 9.4 mm. No neural foraminal compression is seen. At L4-5, there is mild disc space narrowing. Diffuse disc bulging is seen. Mild central canal stenosis is present due to disc bulging, ligamentum flavum and facet hypertrophy. This is unchanged from prior study. The mid line AP dimension of the thecal sac at L4-5 is 10.4 mm. No neural foraminal encroachment is seen. At L5-S1, there is no evidence of disc protrusion. Facet hypertrophy is present bilaterally. No spinal stenosis or foraminal encroachment. IMPRESSION: Mild central canal stenosis at L3-4 and L4-5 unchanged from June 13, 2019. Degenerative disc and osteoarthritic facet changes. Diffuse disc bulging at these two levels. Electronically Signed by Babak Bolton MD 03/30/2020 11:44 A
== END ==
LOC: M RAD 07:52
PROVIDERS: ATTEND Nurse Practitioner Family
DX: M47.816 Spondylosis without myelopathy or radiculopathy, lumbar region (principal); M51.26 Other intervertebral disc displacement, lumbar region; M48.061 Spinal stenosis, lumbar region without neurogenic claudication; M85.48 Solitary bone cyst, other site

== ENCOUNTER → 2020-05-04 | Outpatient (CLI) | payer OTHER ==
--- NOTE | 2020-05-17 02:48 | ECWPNPC ---
PATIENT NAME: VIRIDIANA CASTANEDA : 1965 GENDER: MALE VISIT DATE: 05/04/2020 DISCHARGE DATE: 05/04/20 1202 VISIT LOCKED DATE TIME: PHYSICIAN: DAVIAN BAKER RESOURCE: DAVIAN BAKER REASON FOR APPOINTMENT 1. MRI REVIEW HISTORY OF PRESENT ILLNESS GENERAL: HERE FOR FOLLOW-UP OF CHRONIC LOW BACK PAIN. HAS TRIED MULTIPLE PROCEDURES TO INCLUDE TRIGGER POINT INJECTIONS, LUMBAR EPIDURAL STEROID INJECTION AND BILATERAL DIAGNOSTIC FACET BLOCKS IN HOPES TO DO RADIOFREQUENCY. ALL THESE PROCEDURES DID NOT HELP HIM AND SOME AGGRAVATED HIS PAIN. MRI OF THE LS-SPINE WAS ORDERED AND DONE ON 03/30/2020 PER MY REQUEST. REVIEWED THIS WITH PATIENT TODAY. RELATIVELY UNCHANGED FROM 06/13/2019. SEEMS TO BE FACET ARTHROPATHY CAUSING MOST OF HIS SYMPTOMS. PAIN IS DISRUPTING HIS LIFESTYLE AND SLEEP. HE DOES NOT WANT TO BE ON PAIN MEDICATION. COMPLAINING OF BILATERAL LOWER EXTREMITY NEUROPATHY SYMPTOMS. RECOMMEND EVALUATION WITH PRIMARY CARE FOR FURTHER RECOMMENDATIONS WE HAVE EXHAUSTED INTERVENTIONAL OPTIONS. -. FALL RISK SCREENING: SCREENING :NO FALLS REPORTED IN THE LAST YEAR PAIN SCREENING: PATIENT HAS A COMPLAINT OF ACUTE OR CHRONIC PAIN :YES LOCATION OF PAIN: BILATERAL BUTTOCKS DOWN TO FEET INTENSITY OF PAIN (SCALE OF 1 TO 10):9 WHAT DOES YOUR PAIN FEEL LIKE:ACHING, BURNING, SHARP TINGLING DURATION:CONTINOUS PAIN IS INCREASED BY:ACTIVITIES, PROLONGED STANDING PAIN IS DECREASED BY:SITTING LAYING DOWN NURSING NOTE: -. PAIN CENTER INTAKE QUESTIONS: DO YOU HAVE A HISTORY OF MRSA? :NO DO YOU TAKE A BLOOD THINNERS? :NO DO YOU HAVE ANY BLEEDING DISORDERS? :NO ANY NEW NUMBNESS OR WEAKNESS IN YOUR LEGS OR ARMS? :NO ANY PACEMAKER,DEFIBRILLATOR, OR DORSAL COLUMN STIMULATOR? :NO DO YOU HAVE ANY RASHES OR OPEN SORES? :NO ARE YOU ALLERGIC TO IV DYE? :NO ARE YOU DIABETIC? :NO ANY NEW PROBLEMS WITH YOUR MEDICATIONS? :NO HAVE YOU RECEIVED A VACCINE IN THE PAST 30 DAYS? :NO DO YOU PLAN TO RECEIVE A VACCINE IN THE NEXT 21 DAYS? :NO DO YOU NEED ANY PRESCRIPTION? :NO DO YOU TAKE ANY IMMUNOSUPPRESSIVE MEDICATIONS? :NO IS THERE A CHANCE YOU COULD BE ? :NO ARE YOU BREAST FEEDING? :NO CURRENT MEDICATIONS TAKING NEXIUM 40 MG CAPSULE DELAYED RELEASE 1 CAPSULE ORALLY ONCE A DAY TAKING NITROGLYCERIN 0.4 MG TABLET SUBLINGUAL DIRECTED SUBLINGUAL DAILY TAKING FLONASE ALLERGY RELIEF 50 MCG/ACT SUSPENSION 1 SPRAY IN EACH NOSTRIL NASALLY ONCE A DAY NEEDED TAKING ADRENACLICK 0.3 MG/0.3ML SOLUTION AUTO-INJECTOR DIRECTED INJECTION AT ONSET OF BEE STING AND THEN PROCEED TO ER FOR MONITORING, NOTES: KEEP ONE AT HOME AND ONE IN THE CAR. TAKING IBUPROFEN 800 MG TABLET 1 TABLET WITH FOOD OR MILK NEEDED ORALLY THREE TIMES A DAY NOT-TAKING TIZANIDINE HCL 4 MG TABLET 1 TABLET NEEDED ORALLY BEFORE BEDTIME MAY REPEAT IN 4 HRS NOT-TAKING CYCLOBENZAPRINE HCL 10 MG TABLET 1 TAB ORALLY THREE TIMES DAILY NEEDED NOT-TAKING NAPROXEN 500 MG TABLET 1 TABLET WITH FOOD OR MILK NEEDED ORALLY EVERY 12 HRS NOT-TAKING CYMBALTA 30 MG CAPSULE DELAYED RELEASE PARTICLES 1 CAPSULE ORALLY WITH FOOD FOR PAIN ONCE A DAY MDD1 NOT-TAKING KETOROLAC TROMETHAMINE 10 MG TABLET 1 TABLET WITH FOOD OR MILK NEEDED ORALLY FOR PAIN EVERY 8 HRS MDD3 NOT-TAKING GABAPENTIN 300 MG CAPSULE 2 CAPSULE ORALLY THREE TIMES DAILY, NOTES: NOT USED IN 3 WEEKS NAUSEATED NOT-TAKING CYANOCOBALAMIN 1000 MCG/ML SOLUTION 1 ML INJECTION MEDICATION LIST REVIEWED AND RECONCILED WITH THE PATIENT PAST MEDICAL HISTORY GERD LOW BACK PAIN HTN-PT STATES B/P WAS ONLY HIGH ONCE ALLERGIES PENICILLIN (FOR ALLERGIES USE ONLY): HIVES - ALLERGY BEE STINGS : ANAPHYLAXIS - ALLERGY GABAPENTIN: HEADACHE, ABD. PAIN, TROUBLE FOCUSING AND MAKES SHAKEY - SIDE EFFECTS SURGICAL HISTORY LEFT INGUINAL HERNIA REPAIR FROM [facility] 1999 RIGHT KNEE ARTHROPLASTY 2002 FAMILY HISTORY FATHER: 75 YRS, HEART DISEASE, HIGH CHOLESTEROL, DIAGNOSED WITH HYPERTENSION MOTHER: ALIVE 75 YRS, DOES NOT KNOW ANY MEDICAL HISTORY ON HER BROTHER: ALIVE 51 YRS, UNKNOWN SISTER: ALIVE 53 YRS, HEALTHY 1 BROTHER(S) , 3 SISTER(S) . 2DAUTER(S) - HEALTHY. SOCIAL HISTORY GENERAL: TOBACCO USE ARE YOU A:CURRENT SMOKER HOW OFTEN DO YOU SMOKE CIGARETTES?EVERY DAY HOW SOON AFTER YOU WAKE UP DO YOU SMOKE YOUR FIRST CIGARETTE?6-30 MIN HOW MANY CIGARETTES A DAY DO YOU SMOKE?6-10 ARE YOU INTERESTED IN QUITTING?READY TO QUIT CUTTING DOWN PATIENT COUNSELED ON THE DANGERS OF TOBACCO USE AND URGED TO QUIT:03/17/2020 COUNSELED THE PATIENT ON TOBACCO USE, CESSATION [id number]/29/2020 SMOKING CESSATION INFORMATION GIVEN11/02/2019 PREVIOUS QUIT ATTEMPTS?YES, MORE THAN 6 MONTHS AGO. LATEX QUESTIONNAIRE LATEX ALLERGY : HAVE YOU EVER DEVELOPED ANY TYPE OF REACTION AFTER HANDLING LATEX PRODUCTS SUCH RUBBER GLOVES, CONDOMS, DIAPHRAGMS, BALLOONS, SOCKS, OR UNDERWEAR?NO LATEX ALLERGY : HAVE YOU EVER DEVELOPED ANY TYPE OF REACTION DURING OR AFTER DENTAL APPOINTMENT, VAGINAL/RECTAL EXAMINATION, SURGICAL PROCEDURE, OR ANY OTHER EXPOSURE?NO LATEX RISK : HAVE YOU EVER HAD ANY DIFFICULTY BREATHING OR HIVES AFTER EATING OR HANDLING ANY FRUITS, OR VEGETABLES; SUCH KIWI, BANANAS, STONE FRUITS, OR CHESTNUTSNO LATEX RISK : DO YOU HAVE A PREVIOUS PERSONAL HISTORY OF MORE THAN NINE SURGERIES, SPINA BIFIDA, OR REPEATED CATHERIZATIONS? NO LATEX RISK : ARE YOU FREQUENTLY EXPOSED TO LATEX PRODUCTS IN YOUR OCCUPATION?YES DATE ASKED : 05/04/2020 BMI CARE GOAL FOLLOW-UP ABOVE NORMAL BMI FOLLOW-UPEXERCISE PROMOTION: STRETCHING ALCOHOL SCREENING DID YOU HAVE A DRINK CONTAINING ALCOHOL IN THE PAST YEAR?NO POINTS0 INTERPRETATIONNEGATIVE RECREATIONAL DRUG USE DRUG USE?NO CAFFEINE CAFFEINE USE?NO SEXUAL HX HAD SEX IN THE LAST 12 MONTHS (VAGINAL, ORAL, OR ANAL)?YES WITHWOMEN ONLY PREVENTION STRATEGIES DISCUSSED:OTHER USE PROTECTION?NO HAVE YOU EVER HAD AN STD?NO HIV / HEP-C SCREENING HIV TEST OFFERED TO PATIENT:YES DATE OFFERED:10/08/2016 TEST ACCEPTED:YES HEP-C TEST OFFERED TO PATIENT:YES DATE OFFERED:10/08/2016 TEST ACCEPTED:YES YARSANI NO DRUZE BELIEFS THAT WOULD IMPACT HEALTH CARE. LANGUAGE [place]. EDUCATION COLLEGE. 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 DIET: REGULAR. EXERCISE: NO REGULAR EXERCISE. MARITAL STATUS: . NEW PATIENT PAIN DIARY TODAY'S VISIT PATIENT DESCRIBES PAIN :ACHING, BURNING, HAVE IT ALL THE TIME, SHARP, STABBING, THROBBING, SORE, SHOOTING FROM 0-10, WHAT LEVEL IS YOUR PAIN TODAY?10 PRECIPITATING FACTORS WALKING AND STANDING. CAN ONLY STAND FOR 2-3 MINS THEN HE HAS TO SIT DOWN ALLEVIATING FACTORS SITTING OR LYING DOWN--GETTING OFF LEGS AND FEET IMPACT ON FUNCTION IS WORKING BUT IT LIMITS WHAT HE IS ABLE TO DO PAIN CLINIC PFS, CLERGY, PUBLIC HEALTH REFERRALS WAS THE PROVIDER NOTIFIED OF ANY PERTINENT INFO?YES HAS THE PATIENT BEEN EDUCATED REGARDING HIS/HER PLAN OF CARE?YES HAS THE PATIENT BEEN EDUCATED REGARDING PAIN, THE RISK FOR PAIN, THE IMPORTANCE OF EFFECTIVE PAIN MANAGEMENT, AND THE PAIN ASSESSMENT PROCESS?YES ADVANCE DIRECTIVE ADVANCE DIRECTIVE DISCUSSED WITH PATIENT:YES PATIENT DOES NOT HAVE ANY ADVANCED DIRECTIVES AND DECLINED INFORMATION ON HCP AT THIS TIME. HOSPITALIZATION/MAJOR DIAGNOSTIC PROCEDURE NO HOSPITALIZATION HISTORY. REVIEW OF SYSTEMS CONSTITUTIONAL: ANY RECENT FEVER NO . CHILLS NO . WEIGHT CHANGE OF UNKNOWN REASONS NO . GASTROENTEROLOGY: NEW UNEXPLAINABLE CHANGES IN BOWEL CONTROL NO . CONSTIPATION NO . GENITOURINARY: ANY NEW CHANGE IN BLADDER CONTROL? NO . NEUROLOGY: NEW ONSET DIZZINESS OR NEUROLOGICAL CHANGES NOT MENTIONED NO . NEW NUMBNESS OR PAIN PATTERNS NOT MENTIONED AND PERTINENT TO TODAY'S VISIT NO . CARDIOLOGY: NEW CHEST PRESSURE NO . NEW CHEST PAIN NO . RESPIRATORY: UNEXPLAINABLE COUGH NO . NEW SHORTNESS OF BREATH NO . VITAL SIGNS WT 236.2 LBS, HT 67 IN, BMI 36.99 INDEX, BP 154/87 MM HG, HR 85 /MIN, RR 18 /MIN, TEMP 97.7 F, OXYGEN SAT % 98%, NA INITIALS AW 1125. EXAMINATION GENERAL EXAMINATION: GENERALAWAKE,ALERT ,PLEASANT . PSYCHAFFECT NORMAL . LUNGS:LUNG CHA ARE CLEAR TO AUSCULTATION BILATERALLY. GOOD MOVEMENT OF AIR . HEART:S1, S2 IN A REGULAR RATE AND RHYTHM. NO SIGNIFICANT MURMURS, RUBS OR GALLOPS NOTED . ASSESSMENTS LUMBAR FACET ARTHROPATHY - M47.816 (PRIMARY) TREATMENT LUMBAR FACET ARTHROPATHY NOTES: DISCHARGE TO PRIMARY CARE TO BE EVALUATED FOR OPTIONS FOR PERSISTENT LOW BACK AND BILATERAL LEG PAIN. PROCEDURE CODES FA211 ESTABILISHED PATIENT [facility] CHARGE DISPOSITION & COMMUNICATION FOLLOW UP DISCHARGE TO PRIMARY CARE ELECTRONICALLY SIGNED BY SONALI AVELAR ON 05/16/2020 AT 03:36 PM EDT DISCLAIMER : THIS IS A VISIT SUMMARY EXTRACTED FROM THE [employer] CHART. IT IS NOT A COPY OF THE [employer] PROGRESS NOTE. CURTIS
== END ==
LOC: M PAIN 10:45
PROVIDERS: ATTEND Nurse Practitioner Family
DX: M47.816 Spondylosis without myelopathy or radiculopathy, lumbar region (principal)

== ENCOUNTER → 2020-12-16 | Outpatient (CLI) | payer OTHER ==
[~2020-12-16] MED LIST changes: -BUPIVACAINE HCL 0.25% 10ML VIAL As Ordered ONE; -BUPIVACAINE HCL 0.25% 30ML VIAL As Ordered ONE; +IBUP200T45 PO; +NEXI40CA PO
== END ==
LOC: M LABSMTC 10:20
PROVIDERS: ATTEND Anesthesiology
DX: Z01.812 Encounter for preprocedural laboratory examination (principal); Z20.822 Contact with and (suspected) exposure to COVID-19

== ENCOUNTER 2020-12-21 07:40 | Day surgery (SDC) | payer OTHER ==
[~2020-12-21] VITALS: Ht 170.2 cm; Wt 107.0 kg
[~2020-12-21 07:40] MED LIST changes: +NS 1,000 ML IV ONE
--- OUTSIDE RECORDS SUMMARY | 2020-12-21 07:45 | CCD ---
Author Author [facility] Organization [facility] Address Unknown Phone Unavailable Care Team Providers Care Track Inspector Name Role Phone oRdri Odom Unavailable PROBLEMS Type Condition ICD9-CM Code [id number] Code Onset Dates Condition S tatus W/U Status Risk SNOMED Code Notes Problem Smoker F17.200 Active confirmed 08253530 Problem Primary insomnia F51.01 Active confirmed 397 2004 Problem Chronic rhinitis J31.0 Active confirmed 860 67816 Problem Chronic frontal sinusitis J32.1 Active confirmed 94839254 Problem Intractable episodic cluster headache G44.011 Ac tive confirmed 629234222 Problem Erectile dysfunction, unspecified erectile dysfunction typ e N52.9 Active confirmed 552197336 Problem Other chronic pain G89.29 Active confirmed 8 1977916 Problem 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.16 Active confirmed 147557915721496 Problem Spinal stenosis of lumbar re gion, unspecified whether neurogenic claudication present M48.061 Active confirmed 92215998 Problem Left adrenal mass E27.9 Active confirmed 23 9230912 Problem HTN, goal below 130/80 I10 Active confirmed 11875448 Problem Old tear of meniscus of righ t knee, unspecified meniscus, unspecified tear type M23.206 Active confirmed 264668752 Problem COPD exacerbation J44.1 Active confirmed 19 8815222 Problem Type 2 diabetes mellitus wit hout complication, without long-term current use of insulin E11.9 Active confirmed 256048130 Problem Cubital tunnel syndrome on right G56.21 Active conf irmed 52397542 Problem Anxiety F41.9 Active confirmed 86259048 Problem Acute midline low back pain with sciatica, sciatica laterality unspecified M54.40 Active confirmed 912847326 Problem Old tear of medial meniscus of left knee, unspec ified tear type M23.204 Active confirmed 949345497 Problem Lumbago with sciatica, right side M54.41 Active confirmed 594361706 Problem Sacroiliitis M46.1 Active confirmed 4914975 9 Problem Lumbar Facet arthropathy M47.816 Active confirmed 946843384 Problem Spinal stenosis, lumbar region without neurogeni c claudication M48.061 Active confirmed 50500543 Problem Obstructive sleep apnea G47.33 Active confirmed 91563426 Problem Myalgia, other site M79.18 Active confirmed 98634568 Problem Erectile dysfunction due to diseases classified elsewhere N52.1 Active confirmed 581684709 Problem Old tear of meniscus of left knee, unspecified meniscus, unspecified tear type M23.207 Active confirmed 566746498 Problem Dyslipidemia E78.5 Active confirmed 8464104 07 Problem Spondylosis without myelopathy or radiculopathy, lumbosacral region M47.817 Active confirmed 38313065 Problem Spondylosis without myelopathy or radiculopathy, lumbar region M47.816 Active confirmed 974559850 Problem Intervertebral disc disorders with radiculopathy , lumbar region M51.16 Active confirmed [id number] ALLERGIES Allergen (clinical drug ingredient) Drug/Non Drug Allergy do cumented on EMR Reaction Allergy Type Onset Date Status gabapentin Gabapentin([facility] Code:[address]-67) heada daniel, abd. pain, trouble focusing and makes shakey Drug Allergy Active Penicillin (For Allergies Use Only) Hives Drug Allerg y Active bee stings Anaphylaxis Non Drug Allergy Active ENCOUNTERS from 1965 to 2020-12-16 Encounter Location Date Provider Diagnosis [address] [address] Dec, Rodri Lei HTN, goal below 130/80 I10 and Prediabet es R73.03 IMMUNIZATIONS Vaccine Route Administration Date Status Pneumococcal Adult 0.5mL (Pneumovax 23) IM Intramuscular March 19, 2018 Administered Influenza (6mo & up) Fluzone IM Intramuscular Oct 08, 2016 Ad ministered SOCIAL HISTORY Tobacco Use: Social History Observation Description Date Details (start date - stop date) Current Smoker Sex Assigned At : Social History Observation Description Sex Assigned At Unknown Audit Question Answer Notes Total Score: 1 Interpretation: Alcohol Education Sexual Hx: Question Answer Notes Had sex in the last 12 months (vaginal, oral, or anal)? Yes Have you ever had an STD? No Prevention Strategies discussed: Other with Women only Use protection? No Drug and Alcohol Question Answer Notes Total Score: 0 Interpretation: No problems reported Alcohol Screening: Question Answer Notes Did you have a drink containing alcohol in the past year? No Points 0 Interpretation Negative BMI Care Goal Follow-Up Question Answer Notes Above Normal BMI Follow-Up Exercise promotion: stretching Tobacco Use: Question Answer Notes Are you a: current smoker Smoking Cessation Information Given 11/02/2019 Patient counseled on the dangers of tobacco use and urged to quit: 03/17/2020 How many cigarettes a day do you smoke? 6-10 Are you interested in quitting? Ready to quit cutting down Counseled the patient on tobacco use, cessation provided REASON FOR REFERRAL No Information VITAL SIGNS No information MEDICATIONS Medication SIG (Take, Route, Frequency, Duration) Notes Start Da te End Date Status Naproxen 500 MG 1 tablet with food or milk a s needed Orally every 12 hrs for 30 days Feb, Not-Taking Nexium 40 MG 1 capsule Orally Once a day Active Gabapentin 300 MG 2 capsule Orally three times daily for 30 Days Apr, Not-Taking Cyanocobalamin 1000 MCG/ML 1 ml Injection for 30 day(s) Not-Taking Adrenaclick 0.3 MG/0.3ML as directed Injection At ons et of bee sting and then proceed to ER for monitoring for 30 days Apr, Active Tizanidine HCl 4 MG 1 tablet as needed Orally be fore bedtime may repeat in 4 hrs for 30 Days Jan, Not-Taking Nitroglycerin 0.4 MG as directed Sublingual Daily for 30 day(s) Feb, Active Cyclobenzaprine HCl 10 MG 1 tab Orally three times daily as needed for 30 days Not-Taking Ketorolac Tromethamine 10 MG 1 tablet with food or mil k as needed Orally for pain every 8 hrs MDD3 for 5 day(s) Feb, Not-Taking Cymbalta 30 MG 1 capsule Orally with food f or pain Once a day MDD1 for 30 day(s) Feb, Not-Taking Ibuprofen 800 MG 1 tablet with food or milk as needed Ora lly Three times a day Active Flonase Allergy Relief 50 MCG/ACT 1 spray in each nost ril Nasally Once a day as needed Jan, Active PROCEDURES No Information RESULTS No Results REASON FOR VISIT blood work MEDICAL (GENERAL) HISTORY Type Description Date Medical History GERD Medical History Smoker; ~34 pk-year; 1.5ppd for 23 years Medical History Low Back Pain Medical History HTN-pt states b/p was only high once Surgical History Left inguinal hernia repair from [place] 1999 Surgical History Right knee arthroplasty 2001 Goals Section No Information Health Concerns No Information MEDICAL EQUIPMENT No Information MENTAL STATUS No Information FUNCTIONAL STATUS No Information ASSESSMENTS Encounter Date Diagnosis Assessment Notes Treatment Notes Treatm ent Clinical Notes Dec, HTN, goal below 130/80 (ICD-10 - I10) Dec, Prediabetes (ICD-10 - R73.03) PLAN OF TREATMENT Treatment Notes Test Name Order Date HEMOGLOBIN A1c 2020-12-15 Comprehensive Metabolic Profile (CMP) 2020-12-15 CBC - Complete Blood Count 2020-12-15 LIPID PANEL (CARDIAC RISK) 2020-12-15 Next Appt Details Provider Name:Rodri Odom, 2021-01-16 0 8:15:00 AM, [address] [facility], [place], [place], [address], Insurance Providers Payer Name Payer Address Payer Phone Insured Name Patient Relati onship to Insured Coverage Start Date Coverage End Date [facility] [employer] [address] [facility] [phone] [phone] VIRIDIANA HUNG self
--- OUTSIDE RECORDS SUMMARY | 2020-12-21 07:45 | CCD ---
Author Author [facility] Organization [facility] Address Unknown Phone Unavailable Care Team Providers Care Senior Solutions Architect Name Role Phone Rodri Odom Unavailable PROBLEMS Type Condition ICD9-CM Code EDF26-OW Code Onset Dates Condition S tatus SNOMED Code Notes Problem Smoker F17.200 Active 06878179 Problem Primary insomnia F51.01 Active 6359761 Problem Chronic rhinitis J31.0 Active 55789531 Problem Chronic frontal sinusitis J32.1 Active 098338 02 Problem Intractable episodic cluster headache G44.011 Ac tive 514814528 Problem Erectile dysfunction, unspecified erectile dysfunction typ e N52.9 Active 592378332 Problem Other chronic pain G89.29 Active 80863482 Problem 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.16 Active 020894249271079 Problem Spinal stenosis of lumbar re gion, unspecified whether neurogenic claudication present M48.061 Active 69922803 Problem Left adrenal mass E27.9 Active 099843330 Problem HTN, goal below 130/80 I10 Active 95901557 Problem Old tear of meniscus of righ t knee, unspecified meniscus, unspecified tear type M23.206 Active 076396019 Problem COPD exacerbation J44.1 Active 646609615 Problem Type 2 diabetes mellitus wit hout complication, without long-term current use of insulin E11.9 Active 293805452 Problem Cubital tunnel syndrome on right G56.21 Active 46405996 Problem Anxiety F41.9 Active 49545209 Problem Acute midline low back pain with sciatica, sciatica laterality unspecified M54.40 Active 561161256 Problem Old tear of medial meniscus of left knee, unspec ified tear type M23.204 Active 976360534 Problem Lumbago with sciatica, right side M54.41 Active 490032596 Problem Sacroiliitis M46.1 Active 41518539 Problem Lumbar Facet arthropathy M47.816 Active 7558278 08 Problem Spinal stenosis, lumbar region without neurogeni c claudication M48.061 Active 74138813 Problem Obstructive sleep apnea G47.33 Active 12163522 Problem Myalgia, other site M79.18 Active 89028574 Problem Erectile dysfunction due to diseases classified elsewhere N52.1 Active 058113550 Problem Old tear of meniscus of left knee, unspecified meniscus, unspecified tear type M23.207 Active 404740700 Problem Dyslipidemia E78.5 Active 638617979 Problem Spondylosis without myelopathy or radiculopathy, lumbosacral region M47.817 Active 78854036 Problem Spondylosis without myelopathy or radiculopathy, lumbar region M47.816 Active 741931902 Problem Intervertebral disc disorders with radiculopathy , lumbar region M51.16 Active 956622533231186 ALLERGIES Allergen (clinical drug ingredient) Drug/Non Drug Allergy do cumented on EMR Reaction Allergy Type Onset Date Status gabapentin Gabapentin([facility] Code:[address]-97) heada daniel, abd. pain, trouble focusing and makes shakey Drug Allergy Active Penicillin (For Allergies Use Only) Hives Drug Allerg y Active bee stings Anaphylaxis Non Drug Allergy Active ENCOUNTERS from 1965 to 2020-10-18 Encounter Location Date Provider Diagnosis [address] [address] Oct, Rodri Lei Colon cancer screening Z12.11 IMMUNIZATIONS Vaccine Route Administration Date Status Pneumococcal [...] Information RESULTS No Results REASON FOR VISIT COL Referral MEDICAL (GENERAL) HISTORY Type Description Date Medical History GERD Medical History Smoker; ~34 pk-year; 1.5ppd for 23 years Medical History Low Back Pain Medical History HTN-pt states b/p was only high once Surgical History Left inguinal hernia repair from [place] e 1999 Surgical History Right knee arthroplasty 2001 Goals Section No Information Health Concerns No Information MEDICAL EQUIPMENT No Information MENTAL STATUS No Information FUNCTIONAL STATUS No Information ASSESSMENTS Encounter Date Diagnosis Assessment Notes Treatment Notes Treatm ent Clinical Notes Oct, Colon cancer screening (ICD-10 - Z12.11) referral placed for colon cancer screening PLAN OF TREATMENT Treatment Notes Assessment Notes Clinical Notes Colon cancer screening referral placed f or colon cancer screening Insurance Providers Payer Name Payer Address Payer Phone Insured Name Patient Relati onship to Insured Coverage Start Date Coverage End Date [employer] [employer] [facility] [address] [facility] [phone] VIRIDIANA CASTANEDA self
--- OUTSIDE RECORDS SUMMARY | 2020-12-21 07:45 | CCD ---
Author Author [facility] Organization [facility] Address Unknown Phone Unavailable Care Team Providers Care Editor At Large Name Role Phone Natanael CROOK MD Unavailable Unavailable Natanael CROOK MD Unavailable Unavailable Natanael CROOK MD Unavailable Unavailable Natanael CROOK MD Unavailable Unavailable Natanael CROOK MD Unavailable Unavailable Natanael CROOK MD Unavailable Unavailable Natanael CROOK MD Unavailable Unavailable Natanael CROOK MD Unavailable Unavailable Natanael CROOK MD Unavailable Unavailable Natanael CROOK MD Unavailable Unavailable Natanael CROOK MD Unavailable Unavailable Natanael CROOK MD Unavailable Unavailable Natanael CROOK MD Unavailable Unavailable Natanael CROOK MD Unavailable Unavailable Natanael CROOK MD Unavailable Unavailable Natanael CROOK MD Unavailable Unavailable Natanael CROOK MD Unavailable Unavailable Natanael CROOK MD Unavailable Unavailable Natanael CROOK MD Unavailable Unavailable Natanael CROOK MD Unavailable Unavailable Natanael CROOK MD Unavailable Unavailable Natanael CROOK MD Unavailable Unavailable Natanael CROOK MD Unavailable Unavailable Natanael CROOK MD Unavailable Unavailable Natanael CROOK MD Unavailable Unavailable RAY, Natanael PHILLIP MD Unavailable Unavailable RAY, Natanael PHILLIP MD Unavailable Unavailable RAY, Natanael PHILLIP MD Unavailable Unavailable RAY, Natanael PHILLIP MD Unavailable Unavailable RAY, Natanael PHILLIP MD Unavailable Unavailable RAY, Natanael PHILLIP MD Unavailable Unavailable RAY, Natanael PHILLIP MD Unavailable Unavailable RAY, Natanael PHILLIP MD Unavailable Unavailable RAY, Natanael PHILLIP MD Unavailable Unavailable RAY, Natanael PHILLIP MD Unavailable Unavailable RAY, Natanael PHILLIP MD Unavailable Unavailable RAY, Natanael PHILLIP MD Unavailable Unavailable RAY, Natanael PHILLIP MD Unavailable Unavailable RAY, Natanael PHILLIP MD Unavailable Unavailable RAY, Natanael PHILLIP MD Unavailable Unavailable RAY, Natanael PHILLIP MD Unavailable Unavailable RAY, Natanael PHILLIP MD Unavailable Unavailable RAY, Natanael PHILLIP MD Unavailable Unavailable RAY, Natanael PHILLIP MD Unavailable Unavailable RAY, Natanael PHILLIP MD Unavailable Unavailable RAY, Natanael PHILLIP MD Unavailable Unavailable Costello, Jody Almanza MD Unavailable Unavailable Costello, Jody Almanza MD Unavailable Unavailable Costello, Jody Almanza MD Unavailable Unavailable Costello, Jody Almanza MD Unavailable Unavailable Costello, Jody Almanza MD Unavailable Unavailable Costello, Jody Almanza MD Unavailable Unavailable Costello, Jody Almanza MD Unavailable Unavailable Costello, Jody Almanza MD Unavailable Unavailable Costello, Jody Almanza MD Unavailable Unavailable Costello, Jody Almanza MD Unavailable Unavailable Costello, Jody Almanza MD Unavailable Unavailable Costello, Jody Almanza MD Unavailable Unavailable Costello, Jody Almanza MD Unavailable Unavailable Costello, Jody Almanza MD Unavailable Unavailable Costello, Jody Almanza MD Unavailable Unavailable Costello, Jody Almanza MD Unavailable Unavailable Costello, Jody Almanza MD Unavailable Unavailable Costello, Jody Almanza MD Unavailable Unavailable Costello, Jody Almanza MD Unavailable Unavailable Costello, Jody Almanza MD Unavailable Unavailable Costello, Jody Almanza MD Unavailable Unavailable Costello, Jody Almanza MD Unavailable Unavailable Costello, Jody Almanza MD Unavailable Unavailable Costello, Jody Almanza MD Unavailable Unavailable Costello, Jody Almanza MD Unavailable Unavailable Costello, Jody Almanza MD Unavailable Unavailable Costello, Jody Almanza MD Unavailable Unavailable Costello, Jody Almanza MD Unavailable Unavailable Costello, Jody Almanza MD Unavailable Unavailable Costello, Jody Almanza MD Unavailable Unavailable Costello, Jody Almanza MD Unavailable Unavailable Costello, Jody Almanza MD Unavailable Unavailable Costello, Jody Almanza MD Unavailable Unavailable Costello, Jody Almanza MD Unavailable Unavailable Costello, Jody Almanza MD Unavailable Unavailable Costello, Jody Almanza MD Unavailable Unavailable Costello, Jody Almanza MD Unavailable Unavailable Costello, Jody Almanza MD Unavailable Unavailable Costello, Jody Almanza MD Unavailable Unavailable Costello, Jody Almanza MD Unavailable Unavailable Costello, Jody Almanza MD Unavailable Unavailable Costello, Jody Almanza MD Unavailable Unavailable CostelloJody MD Unavailable Unavailable CostelloJody MD Unavailable Unavailable CostelloJody MD Unavailable Unavailable CostelloJody MD Unavailable Unavailable CostelloJody MD Unavailable Unavailable Re-disclosure Warning The records that you are about to access may contain information from federally-assisted alcohol or drug abuse programs. If such information is present, then the following federally mandated warning applies: This information has been disclosed to you from records protected by federal confidentiality rules (42 CFR part 2). The federal rules prohibit you from making any further disclosure of this information unless further disclosure is expressly permitted by the written consent of the person to whom it pertains or as otherwise permitted by 42 CFR part 2. A general authorization for the release of medical or other information is NOT sufficient for this purpose. The Federal rules restrict any use of the information to criminally investigate or prosecute any alcohol or drug abuse patient.The records that you are about to access may contain highly sensitive health information, the redisclosure of which is protected by Article 27-F of the [facility] Public Health law. If you continue you may have access to information: Regarding HIV / AIDS; Provided by facilities licensed or operated by the [facility] Office of Mental Health; or Provided by the [facility] Office for People With Developmental Disabilities. If such information is present, then the following [facility] mandated warning applies: This information has been disclosed to you from confidential records which are protected by state law. State law prohibits you from making any further disclosure of this information without the specific written consent of the person to whom it pertains, or as otherwise permitted by law. Any unauthorized further disclosure in violation of state law may result in a fine or fci sentence or both. A general authorization for the release of medical or other information is NOT sufficient authorization for further disc losure. Allergies and Adverse Reactions Type Description Substance Reaction Status Data Source(s ) Drug allergy Penicillin (For Allergies Use Only) Drug allergy Hives Active eCW1 ([facility]) Drug allergy Gabapentin gabapentin headache, abd. p ain, trouble focusing and makes shakey Active eCW1 ([facility]) bee stings bee stings bee stings Anaphylaxis Active eCW1 ([facility]) bee stings bee stings bee stings Anaphylaxis Active eCW1 ([facility]) bee stings bee stings bee stings Anaphylaxis Active eCW1 ([facility]) bee stings bee stings bee stings Anaphylaxis Active eCW1 ([facility]) bee stings bee stings bee stings Anaphylaxis Active eCW1 ([facility]) bee stings bee stings bee stings Anaphylaxis Active eCW1 ([facility]) bee stings bee stings bee stings Anaphylaxis Active eCW1 ([facility]) bee stings bee stings bee stings Anaphylaxis Active eCW1 ([facility]) bee stings bee stings bee stings Anaphylaxis Active eCW1 ([facility]) Family History Family Member Name Family Member Gender Family Member Status Date o f Status Description Data Source(s) Unknown Unknown Problem MEDENT ([facility]) Unknown Female Problem MEDENT ([facility] Unknown Unknown Problem MEDENT ([facility]) Encounters Encounter Providers Location Date Indications Data Source(s ) Unknown [address] [place] [phone] 12/15/2020 12:00:00 AM EST eCW1 ([facility]) Unknown [address] [facility] [phone] 10/10/2020 12:00:00 AM EST eCW1 ([facility]) Outpatient [address] [place] [phone] 05/04/2020 12:00:00 AM EDT eCW1 ([facility]) [facility] [address] [place] [phone] 04/11/2020 12:00:00 AM EDT eCW1 ([facility]) Outpatient Referrer: KENJI CROOK MD 04/08/2020 04:53:00 AM EDT [facility] [address] [place] [phone] 03/17/2020 12:00:00 AM EDT eCW1 ([facility]) [facility] [address] [place] [phone] 03/03/2020 12:00:00 AM EDT eCW1 ([facility]) [facility] [address] [place] [phone] 03/02/2020 12:00:00 AM EDT eCW1 ([facility]) Outpatient Attender: Archie Costello MD Physical Therapy 03/01/2020 0 9:15:00 AM EDT MEDENT ([facility]) [facility] [address] [place] [phone] 03/01/2020 12:00:00 AM EDT eCW1 ([facility]) [facility] [address] [place] [phone] 02/18/2020 12:00:00 AM EDT eCW1 ([facility]) [address] [phone] 02/15/2020 12:00:00 AM EDT eCW1 ([facility]) [facility] [address] [place] [phone] 01/26/2020 12:00:00 AM EDT eCW1 ([facility]) Outpatient Referrer: KENJI CROOK MD 01/07/2020 03:09:00 PM EST [facility] [address] [place] [phone] 01/05/2020 12:00:00 AM EST eCW1 ([facility]) [facility] [address] [place] [phone] 12/23/2019 12:00:00 AM EST eCW1 ([facility]) [facility] Resident [address] [place] [phone] 11/27/2019 12:00:00 AM EST eCW1 ([facility]) Outpatient Referrer: KENJI CROOK MD 11/23/2019 08:03:00 PM EST [facility] [address] [place] [phone] 11/23/2019 12:00:00 AM EST eCW1 ([facility]) [facility] [address] [place] [phone] 11/09/2019 12:00:00 AM EST eCW1 ([facility]) [facility] [address] [place] [address] 11/02/2019 12:00:00 AM EST eCW1 ([facility]) Medications Medication Brand Name Start Date Product Form Dose Route Admi nistrative Instructions Pharmacy Instructions Status Indications Reaction Description Data Source(s) Ketorolac Tromethamine 10 MG Oral Tablet Ketorolac Trometham ine 10 MG 02/18/2020 12:00:00 AM EDT active 1 tablet with food or milk as needed eCW1 ([facility]) Ketorolac Tromethamine 10 MG Oral Tablet Ketorolac Trometham ine 10 MG 02/18/2020 12:00:00 AM EDT suspended Ketor olac Tromethamine 10 MG eCW1 ([facility]) duloxetine 30 MG Delayed Release Oral Capsule [Cymbalt a] Cymbalta 30 MG Cymbalta 30 MG 02/18/2020 12:00:00 AM EDT 1.0 {capsule} susp ended Cymbalta 30 MG eCW1 ([facility]) Ketorolac Tromethamine 10 MG Oral Tablet Ketorolac Trometham ine 10 MG 02/18/2020 12:00:00 AM EDT suspended 1 ta blet with food or milk as needed eCW1 ([facility]) Ketorolac Tromethamine 10 MG Oral Tablet Ketorolac Trometham ine 10 MG 02/18/2020 12:00:00 AM EDT suspended Keto rolac Tromethamine 10 MG eCW1 ([facility]) duloxetine 30 MG Delayed Release Oral Capsule [Cymbalt a] Cymbalta 30 MG Cymbalta 30 MG 02/18/2020 12:00:00 AM EDT suspended 1 capsule eCW1 ([facility]) duloxetine 30 MG Delayed Release Oral Capsule [Cymbalt a] Cymbalta 30 MG Cymbalta 30 MG 02/18/2020 12:00:00 AM EDT suspended 1 capsule eCW1 ([facility]) duloxetine 30 MG Delayed Release Oral Capsule [Cymbalt a] Cymbalta 30 MG Cymbalta 30 MG 02/18/2020 12:00:00 AM EDT active 1 capsule eCW1 ([facility]) Ketorolac Tromethamine 10 MG Oral Tablet Ketorolac Trometham ine 10 MG 02/18/2020 12:00:00 AM EDT suspended 1 ta blet with food or milk as needed eCW1 ([facility]) Ketorolac Tromethamine 10 MG Oral Tablet Ketorolac Trometham ine 10 MG 02/18/2020 12:00:00 AM EDT suspended 1 ta blet with food or milk as needed eCW1 ([facility]) duloxetine 30 MG Delayed Release Oral Capsule [Cymbalt a] Cymbalta 30 MG Cymbalta 30 MG 02/18/2020 12:00:00 AM EDT 1.0 {capsule} susp ended Cymbalta 30 MG eCW1 ([facility]) Ketorolac Tromethamine 10 MG Oral Tablet Ketorolac Trometham ine 10 MG 02/18/2020 12:00:00 AM EDT suspended Keto rolac Tromethamine 10 MG eCW1 ([facility]) duloxetine 30 MG Delayed Release Oral Capsule [Cymbalt a] Cymbalta 30 MG Cymbalta 30 MG 02/18/2020 12:00:00 AM EDT 1.0 {capsule} susp ended Cymbalta 30 MG eCW1 ([facility]) 30 mg 02/18/2020 12:00:00 AM EDT capsule,delayed release (DR/EC) 30 TAKE ONE CAPSULE BY MOUTH EVERY DAY WITH FOOD TAKE ONE CAPSULE BY MOUTH EVERY DAY WITH FOOD SOLD: 02/18/2020 Haley Wolfe s duloxetine 30 MG Delayed Release Oral Capsule [Cymbalt a] Cymbalta 30 MG Cymbalta 30 MG 02/18/2020 12:00:00 AM EDT suspended 1 capsule eCW1 ([facility]) tizanidine 4 MG Oral Tablet Tizanidine HCl 4 MG Tizanidine H Cl 4 MG 01/26/2020 12:00:00 AM EDT 1.0 {tablet_as_needed} suspended Tizanidine HCl 4 MG eCW1 ([facility]) tizanidine 4 MG Oral Tablet Tizanidine HCl 4 MG Tizanidine H Cl 4 MG 01/26/2020 12:00:00 AM EDT active 1 tablet as needed eCW1 ([facility]) tizanidine 4 MG Oral Tablet Tizanidine HCl 4 MG Tizanidine H Cl 4 MG 01/26/2020 12:00:00 AM EDT active 1 tablet as needed eCW1 ([facility]) tizanidine 4 MG Oral Tablet Tizanidine HCl 4 MG Tizanidine H Cl 4 MG 01/26/2020 12:00:00 AM EDT active 1 tablet as needed eCW1 ([facility]) tizanidine 4 MG Oral Tablet Tizanidine HCl 4 MG Tizanidine H Cl 4 MG 01/26/2020 12:00:00 AM EDT active 1 tablet as needed eCW1 ([facility]) tizanidine 4 MG Oral Tablet Tizanidine HCl 4 MG Tizanidine H Cl 4 MG 01/26/2020 12:00:00 AM EDT active 1 tablet as needed eCW1 ([facility]) tizanidine 4 MG Oral Tablet Tizanidine HCl 4 MG Tizanidine H Cl 4 MG 01/26/2020 12:00:00 AM EDT 1.0 {tablet_as_needed} suspended Tizanidine HCl 4 MG eCW1 ([facility]) tizanidine 4 MG Oral Tablet Tizanidine HCl 4 MG Tizanidine H Cl 4 MG 01/26/2020 12:00:00 AM EDT 1.0 {tablet_as_needed} suspended Tizanidine HCl 4 MG eCW1 ([facility]) Insurance Providers Payer name Policy type / Coverage type Policy ID Covered alliance party ID Covered alliance party's relationship to burnett Policy Burnett Plan Information [facility] COMM[facility]AN [facility] [id number] SP [id number] [facility]AN [facility] [id number] SP [id number] [facility] COMM[facility] PLAN [facility] [id number] SP [id number] [employer](MCAID) O [id number] S [id number] [facility](MCAID) O [id number] S [id number] SELF PAY ONLY [id number] SP [id number] [facility] [id number] SP [id number] [facility] HEA [id number] S [id number] [facility] COMMUNITY PLAN [facility] [id number] SP [id number] ANSI-Medicaid [id number] ANSI-Not a Secondary Insurance [id number] ANSI-Medicaid [id number] ANSI-Not a Secondary Insurance [id number] ANSI-Not a Secondary Insurance [id number] ANSI-Medicaid [id number] [facility] Community Plan [facility] [id number] Self [id number] ANSI-Medicaid [id number] ANSI-Not a Secondary Insurance [id number] ANSI-Not a Secondary Insurance [id number] ANSI-Medicaid [id number] ANSI-Not a Secondary Insurance [id number] ANSI-Medicaid [id number] ANSI-Not a Secondary Insurance [id number] ANSI-Medicaid [id number] ANSI-Medicaid [id number] ANSI-Not a Secondary Insurance [id number] [facility] COMMUN[facility]AN [facility] [id number] SP [id number] [facility] COMMUNITY PLAN [facility] [id number] SP [id number] ANSI-Not a Secondary Insurance [id number] ANSI-Medicaid [id number] ANSI-Not a Secondary Insurance [id number] ANSI-Medicaid [id number] ANSI-Not a Secondary Insurance [id number] ANSI-Medicaid [id number] ANSI-Not a Secondary Insurance [id number] ANSI-Medicaid [id number] ANSI-Medicaid [id number] ANSI-Medicaid [id number] ANSI-Medicaid [id number] [facility] MEDICAID [id number] Ita [id number] [facility] MEDICAID PI PI [facility] PLAN [facility]CDO [id number] SP [id number] [facility] [id number] SP [id number] [facility] [id number] SP [id number] [employer] Commercial Self United Community Plan Commercial Self [facility] Medicaid Medicaid Self SELF PAY UNAVAILABLE SP UNAVAILA BLE [employer] [id number] SP [id number] SELF PAY P UNAVAILABLE S UNAVAILA BLE P UNAVAILABLE UNAVAILA BLE Problems, Conditions, and Diagnoses Code Display Name Description Problem Type Effective Dates Data Source(s) M79.18 [id number] Myalgia, other site Problem 03/03/2020 12:00 :00 AM EDT eCW1 ([facility]) M79.18 [id number] Myalgia, other site Problem 03/03/2020 12:00 :00 AM EDT eCW1 ([facility]) M51.16 [id number] Intervertebral disc disorders with radiculopathy, lumbar region Problem 02/18/2020 12:00:00 AM EDT eCW1 ([facility]) M48.061 [id number] Spinal stenosis, lumbar region w ithout neurogenic claudication Problem 02/18/2020 12:00:00 AM EDT eCW1 ([facility]) M47.816 [id number] Spondylosis without myelopathy or radiculopathy, lumbar region Problem 01/05/2020 12:00:00 AM EST eCW1 ([facility]) M47.817 [id number] Spondylosis without myelopathy or radiculopathy, lumbosacral region Problem 01/05/2020 12:00:00 AM EST eCW1 ([facility]) M47.817 82307510 Spondylosis without myelopathy or radiculopathy, lumbosacral region Problem 01/05/2020 12:00:00 AM EST eCW1 ([facility]) E78.5 [id number] Dyslipidemia Problem 11/27/2019 12:00:00 AM EST eCW1 ([facility]) E78.5 [id number] Dyslipidemia Problem 11/27/2019 12:00:00 AM EST eCW1 ([facility]) M47.816 344019438 Lumbar Facet arthropathy Problem 11/23/2019 12:00:00 AM EST eCW1 ([facility]) M47.816 [id number] Lumbar Facet arthropathy Problem 11/23/2019 12:00:00 AM EST eCW1 ([facility]) Surgeries/Procedures Procedure Description Date Indications Data Source(s) TeleMedicine Est. Pt. Level 3 03/17/2020 12:00:00 AM E DT eCW1 ([facility]) INJ TRIGGER POINT 1/2 MUSCL 03/03/2020 12:00:00 AM EDT eCW1 ([facility]) X-Ray Spine Lumbosacral Complete Inc Bending Views Min Of 6 03/01/2020 12:00:00 AM EDT MEDENT ([facility]) TeleMedicine Est. Pt. Level 4 02/18/2020 12:00:00 AM E DT eCW1 ([facility]) ESTABILISHED PATIENT [facility] FACILITY CHARGE 020 12:00:00 AM EDT eCW1 ([facility]) INJ PARAVERT F JNT L/S 1 LEV 01/05/2020 12:00:00 AM ES T eCW1 ([facility]) INJ PARAVERT F JNT L/S 2 LEV 01/05/2020 12:00:00 AM ES T eCW1 ([facility]) RADXPS IN END [id number] 01/05/2020 12:00:00 AM ES T eCW1 ([facility]) INJECT SACROILIAC JOINT 11/09/2019 12:00:00 AM EST eCW1 ([facility]) Results ID Date Data Source [id number] 12/16/2020 09:40:00 AM EST [facility] Name Value Range Interpretation Code Description Data Lolita rce(s) Supporting Document(s) SARS coronavirus 2 RNA Not Detected [facility] [place] This lab was ordered by [facility] and reported by [facility]. ID Date Data Source [id number] 09/16/2020 12:00:00 AM EST [facility] Name Value Range Interpretation Code Description Data Lolita rce(s) Supporting Document(s) SARS coronavirus 2 RNA [Presence] in Res piratory specimen by PARRIS with probe detection [facility] This lab was ordered by Ch[facility] Stanley and reported by [facility]. Procedure Social History Code Duration Value Status Description Data Source(s ) Smoking 05/04/2020 12:00:00 AM EDT Current Smoker completed Curre nt Smoker eCW1 ([facility]) Smoking 05/04/2020 12:00:00 AM EDT Current Smoker completed Curre nt Smoker eCW1 ([facility]) Smoking 05/04/2020 12:00:00 AM EDT Current Smoker completed Curre nt Smoker eCW1 ([facility]) Vital Signs ID Date Data Source UNK Name Value Range Interpretation Code Description Data Source(s) Diastolic blood pressure 87 mm[Hg] 87 mm[Hg] eCW1 ([facility]) Systolic blood pressure 154 mm[Hg] 154 mm[Hg] e CW1 ([facility]) Body temperature 97.7 [degF] 97.7 [degF] eCW1 ( [facility]) Respiratory rate 18 /min 18 /min eCW1 ([facility]) Heart rate 85 /min 85 /min eCW1 ([facility]) Body mass index (BMI) [Ratio] 36.99 kg/m2 36.99 kg/m2 W1 ([facility]) Body height 67 [in_i] 67 [in_i] eCW1 ([facility]) Body weight 236.2 [lb_av] 236.2 [lb_av] eCW1 ([facility]) Diastolic blood pressure 81 mm[Hg] 81 mm[Hg] eCW1 ([facility]) Systolic blood pressure 127 mm[Hg] 127 mm[Hg] e CW1 ([facility]) Body temperature 98.4 [degF] 98.4 [degF] eCW1 ( [facility]) Respiratory rate 18 /min 18 /min eCW1 ([facility]) Heart rate 87 /min 87 /min eCW1 ([facility]) Body mass index (BMI) [Ratio] 38.21 kg/m2 38.21 kg/m2 W1 ([facility]) Body height 67 [in_us] 67 [in_us] eCW1 ([facility]) Body weight Measured 244 [lb_av] 244 [lb_av] eC W1 ([facility]) Body mass index (BMI) [Ratio] 34.5 kg/m2 34.5 k g/m2 MEDENT ([facility]) Body weight 247.38 [lb_av] 247.38 [lb_av] MEDEN T ([facility]) Body height 71 [in_i] 71 [in_i] MEDENT ([facility]) 5'11" Diastolic blood pressure 96 mm[Hg] 96 mm[Hg] eCW1 ([facility]) Systolic blood pressure 146 mm[Hg] 146 mm[Hg] e CW1 ([facility]) Body temperature 96.0 [degF] 96.0 [degF] eCW1 ( [facility]) Respiratory rate 18 /min 18 /min eCW1 ([facility]) Heart rate 91 /min 91 /min eCW1 ([facility]) Body mass index (BMI) [Ratio] 39.15 kg/m2 39.15 kg/m2 eCW1 ([facility]) Body height 67 [in_us] 67 [in_us] eCW1 ([facility]) Body weight Measured 250 [lb_av] 250 [lb_av] eC W1 ([facility]) Diastolic blood pressure 87 mm[Hg] 87 mm[Hg] eCW1 ([facility]) Systolic blood pressure 137 mm[Hg] 137 mm[Hg] e CW1 ([facility]) Body temperature 97.6 [degF] 97.6 [degF] eCW1 ( [facility]) Respiratory rate 18 /min 18 /min eCW1 ([facility]) Heart rate 80 /min 80 /min eCW1 ([facility]) Body mass index (BMI) [Ratio] 39.25 kg/m2 39.25 kg/m2 eCW1 ([facility]) Body height 67 [in_us] 67 [in_us] eCW1 ([facility]) Body weight Measured 250.6 [lb_av] 250.6 [lb_av ] eCW1 ([facility]) Diastolic blood pressure 72 mm[Hg] 72 mm[Hg] eCW1 ([facility]) Systolic blood pressure 120 mm[Hg] 120 mm[Hg] e CW1 ([facility]) Body temperature 98.9 [degF] 98.9 [degF] eCW1 ( [facility]) Respiratory rate 20 /min 20 /min eCW1 ([facility]) Heart rate 104 /min 104 /min eCW1 ([facility]) Body mass index (BMI) [Ratio] 39.28 kg/m2 39.28 kg/m2 eCW1 ([facility]) Body height 67 [in_us] 67 [in_us] eCW1 ([facility]) Body weight Measured 250.8 [lb_av] 250.8 [lb_av ] eCW1 ([facility]) Diastolic blood pressure 85 mm[Hg] 85 mm[Hg] eCW1 ([facility]) Systolic blood pressure 146 mm[Hg] 146 mm[Hg] e CW1 ([facility]) Body temperature 97.8 [degF] 97.8 [degF] eCW1 ( [facility]) Respiratory rate 18 /min 18 /min eCW1 ([facility]) Heart rate 81 /min 81 /min eCW1 ([facility]) Body mass index (BMI) [Ratio] 39.97 kg/m2 39.97 kg/m2 eCW1 ([facility]) Body height 67 [in_us] 67 [in_us] eCW1 ([facility]) Body weight Measured 255.2 [lb_av] 255.2 [lb_av ] eCW1 ([facility]) Diastolic blood pressure 89 mm[Hg] 89 mm[Hg] eCW1 ([facility]) Systolic blood pressure 141 mm[Hg] 141 mm[Hg] e CW1 ([facility]) Body temperature 98.5 [degF] 98.5 [degF] eCW1 ( [facility]) Respiratory rate 18 /min 18 /min eCW1 ([facility]) Heart rate 89 /min 89 /min eCW1 ([facility]) Body mass index (BMI) [Ratio] 40.22 kg/m2 40.22 kg/m2 eCW1 ([facility]) Body height 67 [in_us] 67 [in_us] eCW1 ([facility]) Body weight Measured 256.8 [lb_av] 256.8 [lb_av ] eCW1 ([facility]) Patient Treatment Plan of Care Planned Activity Planned Date Details Description Data Source (s) duloxetine 30 MG Delayed Release Oral Capsule [Cymbalt a] 02/18/2020 12:00:00 AM EDT eCW1 ([facility]) Ketorolac Tromethamine 10 MG Oral Tablet 02/18/2020 12:00:00 AM EDT eCW1 ([facility]) tizanidine 4 MG Oral Tablet 01/26/2020 12:00:00 AM EDT eCW1 ([facility])
[2020-12-21] MEDS ORDERED: propofoL 200 MG/20 ML VIAL As Ordered ONE ×2 (08:36→08:49)
[2020-12-21] MEDS ORDERED: LIDOCAINE 2% 100MG/5ML SDV (FOR ANES.) As Ordered ONE (08:36)
[2020-12-21] MEDS ORDERED: fentaNYL 100 MCG/2 ML INJECTION (J3010) As Ordered ONE (08:36)
--- NOTE | 2020-12-21 08:58 | ROOR ---
Patient Name: Dennis Hung Procedure Date: 12/21/2020 8:26 AM Date of : 1965 Age: 55 Room: [facility] Gender: Male Note Status: Finalized Procedure: Upper GI endoscopy Indications: Heartburn Providers: DO Nicole Antoine MD: PILI PICKENS [facility] [place] Requesting Provider: Medicines: Propofol per Anesthesia Complications: No immediate complications. Procedure: Pre-Anesthesia Assessment: - Prior to the procedure, a History and Physical was performed, and patient medications and allergies were reviewed. The patient is competent. The risks and benefits of the procedure and the sedation options and risks were discussed with the patient. All questions were answered and informed consent was obtained. Patient identification and proposed procedure were verified by the physician, the nurse, the stand up comedian and the substation maintenance technician in the endoscopy suite. Mental Status Examination: alert and oriented. Airway Examination: normal oropharyngeal airway and neck mobility. Respiratory Examination: clear to auscultation. CV Examination: normal. Prophylactic Antibiotics: The patient does not require prophylactic antibiotics. Prior Anticoagulants: The patient has taken no previous anticoagulant or antiplatelet agents. ASA Grade Assessment: II - A patient with mild systemic disease. After reviewing the risks and benefits, the patient was deemed in satisfactory condition to undergo the procedure. The anesthesia plan was to use monitored anesthesia care (MAC). Immediately prior to administration of medications, the patient was re-assessed for adequacy to receive sedatives. The heart rate, respiratory rate, oxygen saturations, blood pressure, adequacy of pulmonary ventilation, and response to care were monitored throughout the procedure. The physical status of the patient was re-assessed after the procedure. The Endoscope was introduced through the mouth, and advanced to the second part of duodenum. The upper GI endoscopy was accomplished without difficulty. The patient tolerated the procedure well. Findings: The Z-line was irregular. Biopsies were taken with a cold forceps for histology. Estimated blood loss was minimal. The exam was otherwise without abnormality. Impression: - Z-line irregular. Biopsied. - The examination was otherwise normal. Recommendation: - Patient has a contact number available for emergencies. The signs and symptoms of potential delayed complications were discussed with the patient. Return to normal activities tomorrow. Written discharge instructions were provided to the patient. - Await pathology results. - Return to nurse practitioner in 2 weeks. Procedure Code(s): --- Professional --- 75523, Esophagogastroduodenoscopy, flexible, transoral; with biopsy, single or multiple Diagnosis Code(s): --- Professional --- K22.8, Other specified diseases of esophagus R12, Heartburn CPT copyright 2019 [employer]. All rights reserved. The codes documented in this report are preliminary and upon nuclear medicine pet ct technologist review may be revised to meet current compliance requirements. Jaylon Burnham DO 12/21/2020 8:58:07 AM Electronically signed by Jaylon Burnham DO Number of Addenda: 0 Note Initiated On: 12/21/2020 8:26 AM Estimated Blood Loss: Estimated blood loss was minimal.
--- NOTE | 2020-12-21 09:01 | ROOR ---
Patient Name: Dennis Hung Procedure Date: 12/21/2020 8:30 AM Date of : 1965 Age: 55 Room: [facility] Gender: Male Note Status: Finalized Procedure: Colonoscopy Indications: High risk colon cancer surveillance: Personal history of colonic polyps Providers: DO Nicole Antoine MD[facility] Provider: Medicines: Propofol per Anesthesia Complications: No immediate complications. Procedure: Pre-Anesthesia Assessment: - Prior to the procedure, a History and Physical was performed, and patient medications and allergies were reviewed. The patient is competent. The risks and benefits of the procedure and the sedation options and risks were discussed with the patient. All questions were answered and informed consent was obtained. Patient identification and proposed procedure were verified by the physician, the nurse, the construction estimator and the drinking water technician in the endoscopy suite. Mental Status Examination: alert and oriented. Airway Examination: normal oropharyngeal airway and neck mobility. Respiratory Examination: clear to auscultation. CV Examination: normal. Prophylactic Antibiotics: The patient does not require prophylactic antibiotics. Prior Anticoagulants: The patient has taken no previous anticoagulant or antiplatelet agents. ASA Grade Assessment: II - A patient with mild systemic disease. After reviewing the risks and benefits, the patient was deemed in satisfactory condition to undergo the procedure. The anesthesia plan was to use monitored anesthesia care (MAC). Immediately prior to administration of medications, the patient was re-assessed for adequacy to receive sedatives. The heart rate, respiratory rate, oxygen saturations, blood pressure, adequacy of pulmonary ventilation, and response to care were monitored throughout the procedure. The physical status of the patient was re-assessed after the procedure. The Colonoscope was introduced through the anus and advanced to the cecum, identified by appendiceal orifice and ileocecal valve. The colonoscopy was performed without difficulty. The patient tolerated the procedure well. Findings: Non-bleeding internal hemorrhoids were found during retroflexion. The hemorrhoids were mild and Grade I (internal hemorrhoids that do not prolapse). Three hyperplastic polyps were found in the sigmoid colon and cecum. The polyps were 2 to 7 mm in size. These polyps were removed with a jumbo cold forceps. Resection and retrieval were complete. Estimated blood loss was minimal. The exam was otherwise without abnormality. Impression: - Non-bleeding internal hemorrhoids. - Three 2 to 7 mm polyps in the sigmoid colon and in the cecum, removed with a jumbo cold forceps. Resected and retrieved. - The examination was otherwise normal. Recommendation: - Patient has a contact number available for emergencies. The signs and symptoms of potential delayed complications were discussed with the patient. Return to normal activities tomorrow. Written discharge instructions were provided to the patient. - Await pathology results. - Repeat colonoscopy in 3 - 5 years for surveillance based on pathology results. - Return to physician case management assistant at appointment to be scheduled. Procedure Code(s): --- Professional --- 54962, Colonoscopy, flexible; with biopsy, single or multiple Diagnosis Code(s): --- Professional --- Z86.010, Personal history of colonic polyps K64.0, First degree hemorrhoids K63.5, Polyp of colon CPT copyright 2019 [employer]. All rights reserved. The codes documented in this report are preliminary and upon ham passer review may be revised to meet current compliance requirements. Jaylon Burnham DO 12/21/2020 9:01:14 AM Electronically signed by Jaylon Bryden , DO Number of Addenda: 0 Note Initiated On: 12/21/2020 8:30 AM Estimated Blood Loss: Estimated blood loss was minimal.
[2020-12-21 09:20] VITALS: BP 135/95
== END 2020-12-21 09:28 | disposition home or self-care (01) ==
LOC: M OPP 07:40
PROVIDERS: ATTEND Surgery
DX: Z12.11 Encounter for screening for malignant neoplasm of colon (principal); Z86.010 Personal history of colon polyps; R12 Heartburn; K63.5 Polyp of colon; K64.0 First degree hemorrhoids; D13.0 Benign neoplasm of esophagus; K22.8 Other specified diseases of esophagus; G43.909 Migraine, unspecified, not intractable, without status migrainosus; G47.30 Sleep apnea, unspecified; K21.9 Gastro-esophageal reflux disease without esophagitis; F17.210 Nicotine dependence, cigarettes, uncomplicated; Z88.0 Allergy status to penicillin; Z79.899 Other long term (current) drug therapy
CPT/HCPCS: 43239; 45380; 88305; J3010

== ENCOUNTER → 2021-01-12 | Outpatient (REF) | payer OTHER ==
[~2021-01-12] MED LIST changes: -NS 1,000 ML IV ONE
[2021-01-12 14:37] LABS: HEMATOCRIT 46.9 % (42.0-52.0); HEMOGLOBIN 15.9 g/dl (13.5-17.5); MEAN CORPUSCULAR HEMOGLOBIN 31.2 pg (27.0-33.0); MEAN CORPUSCULAR HGB CONC 33.9 g/dl (32.0-36.5); PLATELET COUNT, AUTOMATED 277 10^3/uL (150-450); WHITE BLOOD COUNT 9.2 10^3/uL (4.0-10.0)
[2021-01-12 15:03] LABS: ALBUMIN 3.9 GM/DL (3.2-5.2); ALT/SGPT 38 U/L (12-78); BILIRUBIN,TOTAL 0.7 MG/DL (0.2-1.0); BLOOD UREA NITROGEN 13 MG/DL (7-18); CALCIUM LEVEL 9.1 MG/DL (8.5-10.1); CARBON DIOXIDE LEVEL 25 MEQ/L (21-32); CHLORIDE LEVEL 108 MEQ/L (98-107); CHOLESTEROL LEVEL 192 MG/DL (<200); CREATININE FOR GFR 1.08 MG/DL (0.70-1.30); GLOMERULAR FILTRATION RATE > 60.0 (>56); GLUCOSE, FASTING 96 MG/DL (70-100); HDL CHOLESTEROL 32 MG/DL (>40); LDL CHOLESTEROL 120 MG/DL (<100); NON-HDL-C 160 MG/DL; POTASSIUM SERUM 4.1 MEQ/L (3.5-5.1); SODIUM LEVEL 140 MEQ/L (136-145); TOTAL PROTEIN 7.3 GM/DL (6.4-8.2); TRIGLYCERIDES LEVEL 200 MG/DL (<150)
[2021-01-12 17:51] LABS: HEMOGLOBIN A1c 5.8 %
== END ==
LOC: M SFHCPLAZ 11:18
PROVIDERS: ATTEND Student in an Organized Health Care Education/Training Program
DX: I10 Essential (primary) hypertension (principal); R73.03 Prediabetes

== ENCOUNTER → 2021-06-16 | Outpatient (CLI) | payer OTHER ==
[2021-06-16 10:41] LABS: CHOLESTEROL RISK RATIO 5.703 (<5)
[2021-06-16 10:54] LABS: HEMOGLOBIN A1c 5.9 %
== END ==
LOC: M PLALAB 09:11
PROVIDERS: ATTEND Student in an Organized Health Care Education/Training Program
DX: E78.5 Hyperlipidemia, unspecified (principal); R73.03 Prediabetes

== ENCOUNTER → 2022-02-13 | Outpatient (CLI) | payer OTHER ==
[~2022-02-13] MED LIST changes: -IBUP200T45 PO; +IBUP200T46 PO
== END ==
LOC: M RAD 07:30
PROVIDERS: ATTEND Student in an Organized Health Care Education/Training Program
DX: Z12.2 Encounter for screening for malignant neoplasm of respiratory organs (principal); F17.200 Nicotine dependence, unspecified, uncomplicated

== ENCOUNTER → 2022-03-05 | Outpatient (REF) | payer OTHER | LOC: M SFHCPLAZ 08:42 | PROVIDERS: ATTEND Family Medicine | DX: Z53.20 Procedure and treatment not carried out because of patient's decision for unspecified reasons (principal) ==

== ENCOUNTER → 2022-03-05 | Outpatient (CLI) | payer OTHER ==
[2022-03-05 13:15] LABS: HEMATOCRIT 47.2 % (42.0-52.0); HEMOGLOBIN 16.2 g/dl (13.5-17.5); MEAN CORPUSCULAR HEMOGLOBIN 31.3 pg (27.0-33.0); MEAN CORPUSCULAR HGB CONC 34.3 g/dl (32.0-36.5); MEAN CORPUSCULAR VOLUME 91.1 fl (80.0-96.0); PLATELET COUNT, AUTOMATED 290 10^3/uL (150-450); RED BLOOD COUNT 5.18 10^6/uL (4.30-6.10); WHITE BLOOD COUNT 9.8 10^3/uL (4.0-10.0)
[2022-03-05 13:45] LABS: ALT/SGPT 49 U/L (12-78); BILIRUBIN,TOTAL 0.3 MG/DL (0.2-1.0); BLOOD UREA NITROGEN 14 MG/DL (7-18); CALCIUM LEVEL 9.4 MG/DL (8.5-10.1); CARBON DIOXIDE LEVEL 28 MEQ/L (21-32); CHLORIDE LEVEL 110 MEQ/L (98-107); CREATININE FOR GFR 1.03 MG/DL (0.70-1.30); GLOMERULAR FILTRATION RATE > 60.0 (>56); GLUCOSE, FASTING 118 MG/DL (70-100); POTASSIUM SERUM 4.7 MEQ/L (3.5-5.1); SODIUM LEVEL 142 MEQ/L (136-145); TOTAL PROTEIN 7.1 GM/DL (6.4-8.2)
== END ==
LOC: M PLALAB 09:04
PROVIDERS: ATTEND Physician Assistant
DX: R10.11 Right upper quadrant pain (principal)

== ENCOUNTER → 2022-09-13 | Outpatient (CLI) | payer OTHER ==
[2022-09-13 16:03] LABS: ALBUMIN 3.8 GM/DL (3.2-5.2); ALT/SGPT 41 U/L (12-78); BILIRUBIN,TOTAL 0.6 MG/DL (0.2-1.0); BLOOD UREA NITROGEN 12 MG/DL (7-18); CALCIUM LEVEL 8.9 MG/DL (8.5-10.1); CARBON DIOXIDE LEVEL 25 MEQ/L (21-32); CHLORIDE LEVEL 108 MEQ/L (98-107); CREATININE FOR GFR 1.05 MG/DL (0.70-1.30); GLOMERULAR FILTRATION RATE > 60.0 (>56); GLUCOSE, FASTING 93 MG/DL (70-100); POTASSIUM SERUM 4.6 MEQ/L (3.5-5.1); SODIUM LEVEL 139 MEQ/L (136-145); TOTAL PROTEIN 7.2 GM/DL (6.4-8.2)
== END ==
LOC: M PLALAB 11:22
PROVIDERS: ATTEND Student in an Organized Health Care Education/Training Program
DX: R19.8 Other specified symptoms and signs involving the digestive system and abdomen (principal)

== ENCOUNTER → 2022-09-13 | Outpatient (CLI) | payer OTHER | LOC: M RAD 10:31 | PROVIDERS: ATTEND Student in an Organized Health Care Education/Training Program | DX: R19.8 Other specified symptoms and signs involving the digestive system and abdomen (principal) ==

== ENCOUNTER → 2022-09-17 | Outpatient (CLI) | payer OTHER | LOC: M PLAIMG 15:23 | PROVIDERS: ATTEND Student in an Organized Health Care Education/Training Program | DX: S40.859A Superficial foreign body of unspecified upper arm, initial encounter (principal) ==

== ENCOUNTER → 2022-09-18 | Outpatient (CLI) | payer OTHER ==
[~2022-09-18] MED LIST changes: +PROHANCE 279.3MG/ML 15ML VIAL As Ordered ONE; +PROHANCE 279.3MG/ML 5ML VIAL As Ordered ONE
== END ==
LOC: M RAD 15:44
PROVIDERS: ATTEND Student in an Organized Health Care Education/Training Program
DX: M50.31 Other cervical disc degeneration, high cervical region (principal); M50.321 Other cervical disc degeneration at C4-C5 level; M50.322 Other cervical disc degeneration at C5-C6 level; M50.323 Other cervical disc degeneration at C6-C7 level; M99.61 Osseous and subluxation stenosis of intervertebral foramina of cervical region; Z77.018 Contact with and (suspected) exposure to other hazardous metals
CPT/HCPCS: 70200; 70250; 72156; A9576

== ENCOUNTER → 2022-10-05 | Outpatient (CLI) | payer OTHER ==
[~2022-10-05] MED LIST changes: -PROHANCE 279.3MG/ML 15ML VIAL As Ordered ONE; -PROHANCE 279.3MG/ML 5ML VIAL As Ordered ONE
== END ==
LOC: M PLAIMG 12:34
PROVIDERS: ATTEND Otolaryngology
DX: R22.1 Localized swelling, mass and lump, neck (principal)

== ENCOUNTER → 2022-12-21 | Outpatient (CLI) | payer OTHER | LOC: M LABSMTC 10:16 | PROVIDERS: ATTEND Anesthesiology | DX: Z01.812 Encounter for preprocedural laboratory examination (principal); Z20.822 Contact with and (suspected) exposure to COVID-19 ==

== ENCOUNTER → 2022-12-24 | Outpatient (CLI) | payer OTHER | LOC: M EKG 15:58 | PROVIDERS: ATTEND Anesthesiology | DX: Z01.810 Encounter for preprocedural cardiovascular examination (principal); I45.10 Unspecified right bundle-branch block ==

== ENCOUNTER → 2022-12-25 | Outpatient (CLI) | payer OTHER ==
[2022-12-25 11:07] LABS: BASO # 0.1 10^3/uL (0.0-0.2); EOS # 0.2 10^3/uL (0.0-0.5); EOS % 2.5 % (0.0-3.0); HEMATOCRIT 47.6 % (42.0-52.0); LYMPH # 4.9 10^3/uL (1.5-5.0); LYMPH % 55.6 % (24.0-44.0); MEAN CORPUSCULAR HEMOGLOBIN 30.8 pg (27.0-33.0); MEAN CORPUSCULAR HGB CONC 33.6 g/dl (32.0-36.5); MEAN CORPUSCULAR VOLUME 91.7 fl (80.0-96.0); MONO # 0.6 10^3/uL (0.0-0.8); MONO % 6.4 % (2.0-8.0); NEUTROPHILS % 34.2 % (36.0-66.0); PLATELET COUNT, AUTOMATED 271 10^3/uL (150-450); RED BLOOD COUNT 5.19 10^6/uL (4.30-6.10); WHITE BLOOD COUNT 8.9 10^3/uL (4.0-10.0)
[2022-12-25 11:39] LABS: ALBUMIN 3.8 G/DL (3.2-5.2); ALKALINE PHOSPHATASE 81 U/L (46-116); ALT/SGPT 32 U/L (7.0-40); AST/SGOT 22 U/L (<34); BILIRUBIN,DIRECT 0.1 MG/DL (<0.4); BILIRUBIN,TOTAL 0.4 MG/DL (0.3-1.2); BLOOD UREA NITROGEN 13 MG/DL (9-23); GLOMERULAR FILTRATION RATE > 60.0 (>56); TOTAL PROTEIN 6.6 G/DL (5.7-8.2)
[2022-12-26 23:09] LABS: IGASUB2 137.2 mg/dL (73.2-301.2); IGASUB3 82.3 mg/dL (13.4-97.9); IgA SERUM (part of Subclasses) 192 mg/dL (90-386); TISSUE TRANSGLUTAMINASE IgA <2 U/mL (0-3)
== END ==
LOC: M LAB 12-24 16:27 → M PLALAB 08:12
PROVIDERS: ATTEND Internal Medicine Gastroenterology
DX: R10.11 Right upper quadrant pain (principal)

== ENCOUNTER 2022-12-26 09:58 | Day surgery (SDC) | payer OTHER ==
[~2022-12-26] VITALS: Ht 172.7 cm; Wt 109.2 kg
[2022-12-26] MEDS ORDERED: LR 1,000 ML IV SCH ×3 (10:40→15:05)
[2022-12-26] MEDS ORDERED: OXYMETAZOLINE 0.05% NASAL SPRAY (AFRIN) As Ordered ONE (13:26)
[2022-12-26] MEDS ORDERED: fentaNYL 100 MCG/2 ML INJECTION As Ordered ONE (13:33)
[2022-12-26] MEDS ORDERED: MIDAZOLAM INJ 2MG/2ML VIAL As Ordered ONE (13:33)
[2022-12-26] MEDS ORDERED: ACETAMINOPHEN 1000MG 100ML IV BAG As Ordered ONE (13:54)
[2022-12-26] MEDS ORDERED: ESMOLOL INJ 100MG/10ML VIAL As Ordered ONE (13:59)
[2022-12-26] MEDS ORDERED: ONDANSETRON 4MG 2ML VIAL IV PRN ×2 (14:15→15:10)
[2022-12-26] MEDS ORDERED: fentaNYL 100 MCG/2 ML INJECTION IV PRN (14:15)
[2022-12-26] MEDS ORDERED: oxyCODONE 5MG TAB PO PRN (14:15)
[2022-12-26] MEDS ORDERED: MEPERIDINE 25 MG/ML 1ML VIAL IV PRN (14:15)
[2022-12-26] MEDS ORDERED: LABETALOL 100MG/20ML VIAL IV PRN (14:35)
[2022-12-26 15:00] VITALS: BP 158/86
[2022-12-26] MEDS ORDERED: HYDROcodone/APAP LIQUID 7.5-325MG 15ML UDC (LORTAB ELIXIR) PO PRN (15:05)
== END 2022-12-26 15:18 | disposition home or self-care (01) ==
LOC: M SDC 09:58
PROVIDERS: ATTEND Otolaryngology
DX: J38.1 Polyp of vocal cord and larynx (principal); K21.9 Gastro-esophageal reflux disease without esophagitis; M54.2 Cervicalgia; M54.40 Lumbago with sciatica, unspecified side; F17.210 Nicotine dependence, cigarettes, uncomplicated; Z88.0 Allergy status to penicillin; Z91.030 Bee allergy status; Z79.899 Other long term (current) drug therapy
CPT/HCPCS: 31536; 88305; J2250; J3010

== ENCOUNTER → 2023-03-13 | Outpatient (CLI) | payer OTHER | LOC: M CARPUL 09:21 | PROVIDERS: ATTEND Student in an Organized Health Care Education/Training Program | DX: G47.33 Obstructive sleep apnea (adult) (pediatric) (principal); I08.1 Rheumatic disorders of both mitral and tricuspid valves; I87.8 Other specified disorders of veins ==

== ENCOUNTER → 2023-04-11 | Outpatient (CLI) | payer OTHER | LOC: M RAD 08:20 | PROVIDERS: ATTEND Internal Medicine Cardiovascular Disease | DX: Z12.2 Encounter for screening for malignant neoplasm of respiratory organs (principal); F17.219 Nicotine dependence, cigarettes, with unspecified nicotine-induced disorders ==

== ENCOUNTER → 2023-04-17 | Outpatient (CLI) | payer OTHER | LOC: M WUC 09:17 | PROVIDERS: ATTEND Nurse Practitioner Family | DX: M25.571 Pain in right ankle and joints of right foot (principal) ==

== ENCOUNTER → 2023-06-04 | Outpatient (CLI) | payer OTHER | LOC: M PAIN 08:00 | PROVIDERS: ATTEND Nurse Practitioner Family | DX: M79.10 Myalgia, unspecified site (principal); G89.29 Other chronic pain; G47.30 Sleep apnea, unspecified; K21.9 Gastro-esophageal reflux disease without esophagitis; I10 Essential (primary) hypertension; F17.210 Nicotine dependence, cigarettes, uncomplicated; Z88.0 Allergy status to penicillin; Z88.8 Allergy status to other drugs, medicaments and biological substances; Z91.030 Bee allergy status; Z79.899 Other long term (current) drug therapy ==

== ENCOUNTER → 2023-07-01 | Outpatient (CLI) | payer OTHER | LOC: M SLEEP HO 11:55 | PROVIDERS: ATTEND Nurse Practitioner Family | DX: G47.33 Obstructive sleep apnea (adult) (pediatric) (principal) ==

== ENCOUNTER → 2024-01-07 | Outpatient (CLI) | payer BC, MEDICARE, OTHER | LOC: M RAD 15:18 | PROVIDERS: ATTEND Student in an Organized Health Care Education/Training Program | DX: M54.50 Low back pain, unspecified (principal); M48.061 Spinal stenosis, lumbar region without neurogenic claudication; M51.36 Other intervertebral disc degeneration, lumbar region ==

== ENCOUNTER → 2024-01-15 | Outpatient (CLI) | payer BC ==
[2024-01-15 13:54] LABS: BASO # 0.1 10^3/uL (0.0-0.2); BASO % 0.7 % (0.0-1.0); EOS # 0.2 10^3/uL (0.0-0.5); EOS % 2.1 % (0.0-3.0); HEMATOCRIT 45.2 % (42.0-52.0); HEMOGLOBIN 15.4 g/dl (13.5-17.5); LYMPH # 5.6 10^3/uL (1.5-5.0); LYMPH % 52.8 % (24.0-44.0); MEAN CORPUSCULAR HEMOGLOBIN 30.9 pg (27.0-33.0); MEAN CORPUSCULAR HGB CONC 34.1 g/dl (32.0-36.5); MEAN CORPUSCULAR VOLUME 90.8 fl (80.0-96.0); MONO # 0.6 10^3/uL (0.0-0.8); MONO % 5.5 % (2.0-8.0); NEUTROPHILS # 4.1 10^3/uL (1.5-8.5); NEUTROPHILS % 38.6 % (36.0-66.0); PLATELET COUNT, AUTOMATED 279 10^3/uL (150-450); RED BLOOD COUNT 4.98 10^6/uL (4.30-6.10); WHITE BLOOD COUNT 10.5 10^3/uL (4.0-10.0)
[2024-01-15 14:27] LABS: ALBUMIN 3.7 G/DL (3.2-5.2); ALKALINE PHOSPHATASE 83 U/L (46-116); ALT/SGPT 27 U/L (7.0-40); AST/SGOT 15 U/L (<34); BILIRUBIN,TOTAL 0.3 MG/DL (0.3-1.2); BLOOD UREA NITROGEN 14 MG/DL (9-23); CALCIUM LEVEL 8.1 MG/DL (8.5-10.1); CARBON DIOXIDE LEVEL 26 MMOL/L (20-31); CHLORIDE LEVEL 111 MMOL/L (98-107); CHOLESTEROL LEVEL 160 MG/DL (<200); CHOLESTEROL RISK RATIO 6.06 (<5); GLOMERULAR FILTRATION RATE > 60.0 (>56); GLUCOSE, FASTING 100 MG/DL (60-100); HDL CHOLESTEROL 26.4 MG/DL (>40); NON-HDL-C 133.6 MG/DL; POTASSIUM SERUM 4.3 MMOL/L (3.5-5.1); SODIUM LEVEL 143 MMOL/L (136-145); TOTAL PROTEIN 6.6 G/DL (5.7-8.2); TRIGLYCERIDES LEVEL 308 MG/DL (<150)
== END ==
LOC: M PLALAB 11:26
PROVIDERS: ATTEND Student in an Organized Health Care Education/Training Program
DX: I10 Essential (primary) hypertension (principal); E66.9 Obesity, unspecified

== ENCOUNTER → 2024-11-11 | Outpatient (CLI) | payer BC ==
[2024-11-11 13:13] LABS: HEMOGLOBIN 15.3 g/dl (13.5-17.5); MEAN CORPUSCULAR HEMOGLOBIN 31.7 pg (27.0-33.0); MEAN CORPUSCULAR VOLUME 93.2 fl (80.0-96.0); PLATELET COUNT, AUTOMATED 300 10^3/uL (150-450); RED BLOOD COUNT 4.83 10^6/uL (4.30-6.10); WHITE BLOOD COUNT 10.2 10^3/uL (4.0-10.0)
[2024-11-11 13:19] LABS: INR 1.08; PROTHROMBIN TIME 14.3 SECONDS (12.5-14.5)
[2024-11-11 13:32] LABS: BLOOD UREA NITROGEN 11 MG/DL (9-23); CARBON DIOXIDE LEVEL 31 MMOL/L (20-31); CHLORIDE LEVEL 107 MMOL/L (98-107); CREATININE FOR GFR 1.02 MG/DL (0.70-1.30); GLOMERULAR FILTRATION RATE > 60.0 (>49); GLUCOSE, FASTING 109 MG/DL (74-106); POTASSIUM SERUM 4.6 MMOL/L (3.5-5.1); SODIUM LEVEL 145 MMOL/L (136-145)
[2024-11-11 13:39] LABS: ATYPICAL LYMPH 13 % (0-5); BASOPHILS 1 % (0-1); EOSINOPHILS 2 % (0-3); LYMPHOCYTES 38 % (16-44); MONOCYTES 3 % (0-5); NEUTROPHILS 42 % (28-66)
[2024-11-11 13:40] LABS: PLATELET ESTIMATE NORMAL (NORMAL); SMUDGE CELLS 1+
== END ==
LOC: M PLALAB 09:24
PROVIDERS: ATTEND Student in an Organized Health Care Education/Training Program
DX: Z01.818 Encounter for other preprocedural examination (principal)

== ENCOUNTER → 2025-01-13 | Outpatient (CLI) | payer BC, OTHER | LOC: M LAB 09:56 | PROVIDERS: ATTEND Nurse Practitioner Acute Care | DX: I25.119 Atherosclerotic heart disease of native coronary artery with unspecified angina pectoris (principal) ==

== ENCOUNTER → 2025-10-13 | Outpatient (REF) | payer OTHER ==
[2025-10-13 13:17] LABS: PLATELET COUNT, AUTOMATED 283 10^3/uL (150-450)
[2025-10-13 13:24] LABS: ALT/SGPT 24.0 U/L (7.0-40); AST/SGOT 20.0 U/L (<34); CALCIUM LEVEL 8.9 MG/DL (8.3-10.6); CARBON DIOXIDE LEVEL 24.0 MMOL/L (20-31); CHLORIDE LEVEL 108.0 MMOL/L (98-107); CHOLESTEROL LEVEL 173.0 MG/DL (<200); CHOLESTEROL RISK RATIO 5.25 (<5); CREATININE FOR GFR 1.01 MG/DL (0.70-1.30); GLOMERULAR FILTRATION RATE 84.6 (>49); LDL CHOLESTEROL 108.7 MG/DL (<100); NON-HDL-C 140.1 MG/DL; POTASSIUM SERUM 4.5 MMOL/L (3.5-5.1); SODIUM LEVEL 141.0 MMOL/L (136-145); TRIGLYCERIDES LEVEL 157.0 MG/DL (<150)
[2025-10-13 13:25] LABS: FREE T4 1.09 NG/DL (0.89-1.76)
[2025-10-13 13:45] LABS: INR 1.03
[2025-10-13 14:10] LABS: ESTIMATED AVERAGE GLUCOSE 128.0 MG/DL (60-110)
== END ==
LOC: M SFHCPLAZ 09:20
PROVIDERS: ATTEND Family Medicine
DX: I48.0 Paroxysmal atrial fibrillation (principal); R73.03 Prediabetes; I10 Essential (primary) hypertension